=== PATIENT | male | born 1955 | race Caucasian/White ===

== ENCOUNTER 2018-11-07 21:10 | Inpatient (IN) | payer MEDICARE, SELFPAY ==
[2018-11-07 21:11] VITALS: BP 203/106; PULSE 77; RESP 18; TEMP 36.8; O2SAT 94; BMI 38.4
--- NOTE | 2018-11-07 21:30 | RAD_ITS ---
STUDY: X-RAY - RIGHT WRIST REASON FOR EXAM: Male, 63 years old. Status post fall. Right wrist pain. TECHNIQUE: 3 view(s) of the wrist were obtained. COMPARISON: None. FINDINGS: Normal visualized distal radius and ulna. Normal radiocarpal articulation. Normal distal radioulnar articulation. Normal carpal bones. Normal carpal articulations. There is a small tiny ill-defined calcification of the posterior aspect of the wrist of undetermined significance. Normal carpometacarpal articulation of the thumb. Normal second through fifth carpometacarpal articulations. Normal visualized metacarpal bones. The soft tissue structures are unremarkable. RAD/Wrist min 3 Views IMPRESSION: No demonstrated acute osseous injury. Electronically Signed: Bijan Urbina MD at 22:28 EST Tel , Service support ,
[2018-11-07 22:33] VITALS: BP 124/71; PULSE 74; RESP 16; O2SAT 97
--- NOTE | 2018-11-07 23:35 | RAD_ITS ---
HISTORY: MULTIPLE WOUNDS ON LEFT FOOT, LARGE WOUND AT LATERAL ASPECT OF 5TH MTP JOINTBEST IMAGES POSSIBLE, PATIENT UNABLE TO TOLERATE POSITIONS COMPARISON: None FINDINGS: XR left foot 3 views Left foot equinovarus deformity. Apparent surgical amputation of the fifth toe and majority of the fifth metatarsal. Residual bone fragment of the proximal and mid fifth metatarsal and this fragment shows irregularity and areas of lucency, possible osteomyelitis. Overlying large gas-filled soft tissue ulcer at the lateral midfoot. Apparent bone destruction with osteomyelitis at the base of the fourth metatarsal and possibly base of the third metatarsal. Underlying osteoarthritis of the tarsometatarsal joints. No acute fracture seen. No radiopaque foreign body. RAD/Foot min 3 Views IMPRESSION: 1. Large soft tissue ulcer and considerable left foot deformity, details above. Probable osteomyelitis. 2. If not already performed, further correlation with 3 phase bone scan could be obtained. at 0102 Reported and signed by: Ted iGl MD Electronically Signed: Ted Gil, at 1:01 EST Tel , Service support ,
[2018-11-07 23:46] LABS: Anion Gap 6 (5-15); BUN 19 mg/dL (7-18); BUN/Creat Ratio 21.4 RATIO (10-20); Calcium,Total 8.6 mg/dL (8.5-10.1); Chloride 103 mmol/L (98-107); Creatinine, Serum 0.89 mg/dL (0.70-1.30); EST Glomerular Filtration Rate 93 mL/min (>60); Est Glom Filt Rate - Afr Amer 112 mL/min (>60); Estimated Creatinine Clearance 87.16 ml/min; Glucose 123 mg/dL (74-106); Potassium 4.1 mmol/L (3.5-5.1); Sodium Level 134 mmol/L (136-145)
[2018-11-07 23:50] LABS: Absolute Lymphocyte Count 2.81 X10^3/ul (0.83-4.51); Absolute Neutrophil Count 5.3 X10^3/uL (2.0-7.7); Basophil# 0.06 X10^3/uL; Basophil% 0.6 % (0-1); Eosinophil# 0.73 X10^3/uL; Eosinophils% 7.6 % (0-5); Hematocrit 43.3 % (40-54); Hemoglobin 13.3 g/dl (13.0-16.5); Lymphocyte # 2.81 X10^3/ul (4.0); Lymphocyte % 29.3 % (19-41); Mean Corp Hgb Conc 30.7 g/gl (32-36); Mean Corpuscular Hgb 24.1 pg (27.0-32.0); Mean Corpuscular Volume 78.3 fL (80-94); Mean Platelet Vol. 9.1 fl (6.2-12.0); Monocyte# 0.67 X10^3/uL; Neutrophil # 5.31 X10^3/uL (2.7-7.7); Neutrophil % 55.3 % (47-70); Platelet Count 282 K/mm3 (150-450); RBC Distribution Width SD 42.8 fl (35.1-43.9); Red Blood Count 5.53 M/mm3 (4.6-6.2); White Blood Count 9.6 K/mm3 (4.4-11.0)
[2018-11-07 23:59] LABS: Erythrocyte Sedimentation Rate 59 mm/hr (0-20); POSITIVE COUNT NO; POSITIVE DIFFERENTIAL NO; POSITIVE MORPHOLOGY NO
[2018-11-08 00:33] VITALS: BP 142/98; PULSE 72; RESP 16; TEMP 36.1; O2SAT 93
--- NOTE | 2018-11-08 00:39 | ED.DCSUM_ITS ---
- ER Visit Summary Date of Service: 11/08/18 Chief Complaint: Left foot wound and wrist pain. History of Present Illness: The patient is a 63 M with multiple medical issues including diabetes and a chronic left foot wound. He has been unable to go to wound care or see any physicians for this and has essentially been homeless. He is out of all of his medication. His left foot wound is getting worse and he has been unable to bear any weight. He was using a wheelchair but now his daughter is no longer willing to help him and he states that she kicked him out of her house tonight he has no vertigo and no way to ambulate. He also fell and injured his right wrist a few days ago so cannot even use a wheelchair or a walker because of right wrist pain. Denies any other injuries associated with his fall. Physical Examination: He is hypertensive but other vitals are within normal limits. He appears somewhat disheveled. Heart tones are regular and without murmur. Lungs are clear bilaterally. Abdomen is soft and nontender. He has no focal or lateralizing neuro findings. Mental status is normal. He has tenderness on the distal radius of the right wrist but skin is intact and he has a normal distal neurovascular examination. No back tenderness. He has extensive stasis dermatitis changes and edema of both lower extremities. Skin is dry and cracked in both feet. Several superficial wounds noted and on his left foot but there is a sizable wound, several centimeters deep on his left mid foot laterally with 5-6 cm of surrounding erythema and foul-smelling purulent drainage. Test Results: Sedimentation rate mildly elevated but not that significant when adjusted for age. Other labs fairly unremarkable. Left foot x-ray reveals osteomyelitis. Right wrist x-ray negative Emergency Department Course and Treatment: He has a significant left foot wound with surrounding cellulitis and possible osteomyelitis on x-ray. He is unable to bear weight and he is homeless. I feel he meets criteria for admission for podiatry consultation, possible ID consultation, and probable usp placement after procedure. He had no rapid progression of the cellulitis here to suggest necrotizing fasciitis. The case was discussed with the hospitalist and he was treated with Zosyn and vancomycin Treatment Plan: Admit medically Disposition: Full admission Impression: Initial encounter left foot osteomyelitis with cellulitis, medication noncompliance This note was generated with [employer] software. It may contain incorrect words, spelling, and punctuation that were not noted in review of the chart prior to signing ED Disposition - Plan for ED Patient:
--- NOTE | 2018-11-08 01:23 | PCM.HP.STD ---
Problem List (1) Osteomyelitis Status: Acute History of Present Illness Date of Admission: 11/08/18 Chief Complaint: leg wound The patient is a 63 year old M with a significant history of type 2 diabetes; asthma; hypertension; CAD s/p CABG; hyperlipidemia; Pacemaker with defibrillator who presented to the emergency department because of inability to bear weight on his legs secondary to wound on his left leg. Patient reports that he used to use a walker to move around but two days ago, he had pain in his right wrist making it more difficult for him to use the walker to bear weight on his feet. He reported that the wound on his left leg has been going on for about 2 years. He reports no pain in the wound of his left leg because of neuropathy. However he reports neuropathic pain which he described as electric sensation in bilateral feet. He reported he is not being seen by a PCP because he violated his gabapentin contracts and because he could not get any more gabapentin he decided to throw away all his medicines and not follow-up medically. Emergency department doctor reported that patient used to live with her daughter but patient has been thrown out of his daughter's house. However upon my interaction with patient he reported that he still lives with his daughter and he has not been thrown out. X-ray of his left foot at emergency department showed probable osteomyelitis. He reported that his right wrist snapped and ever since he has had pain in his right wrist. X-ray of his right wrist at emergency department was unremarkable. Past Medical History Medical History: Medical History (Last Reviewed 11/08/18 @ 07:43 by Holden Massey MD) Diabetes E11.9 HTN (hypertension) I10 Allergies Sulfa (Sulfonamide Antibiotics) Allergy (Verified 07/18/16 16:31) Other Home Medications: Ambulatory Orders Medication Instructions Recorded Aspirin E.C. [Ecotrin] 650 mg PO BID 07/18/16 Acetaminophen [Tylenol] 650 mg PO BID 11/07/18 DiphenhydrAMINE [Benadryl] 50 mg PO BID 11/07/18 Surgical History: coronary bypass surgery, - - permanent pacemaker with defibrillator ; amputation of last toe of left foot; right wrist surgery; mastoidectomy. Lives: With Family Smoking Status: Former smoker Alcohol: None Drugs: Marijuana - *Family History Maternal History Items: Dementia, Heart Disease, Hypertension Paternal History Items: Heart Disease Review of Systems Constitutional: Denies: Chills, Fever, Weight Change HEENT: Denies: Head Aches, Sinus Congestion, Sinus Drainage Cardiovascular: Denies: Chest Pain, Palpitations Respiratory: Denies: Cough, Shortness of breath at rest, Sputum production Gastrointestinal: Denies: Abdominal Pain, Nausea, Vomiting Genitourinary: Denies: Dysuria Musculoskeletal: Reports: Joint Pain - right wrist, Leg Pain - bilateral leg pain Skin: Reports: Wounds - left foot. Denies: Rash Neurological: Reports: - - shooting and electric sensation of bilateral legs.. Denies: Focal weakness Psychiatric: Denies: Anxiety, Depression, Homicidal Ideations, Suicidal Ideations Hematologic/ Lymphatic: Denies: Easy Bruising, Easy Bleeding VTE Information - Inpt Only VTE Present on Admission: No VTE Mechan Device Prophylaxis: None VTE Pharm Prophylaxis ordered?: Yes Patient Problems: Active and Suspected Problems (Last Updated 11/08/18 @ 07:27 by Holden Massey MD) Osteomyelitis (Acute) - Physical Exam General: Alert, Oriented x3, Cooperative, - - In bed shaking bilateral legs secondary to neuropathic pain HEENT: Atraumatic, Normocephalic Neck: Supple, Trachea Midline Lungs: Wheezes Cardiovascular: Regular rate, No murmurs Abdomen: Bowel Sounds Present, Soft, Non Tender Extremities: No edema, Diminished Peripheral Pulses Skin: - - No last toe of left leg. Deep wound at lateral side of left leg with black eschar and surrounding eryhthema. Dryness and scales of bilateral legs. Musculoskeletal: Tenderness - R wrist Neurological: Neuro grossly intact Psych/Mental Status: Normal Affect, Appropriate Vital Signs Temp Pulse Resp BP Pulse Ox 97.0 F L 72 16 142/98 H 93 11/08/18 00:33 11/08/18 00:33 11/08/18 00:33 11/08/18 00:33 11/08/18 00:33 Oxygen Delivery Method Room Air Weight: 117.934 kg Body Mass Index (BMI) 38.4 Laboratory Tests Past 24 Hrs 11/07/18 11/07/18 23:05 23:05 WBC 9.6 RBC 5.53 Hgb 13.3 Hct 43.3 MCV 78.3 L MCH 24.1 L MCHC 30.7 L RDW 15.0 H RDW Differential 42.8 Plt Count 282 MPV 9.1 Immature Gran % (Auto) 0.200 Neut % (Auto) 55.3 Lymph % (Auto) 29.3 [place] % (Auto) 7.0 Eos % (Auto) 7.6 H Baso % (Auto) 0.6 Absolute Neuts (auto) 5.3 Absolute Lymphs (auto) 2.81 Total Counted Not Reportable ESR 59 H Sodium 134 L Potassium 4.1 Chloride 103 Carbon Dioxide 25.0 Anion Gap 6 BUN 19 H Creatinine 0.89 Estim Creat Clear Calc 87.16 Est GFR (MDRD) Af Amer 112 Est GFR (MDRD) Non-Af 93 BUN/Creatinine Ratio 21.4 H Glucose 123 H Calcium 8.6 Assessment/Plan All Active Problems (Last Updated 11/08/18 @ 07:27 by Holden Massey MD) Osteomyelitis (Acute) The patient is a 63 year old M with a significant history of CAD S/P CABG; type 2 diabetes; asthma; hypertension; hyperlipidemia; with Pacemaker and defibrillator; and with probable osteomyelitis of his left foot. Probable osteomyelitis of the left foot Likely chronic X-ray finding of probable osteomyelitis. Patient reported that he has a defibrillator and pacemaker. The last time that he had MRI, the pacemaker company had to adjust his pacemaker before he could have the MRI. Radiologist recommended a triple bone scan. Will not do further imaging at this time. Will consult orthopedic surgery and infectious disease to optimize management. Assistant Speech Language Pathologist was suggested but patient declined a travel cota evaluation saying that he wants his leg amputated and podiatry can only amputate his foot; and further he was not happy with a previous podiatry interaction. We will get bilateral arterial Doppler ESR on admission was elevated at 59 We will check CRP Discussed with emergency department doctor who started patient on vancomycin and Zosyn. We will continue vancomycin and Zosyn. Wound culture was taken while at ED. Patient may need bone biopsy. HTN His blood pressure on admission was 203/106 but it trended down. Likely spurious or because of pain. In any case his blood pressure remained outside goal. As needed labetalol ordered. Consider starting patient on scheduled blood pressure meds. Trend blood pressures. Neuropathic pain Will re-start patient on gabapentin Left wrist pain. No radiographic evidence of fracture Likely muscle sprain/strain PRN oxycodone and tylenol ordered Chronic sinusitis Patient report chronic sinusitis as a child following some procedure (?). Requested benadryl that he reports he uses at home. Will order Claritin at this time. Diabetes Mellitus Blood glucose on BMP at time of admission was within goal Accucheck QACHS ordered. consider discontinuing accuchecks if blood glucose remains within goal . Asthma Noted mild wheezes prn albuterol ordered. History of CABG Consider aspirin after probable surgery of leg. DVT Prophylaxis Heparin subcutaneous Code Visit Inpatient E&M: 32406 Init Hosp L3
[2018-11-08 02:06] VITALS: BMI 40.9
[2018-11-08 02:09] VITALS: BP 140/99; PULSE 75; RESP 18; TEMP 36.6; O2SAT 97
[2018-11-08 02:17] VITALS: BMI 41.0
[2018-11-08] MEDS: oxyCODONE 5 MG Tablet PO ×2 (03:09→10:18)
[2018-11-08] MEDS: Gabapentin 100 MG Capsule 200 MG PO ×2 (03:09→08:26)
--- NOTE | 2018-11-08 04:09 | PCM.RX.CS ---
Consult Pharmacy has been consulted to manage selected antiobiotic: Vancomycin Type of Consult: New start Suspected Infection: Other Prior Doses of Antibiotics Received/Current Regimen: Medications Discontinued Medications Vancomycin HCl 1,500 mg/ (Sodium Chloride) 530 mls @ 250 mls/hr IV X1 ONE Stop: 11/08/18 03:29 Last Admin: 11/08/18 02:29 Dose: 250 mls/hr Labs: Sodium 134 mmol/L (136-145) L 11/07/18 23:05 Potassium 4.1 mmol/L (3.5-5.1) 11/07/18 23:05 Chloride 103 mmol/L (98-107) 11/07/18 23:05 Carbon Dioxide 25.0 mmol/L (21.0-32.0) 11/07/18 23:05 Anion Gap 6 (5-15) 11/07/18 23:05 BUN 19 mg/dL (7-18) H 11/07/18 23:05 Creatinine 0.89 mg/dL (0.70-1.30) 11/07/18 23:05 Est GFR (MDRD) Af Amer 112 mL/min (>60) 11/07/18 23:05 Est GFR (MDRD) Non-Af 93 mL/min (>60) 11/07/18 23:05 BUN/Creatinine Ratio 21.4 RATIO (10-20) H 11/07/18 23:05 Glucose 123 mg/dL (74-106) H 11/07/18 23:05 Weight used for dosin kg Estimated Creatinine Clearance: 87 mL/min Goal Trough: 15-20 mcg/mL Pharmacy Plan for Drug Dosing: Initial dose 1500mg IV x1, 2000mg IV q12h per policy with trough prior to 4th dose. Pharmacy Service will continue to monitor and adjust dosing as required. Follow-Up Labs: Trough Vancomycin - 11/09 @ 0930
[2018-11-08] MEDS: Heparin Injection (Vial) 5,000 UNIT/ML VIAL 5000 UNIT SC (05:41)
[2018-11-08] MEDS: 0.9% NaCl Peripheral Flush Adult/Peds IV (05:41)
[2018-11-08 06:56] LABS: Bedside Glucose 141 mg/dL (70-110)
[2018-11-08 08:25] VITALS: BP 167/93; PULSE 91; RESP 18; TEMP 36.4; O2SAT 96
[2018-11-08] MEDS: Acetaminophen 325 MG Tablet 650 MG PO (08:26)
[2018-11-08] MEDS: Glucerna Shake 120 ML LIQUID PO (08:31)
--- NOTE | 2018-11-08 09:43 | NURSING ---
wound photo: left lateral foot
--- NOTE | 2018-11-08 09:59 | CASEMGMT ---
THOMAS CM Note: Insurance search for [facility] facilities as transfer is being recommended by physician. Per [facility] site, [facility] facilities include: [facility], [facility], [facility], [facility]. THOMAS REYES BSN ACM
[2018-11-08] MEDS: DiphenhydrAMINE 25 MG Capsule 50 MG PO (10:18)
[2018-11-08] MEDS: Lisinopril 20 MG Tablet PO (10:19)
[2018-11-08 10:44] LABS: M R Staph aureus DNA By PCR Negative (Negative); Probe Check PASS; Specimen Processing Control PASS; Staph aureus DNA By PCR POSITIVE (Negative)
--- NOTE | 2018-11-08 11:02 | NURSING ---
face sheet faxed to [facility] for transfer. sent to [phone] per instructions.
[2018-11-08] MEDS: Insulin Lispro 100 UNIT/ML INSULN.PEN SC (11:17)
[2018-11-08 11:20] VITALS: BP 149/75; PULSE 79; RESP 18; TEMP 37.1; O2SAT 97
[2018-11-08 11:26] LABS: Bedside Glucose 194 mg/dL (70-110)
--- NOTE | 2018-11-08 12:18 | NURSING ---
report called to THOMAS Montero at [facility] for patient transfer.
--- NOTE | 2018-11-10 20:44 | PCM.DC.SUM ---
Discharge Date and Diagnosis Date of Admission: 11/08/18 Date of Discharge: 11/08/18 - Primary Discharge Diagnosis #1 osteomyelitis of the left foot with deep wound infection secondary to diabetic neuropathy-multiple gram negative organisms and gram-positive organisms cultured #2 renal vascular disease of the lower extremity secondary to type 2 diabetes #3 hypertension #4 type 2 diabetes #5 noncompliance with medical regimen #6 coronary artery disease #7 chronic low back pain Hospital Course and Treatment Consultations 11/08/18 02:51 Consult: Onc/Wound/health careers instructor Routine Comment: ulcer on left foot Operations: None Procedures: None Summary of Care Provided: The patient is a 63 year old M was seen in the emergency room at [facility] with a chief complaint of a nonhealing wound to his left lateral foot, patient had undergone partial left foot amputation approximately a year ago at [facility]. Patient has type 2 diabetes but is noncompliant with treatment and is currently not taking any medications at the time he was seen in the emergency room. Valuation in the emergency room revealed the patient to have a large wound on his left lateral foot, left foot x-ray was obtained which revealed osteomyelitis, sedimentation rate was mildly elevated. Patient was given IV Zosyn and vancomycin, he was admitted to [place] [id number], [facility] infectious diseases and podiatry was written to see the patient as well as wound care nurse. Wound care nurse saw the patient and his wound was cleaned and new dressing was applied. In talking with the patient, he initially wanted a below the knee amputation on the left leg but then stated that he would consider any surgery to save the function of the foot. Podiatry examined the x-rays and felt that the patient was better served to undergo a below the knee amputation and so I decided to have the patient transferred to [facility] where he had undergone surgery a year before and he had seen a vascular surgeon. Patient was in agreement with this. The ID and podiatry consultations were canceled. On 11/08/18, patient was seen and examined: On examination he appeared in good health and spirits. Vital signs as documented. Skin warm and dry and without overt rashes. Neck without JVD. Lungs clear. Heart exam notable for regular rhythm, normal sounds and absence of murmurs, rubs or gallops. Abdomen unremarkable and without evidence of organomegaly, masses, or abdominal aortic enlargement. Extremities-there is a Charcot joint on the left ankle noted, left foot is wrapped with surgical dressing. Neuro: Cranial nerves II through XII are grossly intact, no focal motor deficits were noted. Psych: Patient is alert and oriented x3, he does not appear anxious or depressed On 11/08/18, patient was transferred to [facility] for further care. Final note: Patient's wound cultures grew out multiple organisms including gram-negative rods and gram-positive cocci. - Physical Exam Vital Signs Temp Pulse Resp BP Pulse Ox 98.7 F 79 18 149/75 H 97 11/08/18 11:20 11/08/18 11:20 11/08/18 11:20 11/08/18 11:20 11/08/18 11:20 Oxygen Delivery Method Room Air Weight: 125.9 kg Body Mass Index (BMI) 40.9 Intake and Output for Last 24 Hours 11/08/18 11/09/18 11/10/18 23:59 23:59 23:59 Intake Total 1627 / 1627 Output Total 1500 / 1500 Balance 127 / 127 Microbiology Past 72 Hours 11/08/18 01:20 Gram Stain - Final Wound - Left Foot Wound Culture - Preliminary Alcaligenes faecalis ssp faeca Gram negative russell#2 Staphylococcus aureus Gram negative russell GNR lactose inventory specialist manager Gram positive organism 11/08/18 03:20 Blood Culture - Preliminary Blood Culture (Wb) - Right Hand No growth in 48 hours. 11/08/18 03:17 Blood Culture - Preliminary Blood Culture (Wb) - Anticubital Right No growth in 48 hours. Home Medications: Medications to take at Discharge Aspirin E.C. [Ecotrin] 650 mg PO BID 07/18/16 Acetaminophen [Tylenol] 650 mg PO BID 11/07/18 DiphenhydrAMINE [Benadryl] 50 mg PO BID 11/07/18 Primary Care Physician: Care Physician,No Primary [Primary Care Provider] - Disposition: Acute care Hospital Minutes spent on discharge:: 32 Patient Condition:: Stable Medical Necessity - Tobacco Use Smoking Status: Former smoker Meaningful Use Info Meaningful Use Diagnoses (Choose all that apply): None applicable Code Visit OBSV E&M: 55892 Observ/hosp same date L3
--- NOTE | 2018-11-10 20:52 | DS.PCM_ITS ---
Discharge Date and Diagnosis Date of Admission: 11/08/18 Date of Discharge: 11/08/18 - Primary Discharge Diagnosis #1 osteomyelitis of the left foot with deep wound infection secondary to diabetic neuropathy-multiple gram negative organisms and gram-positive organisms cultured #2 renal vascular disease of the lower extremity secondary to type 2 diabetes #3 hypertension #4 type 2 diabetes #5 noncompliance with medical regimen #6 coronary artery disease #7 chronic low back pain Hospital Course and Treatment Consultations 11/08/18 02:51 Consult: Onc/Wound/glass loading equipment tender Routine Comment: ulcer on left foot Operations: None Procedures: None Summary of Care Provided: The patient is a 63 year old M was seen in the emergency room at [facility] with a chief complaint of a nonhealing wound to his left lateral foot, patient had undergone partial left foot amputation approximately a year ago at [facility]. Patient has type 2 diabetes but is noncompliant with treatment and is currently not taking any medications at the time he was seen in the emergency room. Valuation in the emergency room revealed the patient to have a large wound on his left lateral foot, left foot x-ray was obtained which revealed osteomyelitis, sedimentation rate was mildly elevated. Patient was given IV Zosyn and vancomycin, he was admitted to [place] [address], [facility] infectious diseases and podiatry was written to see the patient as well as wound care nurse. Wound care nurse saw the patient and his wound was cleaned and new dressing was applied. In talking with the patient, he initially wanted a below the knee amputation on the left leg but then stated that he would consider any surgery to save the function of the foot. Podiatry examined the x-rays and felt that the patient was better served to undergo a below the knee amputation and so I decided to have the patient transferred to [facility] where he had undergone surgery a year before and he had seen a vascular surgeon. Patient was in agreement with this. The ID and podiatry consultations were canceled. On 11/08/18, patient was seen and examined: On examination he appeared in good health and spirits. Vital signs as documented. Skin warm and dry and without overt rashes. Neck without JVD. Lungs clear. Heart exam notable for regular rhythm, normal sounds and absence of murmurs, rubs or gallops. Abdomen unremarkable and without evidence of organomegaly, masses, or abdominal aortic enlargement. Extremities-there is a Charcot joint on the left ankle noted, left foot is wrapped with surgical dressing. Neuro: Cranial nerves II through XII are grossly intact, no focal motor deficits were noted. Psych: Patient is alert and oriented x3, he does not appear anxious or depressed On 11/08/18, patient was transferred to [facility] for further care. Final note: Patient's wound cultures grew out multiple organisms including gram- negative rods and gram-positive cocci. - Physical Exam Vital Signs Temp Pulse Resp BP Pulse Ox 98.7 F 79 18 149/75 H 97 11/08/18 11:20 11/08/18 11:20 11/08/18 11:20 11/08/18 11:20 11/08/18 11:20 Oxygen Delivery Method Room Air Weight: 125.9 kg Body Mass Index (BMI) 40.9 Intake and Output for Last 24 Hours 11/08/18 11/09/18 11/10/18 23:59 23:59 23:59 Intake Total 1627 / 1627 Output Total 1500 / 1500 Balance 127 / 127 Microbiology Past 72 Hours 11/08/18 01:20 Gram Stain - Final Wound - Left Foot Wound Culture - Preliminary Alcaligenes faecalis ssp faeca Gram negative russell#2 Staphylococcus aureus Gram negative russell GNR lactose face hardener Gram positive organism 11/08/18 03:20 Blood Culture - Preliminary Blood Culture (Wb) - Right Hand No growth in 48 hours. 11/08/18 03:17 Blood Culture - Preliminary Blood Culture (Wb) - Anticubital Right No growth in 48 hours. Home Medications: Medications to take at Discharge Aspirin E.C. [Ecotrin] 650 mg PO BID 07/18/16 Acetaminophen [Tylenol] 650 mg PO BID 11/07/18 DiphenhydrAMINE [Benadryl] 50 mg PO BID 11/07/18 Primary Care Physician: Care Physician,No Primary [Primary Care Provider] - Disposition: Acute care Hospital Minutes spent on discharge:: 32 Patient Condition:: Stable Medical Necessity - Tobacco Use Smoking Status: Former smoker Meaningful Use Info Meaningful Use Diagnoses (Choose all that apply): None applicable Code Visit OBSV E&M: 48840 Observ/hosp same date L3
== END 2018-11-08 12:30 | disposition short-term general hospital (02) | DRG 638 ==
LOC: ED 11-08 00:36 → MS2 11-08 01:40
PROVIDERS: Admitting Provider Hospitalist; Emergency Provider Emergency Medicine; Visit Provider Internal Medicine
DX: E11.69 Type 2 diabetes mellitus with other specified complication (principal); M86.672 Other chronic osteomyelitis, left ankle and foot; L03.116 Cellulitis of left lower limb; I25.10 Atherosclerotic heart disease of native coronary artery without angina pectoris; E11.40 Type 2 diabetes mellitus with diabetic neuropathy, unspecified; E11.51 Type 2 diabetes mellitus with diabetic peripheral angiopathy without gangrene; M25.532 Pain in left wrist; Z91.19 Patient's noncompliance with other medical treatment and regimen; J45.909 Unspecified asthma, uncomplicated; E78.5 Hyperlipidemia, unspecified; G89.29 Other chronic pain; M54.5 Low back pain; M14.672 Charcot's joint, left ankle and foot; Z89.422 Acquired absence of other left toe(s); Z95.810 Presence of automatic (implantable) cardiac defibrillator; Z95.1 Presence of aortocoronary bypass graft; Z87.891 Personal history of nicotine dependence; Z23 Encounter for immunization
CPT/HCPCS: 36415; 73110; 73630; 80048; 82962; 85025; 85652; 86140; 87040; 87070; 87075; 87077; 87186; 87205; 87640; 97802; 99284; J7040; J7050; 90686; A4216

== ENCOUNTER 2019-01-03 07:04 | Inpatient (IN) | payer MEDICARE, SELFPAY ==
[2019-01-03] VITALS (34 sets, daily range): BP systolic 94–172; BP diastolic 41–109; PULSE 71–137; RESP 13–31; TEMP 32.2–37.7; O2SAT 92–100; BMI 39.4; BMI 39.9
--- NOTE | 2019-01-03 07:14 | EKG12_ITS ---
Test Reason : CP Blood Pressure : / mmHG Vent. Rate : 116 BPM Atrial Rate : 113 BPM P-R Int : 000 ms QRS Dur : 136 ms QT Int : 370 ms P-R-T Axes : 052 182 047 degrees QTc Int : 514 ms Somatic/Motion Artifact Electronic Ventricular Pacemaker Confirmed by REINALDO ARMANDO, SHARON ([id number]), dictionary editor JACKELYN GANN ([id number]) on 01/06/2019 10:49:59 AM Referred By: BRETT Confirmed By:SHARON NAJERA MD
[2019-01-03] MEDS: Succinylcholine Chloride 200 MG/10 ML Vial 120 MG IV (07:18)
[2019-01-03] MEDS: Propofol 10MG/Ml 1,000 MG/100 ML Bottle 7.476 MG CONT INF ×4 (07:23→22:13)
[2019-01-03 07:34] LABS: International Normalized Ratio 1.1; Prothrombin Time (Protime)PT. 13.7 SECONDS (11.7-14.9)
[2019-01-03] MEDS: fentaNYL 100 MCG/2 ML Ampul IV (07:36)
[2019-01-03] MEDS: fentaNYL drip 100 ML 2.5 MCG CONT INF ×2 (07:41→23:20)
--- NOTE | 2019-01-03 07:45 | RAD_ITS ---
STUDY: X-RAY CHEST REASON FOR EXAM: Male, 63 years old. Shortness of breath/dyspnea. TECHNIQUE: Single AP portable view of the chest. COMPARISON: Comparison is made with prior study dated July 18, 2016. FINDINGS: An endotracheal tube is in situ. The tip is at 2.6 cm proximal to the shabbir. There is evidence of vascular congestion and CHF worse at the right lung base. Blunting of the costophrenic angles. Sternal cerclage wires and vascular clips are present from a prior sternotomy and coronary artery bypass graft procedure (CABG). Cardiomegaly. A left-sided dual-chamber pacemaker is seen. Normal mediastinum and maxwell. Normal visualized pulmonary arteries. There is atherosclerotic calcification of the aortic arch with tortuosity. Normal visualized thoracic spine. Normal visualized ribs, clavicles, and shoulders. There is no demonstrated abnormality of the visualized soft tissue structures of the upper abdomen. RAD/Chest 1 View (Portable) IMPRESSION: An endotracheal tube is in situ and the tip is at 2.6 sinus proximal to the shabbir. CHF. Electronically Signed: José Miguel Chao, at 8:53 EDT , Service support ,
[2019-01-03 07:47] LABS: ALB/GLOB Ratio 0.9 RATIO (0.9-2.4); AST(SGOT) 33 U/L (15-37); Alanine Aminotransfer ALT/SGPT 31 U/L (16-61); Albumin, Serum 3.8 g/dL (3.2-5.0); Alkaline Phosphatase 81 U/L (45-117); Anion Gap 19 (5-15); BUN 21 mg/dL (7-18); BUN/Creat Ratio 14.5 RATIO (10-20); Calcium,Total 8.7 mg/dL (8.5-10.1); Chloride 101 mmol/L (98-107); Creatinine, Serum 1.45 mg/dL (0.70-1.30); EST Glomerular Filtration Rate 53 mL/min (>60); Est Glom Filt Rate - Afr Amer 64 mL/min (>60); Estimated Creatinine Clearance 55.24 ml/min; Globulin 4.4 g/dL (2.2-4.2); Glucose 325 mg/dL (74-106); Potassium 4.3 mmol/L (3.5-5.1); Protein, Total 8.2 g/dL (6.4-8.2); Sodium Level 135 mmol/L (136-145)
[2019-01-03] MEDS: MethylPREDNISolone 125 MG/2 ML Vial IV (07:49)
[2019-01-03 07:50] LABS: Mucous, Urine 0 SEEN /hpf (<or=2+)
[2019-01-03] MEDS: Albuterol 2.5 MG/3 ML VIAL.NEB. INHALATION ×2 (07:50→08:12)
[2019-01-03 07:51] LABS: Hematocrit 50.6 % (40-54); Hemoglobin 16.3 g/dl (13.0-16.5); Mean Corp Hgb Conc 32.2 g/gl (32-36); Mean Corpuscular Hgb 27.3 pg (27.0-32.0); Mean Corpuscular Volume 84.8 fL (80-94); Mean Platelet Vol. 9.5 fl (6.2-12.0); Platelet Count 301 K/mm3 (150-450); RBC Distribution Width CV 18.8 % (11.6-14.6); RBC Distribution Width SD 58.6 fl (35.1-43.9); Red Blood Count 5.97 M/mm3 (4.6-6.2); White Blood Count 20.4 K/mm3 (4.4-11.0)
[2019-01-03 07:52] LABS: POSITIVE COUNT NO; POSITIVE DIFFERENTIAL YES; POSITIVE MORPHOLOGY NO
[2019-01-03 07:52] LABS: Color, Urine Yellow (Yellow); Glucose, Dipstick 50 mg/dl (Normal); Ketone-Dipstick Negative (Negative); Leukocyte Esterase-Dipstick 25 /ul (Negative); Nitrite-Dipstick Negative (Negative); Occult Blood-Urine 25 /ul (Negative); Protein-Dipstick 500 mg/dl (Negative); Specific Gravity, Urine 1.015 (1.002-1.030); Urine Bilirubin Dipstick Negative (Negative); Urine Clarity Clear (Clear); Urine Urobilinogen Normal (Normal); Urine pH 6.5 (5.0 - 8.0)
[2019-01-03 07:53] LABS: Lactic Acid 10.2 mmol/L (0.4-2.0)
--- NOTE | 2019-01-03 07:53 | ED.RN ---
PT ARRIVED TO ED VIA [facility]. PT WAS PALE DIAPHORETIC AND EXTREMELY LABORED BREATHING WITH NRB IN PLACE. PT VERBAL RESPONSES WERE ONE WORD AND DIFFICULT TO UNDERSTAND. PT WAS IN TRIPOD POSITION. UNABLE TO GET A BP UPON ARRIVAL. EMS STATES PT DENIES ANY PAIN BUT WOKE UP SOB. STATED THAT FAMILY CLAIMED HE HAS HAD A COUGH AT NIGHT THE LAST COUPLE NIGHTS. DR PHAN WAS AT THE BEDSIDE UPON ARRIVAL. PT WAS VISIBLY GETTING TIRED FROM AMOUNT OF EFFORT NEEDED TO BREATH SO THE DECISION TO INTUBATE WAS MADE AND PT WAS AGREEABLE. PT WAS THEN MEDICATED WITH ETOMIDATE AND SUCC AND THEN INTUBATED FROM A SITTING POSITION. 7.5 ET TUBE PLACED 23 AT LIP. GOOD COLOR CHANGE AND EQUAL BREATH SOUNDS. OG PLACED AND TEMP ACOSTA PLACED WELL. PT HAS A 20 IV IN LEFT AND RIGHT HANDS. PROPOFOL IS INFUSING INTO THE LEFT HAND AND HAS BEEN TITRATED TO 30 MCG/KG/HR AND FENTANYL IS INFUSING IN THE RIGHT HAND AT 50MCG/HR. PT IS CURRENTLY RESTING COMFORTABLY. PT HAD A LEFT ABOVE THE KNEE AMPUTATION ROUGHLY 2 MONTHS AGO. INCISION SITE IS HEALING NICELY. NO SIGNS OF REDNESS OR SWELLING. PTS URINE IS CLEAR AND YELLOW.
[2019-01-03 07:57] LABS: Bacteria RARE /hpf (None Seen); Red Blood Cells-Urine 0-5 SEEN /hpf (0-5); Squamous Epithelial Cells - UA 0-5 SEEN /hpf (0-5); White Blood Cells 0-5 SEEN /hpf (0-5)
[2019-01-03] MEDS: Ipratropium/Albuterol Sulfate 3 ML AMPUL.NEB INHALATION ×4 (08:12→18:34)
[2019-01-03] MEDS: 0.9% Normal Saline 1,000 ML 999 ML IV ×2 (08:12→09:31)
--- NOTE | 2019-01-03 08:12 | ED.RN ---
PT WAS ATTEMPTING TO REACH UP AND GRAB TUBE. SEDATION WAS INCREASED AND SOFT RESTRAINTS WERE PLACED.
[2019-01-03 08:20] LABS: BNP,B-Type NATRIURETIC PEPTIDE 139.4 pg/mL (0-100)
[2019-01-03 08:32] LABS: Basophil 1 % (0-1); Eosinophil 4 % (0-5); Lymphocyte 49 % (19-41); Metamyelocyte 2 % (0-1); Monocyte 5 % (0-10); Neutrophil-Band 2 % (0-5); Neutrophil-Segmented 37 % (47-70); Total Cells Counted 100 (MANUAL DIFF)
[2019-01-03 08:35] LABS: Anisocytosis 1+; Differential Indicated MANUAL DIFF; Platelet Estimate ADEQUATE (ADEQ); Polychromasia 1+
[2019-01-03 08:37] LABS: Neutrophil # 7.96 X10^3/uL (2.7-7.7)
[2019-01-03 08:38] LABS: Absolute Lymphocyte Count 9.99 X10^3/ul (0.83-4.51); Lymphocyte # 9.99 X10^3/ul (4.0)
[2019-01-03 08:41] LABS: Base Excess -10 mmol/L (-2 to +2); Bicarbonate 18.8 mmol/L (22-26); Blood Gas Specimen Type ART; FI02 100; Mode A-C; O2 Delivery Device Vent; PEEP 5; PO2 289 mmHG (75-100); RR 16; SITE R Radial; SO2 100 % (95-99); Time Given 840; Total Carbon Dioxide 20 mmol/L; Vt 500; pCO2 51.1 mmHg (35-45); pH 7.17 (7.35-7.45)
--- NOTE | 2019-01-03 08:47 | CPS ---
0840...ABG critical value PH. Result given to ER physician Stefano.
--- NOTE | 2019-01-03 09:07 | ED.VISSUMM ---
- ER Visit Summary Date of Service: 01/03/19 Chief Complaint: Shortness of breath History of Present Illness: The patient is a 63 M who presents with shortness of breath. According to EMS he woke up very short of breath this morning. The history from him is limited because of his extreme shortness of breath and difficulty speaking. He states that he had a cough for a month. No fevers or chest pain. He does have a history of COPD. No documented history of CHF. According to EMS he was 60% on room air. They applied a nonrebreather mask. He does smoke marijuana every day. Physical Examination: Vital signs reviewed. Patient tachypneic, tachycardic. Temperature normal. He is extremely diaphoretic. HEENT exam unremarkable. Heart is tachycardic and regular with no murmurs. Lungs have diminished sounds and wheezing bilaterally. He is tachypneic. Abdomen soft and nondistended. Extremities reveal no edema. He does have a left above-knee amputation. His neurologic exam reveals he is alert and oriented and can answer questions but he is extremely short of breath while doing so. Test Results: EKG was paced rhythm with artifact. White blood cell count 20.4, creatinine 1.45, troponin 0 0.032, lactate 10.2. ABG is 7.17/51/289/18.8 on the ventilator. Chest x-ray read by radiologist reveals CHF. Emergency Department Course and Treatment: The patient was starting to get tired upon his arrival. I electively intubated him using etomidate and succinylcholine. He was intubated sitting up using the glide scope. An endotracheal tube was placed without difficulty. He was given Solu-Medrol and aerosol treatments. I empirically given vancomycin and Zosyn. His chest x-ray is reading CHF but he does have signs of an infectious etiology. At this point the patient will be admitted to the ICU. I spoke with the hospitalist and the race relations adviser. Treatment Plan: [] Disposition: Admit to ICU Impression: Acute respiratory failure Undifferentiated shock Lactic acidosis This note was generated with Br[employer]ation software. It may contain incorrect words, spelling, and punctuation that were not noted in review of the chart prior to signing ED Disposition - Plan for ED Patient: Referrals: Care Physician,No Primary [Primary Care Provider] -
--- NOTE | 2019-01-03 09:10 | ED.DCSUM_ITS ---
- ER Visit Summary Date of Service: 01/03/19 Chief Complaint: Shortness of breath History of Present Illness: The patient is a 63 M who presents with shortness of breath. According to EMS he woke up very short of breath this morning. The history from him is limited because of his extreme shortness of breath and difficulty speaking. He states that he had a cough for a month. No fevers or chest pain. He does have a history of COPD. No documented history of CHF. According to EMS he was 60% on room air. They applied a nonrebreather mask. He does smoke marijuana every day. Physical Examination: Vital signs reviewed. Patient tachypneic, tachycardic. Temperature normal. He is extremely diaphoretic. HEENT exam unremarkable. Heart is tachycardic and regular with no murmurs. Lungs have diminished sounds and wheezing bilaterally. He is tachypneic. Abdomen soft and nondistended. Extremities reveal no edema. He does have a left above-knee amputation. His neurologic exam reveals he is alert and oriented and can answer questions but he is extremely short of breath while doing so. Test Results: EKG was paced rhythm with artifact. White blood cell count 20.4, creatinine 1.45, troponin 0 0.032, lactate 10.2. ABG is 7.17/51/289/18.8 on the ventilator. Chest x-ray read by radiologist reveals CHF. Emergency Department Course and Treatment: The patient was starting to get tired upon his arrival. I electively intubated him using etomidate and succinylcholine. He was intubated sitting up using the glide scope. An endotracheal tube was placed without difficulty. He was given Solu-Medrol and a erosol treatments. I empirically given vancomycin and Zosyn. His chest x-ray is reading CHF but he does have signs of an infectious etiology. At this point the patient will be admitted to the ICU. I spoke with the hospitalist and the equipment processer storage. Treatment Plan: [] Disposition: Admit to ICU Impression: Acute respiratory failure Undifferentiated shock Lactic acidosis This note was generated with [employer] software. It may contain incorrect words, spelling, and punctuation that were not noted in review of the chart p rior to signing ED Disposition - Plan for ED Patient: Referrals: Care Physician,No Primary [Primary Care Provider] -
--- NOTE | 2019-01-03 09:19 | ED.RN ---
UPON ASSESSMENT PT PULSE OX WAS 91-92 WITH A GOOD WAVE FORM AND RR WAS IN THE LOW 20'S. [facility] WAS CALLED TO COME SUCTION THE PT AND PULSE OX IMPROVED TO 96. PT TOLERATED WELL AND APPEARS TO BE RESTING COMFORTABLY. COOL WASH CLOTH WAS USED TO WIPE OF HIS FACE AND FOREHEAD SINCE THE PT IS NO LONGER DIAPHORETIC.
--- NOTE | 2019-01-03 10:39 | PCM.HP.STD ---
Problem List (1) Acute respiratory failure with hypoxia and hypercapnia Status: Acute (2) Gram-negative pneumonia Status: Acute (3) Severe sepsis Status: Acute (4) Respiratory acidosis Status: Acute (5) ARIANNE (acute kidney injury) Status: Acute History of Present Illness Date of Admission: 01/03/19 Chief Complaint: shortness of breath. The patient is a 63 year old M who is currently intubated and sedated so unable provide any history. History obtained through the emergency room physician and documentation. Patient presented with shortness of breath. Apparently, patient woke up with shortness of breath previously had had a cough for about a month. Patient was noted to be 6% on room air with EMS. Patient was placed on a nonrebreather. Given that it appears that the patient was tiring out decision was made in the emergency room to intubate the patient. Patient had a chest x-ray that was concerning for heart failure but clinically patient was not in appearance of heart failure and I was concerned more for pneumonia as patient was just hospitalized here 2 months ago the patient received on vancomycin and Zosyn. [] Past Medical History Medical History: Medical History (Last Updated 01/03/19 @ 10:44 by Bhanu Olmedo DO) CAD (coronary artery disease) I25.10 PAD (peripheral artery disease) I73.9 COPD (chronic obstructive pulmonary disease) J44.9 Diabetes E11.9 HTN (hypertension) I10 Allergies Sulfa (Sulfonamide Antibiotics) Allergy (Verified 07/18/16 16:31) Other Home Medications: Ambulatory Orders Medication Instructions Recorded Aspirin E.C. [Ecotrin] 650 mg PO BID 07/18/16 Acetaminophen [Tylenol] 650 mg PO BID 11/07/18 DiphenhydrAMINE [Benadryl] 50 mg PO BID 11/07/18 Carvedilol 6.25 mg PO BID 01/03/19 Escitalopram Oxalate [Lexapro] 10 mg PO DAILY 01/03/19 Ferrous Sulfate 325 mg PO DAILY 01/03/19 Lisinopril 5 mg PO DAILY 01/03/19 Metformin HCl [Glucophage] 850 mg PO BIDCM 01/03/19 Surgical History: coronary bypass surgery, - - permanent pacemaker with defibrillator ; amputation of last toe of left foot; right wrist surgery; mastoidectomy. left AKA Smoking Status: Never smoker Drugs: Marijuana - *Family History Maternal History Items: Dementia, Heart Disease, Hypertension Paternal History Items: Heart Disease Review of Systems Comment: Unable to obtain as patient is intubated and sedated. VTE Information - Inpt Only VTE Present on Admission: No VTE Mechan Device Prophylaxis: None VTE Pharm Prophylaxis ordered?: Yes Patient Problems: Active and Suspected Problems (Last Reviewed 11/08/18 @ 07:43 by Holden Massey MD) Acute respiratory failure with hypoxia and hypercapnia (Acute) Gram-negative pneumonia (Acute) Severe sepsis (Acute) Respiratory acidosis (Acute) ARIANNE (acute kidney injury) (Acute) - Physical Exam General: - - Intubated and sedated. Afebrile. On a ventilator. HEENT: Atraumatic, Normocephalic Oral: - - ET tube in place. Neck: No Nodes, Thyroid Normal Size and Texture Lungs: Normal air movement, - - Coarse breath sounds bilaterally Cardiovascular: Regular rate, Regular Rhythm, Normal S1, Normal S2, No murmurs Abdomen: Bowel Sounds Present, Soft, Non Tender, Non-Distended, No Hepato-splenomegaly Extremities: No edema, No Calf Tenderness Skin: - - Superficial ulcerations on his toes as well as his legs on the right lower extremity. The stump of the left sbepi-pju-[id number] amputation is clean and intact. Musculoskeletal: No Tenderness to Palpation of Joints or Extremities, Muscle Wasting Psych/Mental Status: - - Intubated and sedated Vital Signs Temp Pulse Resp BP Pulse Ox 36.6 C 85 20 H 124/80 H 98 01/03/19 10:01 01/03/19 10:01 01/03/19 10:01 01/03/19 10:01 01/03/19 10:01 Oxygen Flow Rate (L/min) 15 Oxygen Delivery Method Mechanical Ventilator Weight: 124.6 kg Body Mass Index (BMI) 39.4 Laboratory Tests Past 24 Hrs 01/03/19 01/03/19 01/03/19 07:09 07:09 07:09 WBC 20.4 H RBC 5.97 Hgb 16.3 Hct 50.6 MCV 84.8 MCH 27.3 MCHC 32.2 RDW 18.8 H RDW Differential 58.6 H Plt Count 301 MPV 9.5 Immature Gran % (Auto) PRODUCTION LINE WORKER Neut % (Auto) PRODUCTION LINE WORKER Lymph % (Auto) PRODUCTION LINE WORKER Marion % (Auto) PRODUCTION LINE WORKER Eos % (Auto) PRODUCTION LINE WORKER Baso % (Auto) PRODUCTION LINE WORKER Absolute Neuts (auto) 8.0 H Absolute Lymphs (auto) 9.99 H Total Counted 100 Neutrophils % (Manual) 37 L Band Neutrophils % 2 Lymphocytes % (Manual) 49 H Monocytes % (Manual) 5 Eosinophils % (Manual) 4 Basophils % (Manual) 1 Metamyelocytes % 2 H Diff Path Review May foll Platelet Estimate ADEQUATE Polychromasia 1+ Anisocytosis 1+ PT 13.7 INR 1.1 Specimen Type Sample Site pH Bicarbonate Actual POC Total CO2 Base Excess O2 Saturation O2 % ABG pCO2 ABG pO2 Respiration Rate O2 Delivery Device Vent Mode Tidal Volume POC PEEP Blood Gas Notified Whom Blood Gas Notified Time Sodium 135 L Potassium 4.3 Chloride 101 Carbon Dioxide 15.0 L Anion Gap 19 H BUN 21 H Creatinine 1.45 H Estim Creat Clear Calc 55.24 Est GFR (MDRD) Af Amer 64 Est GFR (MDRD) Non-Af 53 L BUN/Creatinine Ratio 14.5 Glucose 325 H Lactic Acid Calcium 8.7 Total Bilirubin 0.30 AST 33 ALT 31 Alkaline Phosphatase 81 Troponin I 0.032 B-Natriuretic Peptide Total Protein 8.2 Albumin 3.8 Globulin 4.4 H Albumin/Globulin Ratio 0.9 Urine Color Urine Clarity Urine pH Ur Specific [place] Urine Protein Urine Glucose (UA) Urine Ketones Urine Occult Blood Urine Nitrite Urine Bilirubin Urine Urobilinogen Ur Leukocyte Esterase Urine RBC Urine WBC Ur Squamous Epith Cells Urine Bacteria Urine Mucus 01/03/19 01/03/19 01/03/19 07:09 07:14 07:30 WBC RBC Hgb Hct MCV MCH MCHC RDW RDW Differential Plt Count MPV Immature Gran % (Auto) Neut % (Auto) Lymph % (Auto) Marion % (Auto) Eos % (Auto) Baso % (Auto) Absolute Neuts (auto) Absolute Lymphs (auto) Total Counted Neutrophils % (Manual) Band Neutrophils % Lymphocytes % (Manual) Monocytes % (Manual) Eosinophils % (Manual) Basophils % (Manual) Metamyelocytes % Diff Path Review Platelet Estimate Polychromasia Anisocytosis PT INR Specimen Type Sample Site pH Bicarbonate Actual POC Total CO2 Base Excess O2 Saturation O2 % ABG pCO2 ABG pO2 Respiration Rate O2 Delivery Device Vent Mode Tidal Volume POC PEEP Blood Gas Notified Whom Blood Gas Notified Time Sodium Potassium Chloride Carbon Dioxide Anion Gap BUN Creatinine Estim Creat Clear Calc Est GFR (MDRD) Af Amer Est GFR (MDRD) Non-Af BUN/Creatinine Ratio Glucose Lactic Acid 10.2 H* Calcium Total Bilirubin AST ALT Alkaline Phosphatase Troponin I B-Natriuretic Peptide 139.4 H Total Protein Albumin Globulin Albumin/Globulin Ratio Urine Color Yellow Urine Clarity Clear Urine pH 6.5 Ur Specific [place] 1.015 Urine Protein 500 H Urine Glucose (UA) 50 H Urine Ketones Negative Urine Occult Blood 25 H Urine Nitrite Negative Urine Bilirubin Negative Urine Urobilinogen Normal Ur Leukocyte Esterase 25 H Urine RBC 0-5 SEEN Urine WBC 0-5 SEEN Ur Squamous Epith Cells 0-5 SEEN Urine Bacteria RARE Urine Mucus 0 SEEN 01/03/19 08:33 WBC RBC Hgb Hct MCV MCH MCHC RDW RDW Differential Plt Count MPV Immature Gran % (Auto) Neut % (Auto) Lymph % (Auto) Marion % (Auto) Eos % (Auto) Baso % (Auto) Absolute Neuts (auto) Absolute Lymphs (auto) Total Counted Neutrophils % (Manual) Band Neutrophils % Lymphocytes % (Manual) Monocytes % (Manual) Eosinophils % (Manual) Basophils % (Manual) Metamyelocytes % Diff Path Review Platelet Estimate Polychromasia Anisocytosis PT INR Specimen Type ART Sample Site R Radial pH 7.17 L* Bicarbonate Actual 18.8 L POC Total CO2 20 Base Excess -10 L O2 Saturation 100 H O2 % 100 ABG pCO2 51.1 H ABG pO2 289 H Respiration Rate 16 O2 Delivery Device Vent Vent Mode A-C Tidal Volume 500 POC PEEP 5 Blood Gas Notified Whom ED Blood Gas Notified Time 840 Sodium Potassium Chloride Carbon Dioxide Anion Gap BUN Creatinine Estim Creat Clear Calc Est GFR (MDRD) Af Amer Est GFR (MDRD) Non-Af BUN/Creatinine Ratio Glucose Lactic Acid Calcium Total Bilirubin AST ALT Alkaline Phosphatase Troponin I B-Natriuretic Peptide Total Protein Albumin Globulin Albumin/Globulin Ratio Urine Color Urine Clarity Urine pH Ur Specific [place] Urine Protein Urine Glucose (UA) Urine Ketones Urine Occult Blood Urine Nitrite Urine Bilirubin Urine Urobilinogen Ur Leukocyte Esterase Urine RBC Urine WBC Ur Squamous Epith Cells Urine Bacteria Urine Mucus Chest x-ray personally reviewed and shows increased patchy infiltrates throughout the lung siddiqi. Assessment/Plan All Active Problems (Last Reviewed 11/08/18 @ 07:43 by Holden Massey MD) Osteomyelitis (Acute) Acute respiratory failure with hypoxia and hypercapnia (Acute) Gram-negative pneumonia (Acute) Severe sepsis (Acute) Respiratory acidosis (Acute) ARIANNE (acute kidney injury) (Acute) 1. Acute hypoxic and hypercapnic respiratory failure Suspect due to suspected gram-negative pneumonia plus his underlying COPD Continue with ventilator with critical care management to assist care Treat the underlying processes 2.Severe sepsis Present on admission 2/2 pneumonia IVF recheck lactate at least part of lactate elevation can be attributed to respiratory failure 3. Suspected gram negative pneumonia Vanc and Zosyn pulm toilet check urinary antigens for strep and legionella check sputum culture 4. Possible AECOPD steroids and BDs 5. ARIANNE suspect prerenal IVF reevaluate 6. CAD/PAD/DM2: complicates care 7. VTE prophylaxis: LMWH Code Visit Inpatient E&M: [id number] Init Hosp L3
--- NOTE | 2019-01-03 10:43 | HP.PCM_ITS ---
Problem List (1) Acute respiratory failure with hypoxia and hypercapnia Status: Acute (2) Gram-negative pneumonia Status: Acute (3) Severe sepsis Status: Acute (4) Respiratory acidosis Status: Acute (5) ARIANNE (acute kidney injury) Status: Acute History of Present Illness Date of Admission: 01/03/19 Chief Complaint: shortness of breath. The patient is a 63 year old M who is currently intubated and sedated so unable provide any history. History obtained through the emergency room physician and documentation. Patient presented with shortness of breath. Apparently, patient woke up with shortness of breath previously had had a cough for about a month. Patient was noted to be 6% on room air with EMS. Patient was placed on a nonrebreather. Given that it appears that the patient was tiring out decision was made in the emergency room to intubate the patient. Patient had a chest x- ray that was concerning for heart failure but clinically patient was not in appearance of heart failure and I was concerned more for pneumonia as patient was just hospitalized here 2 months ago the patient received on vancomycin and Zosyn. [] Past Medical History Medical History: Medical History (Last Updated 01/03/19 @ 10:44 by Bhanu Olmedo DO) CAD (coronary artery disease) I25.10 PAD (peripheral artery disease) I73.9 COPD (chronic obstructive pulmonary disease) J44.9 Diabetes E11.9 HTN (hypertension) I10 Allergies Sulfa (Sulfonamide Antibiotics) Allergy (Verified 07/18/16 16:31) Other Home Medications: Ambulatory Orders Medication Instructions Recorded Aspirin E.C. [Ecotrin] 650 mg PO BID 07/18/16 Acetaminophen [Tylenol] 650 mg PO BID 11/07/18 DiphenhydrAMINE [Benadryl] 50 mg PO BID 11/07/18 Carvedilol 6.25 mg PO BID 01/03/19 Escitalopram Oxalate [Lexapro] 10 mg PO DAILY 01/03/19 Ferrous Sulfate 325 mg PO DAILY 01/03/19 Lisinopril 5 mg PO DAILY 01/03/19 Metformin HCl [Glucophage] 850 mg PO BIDCM 01/03/19 Surgical History: coronary bypass surgery, - - permanent pacemaker with defibrillator ; amputation of last toe of left foot; right wrist surgery; mastoidectomy. left AKA Smoking Status: Never smoker Drugs: Marijuana - *Family History Maternal History Items: Dementia, Heart Disease, Hypertension Paternal History Items: Heart Disease Review of Systems Comment: Unable to obtain as patient is intubated and sedated. VTE Information - Inpt Only VTE Present on Admission: No VTE Mechan Device Prophylaxis: None VTE Pharm Prophylaxis ordered?: Yes Patient Problems: Active and Suspected Problems (Last Reviewed 11/08/18 @ 07:43 by Holden Massey MD) Acute respiratory failure with hypoxia and hypercapnia (Acute) Gram-negative pneumonia (Acute) Severe sepsis (Acute) Respiratory acidosis (Acute) ARIANNE (acute kidney injury) (Acute) - Physical Exam General: - - Intubated and sedated. Afebrile. On a ventilator. HEENT: Atraumatic, Normocephalic Oral: - - ET tube in place. Neck: No Nodes, Thyroid Normal Size and Texture Lungs: Normal air movement, - - Coarse breath sounds bilaterally Cardiovascular: Regular rate, Regular Rhythm, Normal S1, Normal S2, No murmurs Abdomen: Bowel Sounds Present, Soft, Non Tender, Non-Distended, No Hepato- splenomegaly Extremities: No edema, No Calf Tenderness Skin: - - Superficial ulcerations on his toes as well as his legs on the right lower extremity. The stump of the left [id number] amputation is clean and intact. Musculoskeletal: No Tenderness to Palpation of Joints or Extremities, Muscle Wasting Psych/Mental Status: - - Intubated and sedated Vital Signs Temp Pulse Resp BP Pulse Ox 36.6 C 85 20 H 124/80 H 98 01/03/19 10:01 01/03/19 10:01 01/03/19 10:01 01/03/19 10:01 01/03/19 10:01 Oxygen Flow Rate (L/min) 15 Oxygen Delivery Method Mechanical Ventilator Weight: 124.6 kg Body Mass Index (BMI) 39.4 Laboratory Tests Past 24 Hrs 01/03/19 01/03/19 01/03/19 07:09 07:09 07:09 WBC 20.4 H RBC 5.97 Hgb 16.3 Hct 50.6 MCV 84.8 MCH 27.3 MCHC 32.2 RDW 18.8 H RDW Differential 58.6 H Plt Count 301 MPV 9.5 Immature Gran % (Auto) PURSE FRAMER Neut % (Auto) PURSE FRAMER Lymph % (Auto) PURSE FRAMER Ceiba % (Auto) PURSE FRAMER Eos % (Auto) PURSE FRAMER Baso % (Auto) PURSE FRAMER Absolute Neuts (auto) 8.0 H Absolute Lymphs (auto) 9.99 H Total Counted 100 Neutrophils % (Manual) 37 L Band Neutrophils % 2 Lymphocytes % (Manual) 49 H Monocytes % (Manual) 5 Eosinophils % (Manual) 4 Basophils % (Manual) 1 Metamyelocytes % 2 H Diff Path Review May foll Platelet Estimate ADEQUATE Polychromasia 1+ Anisocytosis 1+ PT 13.7 INR 1.1 Specimen Type Sample Site pH Bicarbonate Actual POC Total CO2 Base Excess O2 Saturation O2 % ABG pCO2 ABG pO2 Respiration Rate O2 Delivery Device Vent Mode Tidal Volume POC PEEP Blood Gas Notified Whom Blood Gas Notified Time Sodium 135 L Potassium 4.3 Chloride 101 Carbon Dioxide 15.0 L Anion Gap 19 H BUN 21 H Creatinine 1.45 H Estim Creat Clear Calc 55.24 Est GFR (MDRD) Af Amer 64 Est GFR (MDRD) Non-Af 53 L BUN/Creatinine Ratio 14.5 Glucose 325 H Lactic Acid Calcium 8.7 Total Bilirubin 0.30 AST 33 ALT 31 Alkaline Phosphatase 81 Troponin I 0.032 B-Natriuretic Peptide Total Protein 8.2 Albumin 3.8 Globulin 4.4 H Albumin/Globulin Ratio 0.9 Urine Color Urine Clarity Urine pH Ur Specific Molino Urine Protein Urine Glucose (UA) Urine Ketones Urine Occult Blood Urine Nitrite Urine Bilirubin Urine Urobilinogen Ur Leukocyte Esterase Urine RBC Urine WBC Ur Squamous Epith Cells Urine Bacteria Urine Mucus 01/03/19 01/03/19 01/03/19 07:09 07:14 07:30 WBC RBC Hgb Hct MCV MCH MCHC RDW RDW Differential Plt Count MPV Immature Gran % (Auto) Neut % (Auto) Lymph % (Auto) Ceiba % (Auto) Eos % (Auto) Baso % (Auto) Absolute Neuts (auto) Absolute Lymphs (auto) Total Counted Neutrophils % (Manual) Band Neutrophils % Lymphocytes % (Manual) Monocytes % (Manual) Eosinophils % (Manual) Basophils % (Manual) Metamyelocytes % Diff Path Review Platelet Estimate Polychromasia Anisocytosis PT INR Specimen Type Sample Site pH Bicarbonate Actual POC Total CO2 Base Excess O2 Saturation O2 % ABG pCO2 ABG pO2 Respiration Rate O2 Delivery Device Vent Mode Tidal Volume POC PEEP Blood Gas Notified Whom Blood Gas Notified Time Sodium Potassium Chloride Carbon Dioxide Anion Gap BUN Creatinine Estim Creat Clear Calc Est GFR (MDRD) Af Amer Est GFR (MDRD) Non-Af BUN/Creatinine Ratio Glucose Lactic Acid 10.2 H* Calcium Total Bilirubin AST ALT Alkaline Phosphatase Troponin I B-Natriuretic Peptide 139.4 H Total Protein Albumin Globulin Albumin/Globulin Ratio Urine Color Yellow Urine Clarity Clear Urine pH 6.5 Ur Specific Molino 1.015 Urine Protein 500 H Urine Glucose (UA) 50 H Urine Ketones Negative Urine Occult Blood 25 H Urine Nitrite Negative Urine Bilirubin Negative Urine Urobilinogen Normal Ur Leukocyte Esterase 25 H Urine RBC 0-5 SEEN Urine WBC 0-5 SEEN Ur Squamous Epith Cells 0-5 SEEN Urine Bacteria RARE Urine Mucus 0 SEEN 01/03/19 08:33 WBC RBC Hgb Hct MCV MCH MCHC RDW RDW Differential Plt Count MPV Immature Gran % (Auto) Neut % (Auto) Lymph % (Auto) [place] % (Auto) Eos % (Auto) Baso % (Auto) Absolute Neuts (auto) Absolute Lymphs (auto) Total Counted Neutrophils % (Manual) Band Neutrophils % Lymphocytes % (Manual) Monocytes % (Manual) Eosinophils % (Manual) Basophils % (Manual) Metamyelocytes % Diff Path Review Platelet Estimate Polychromasia Anisocytosis PT INR Specimen Type ART Sample Site R Radial pH 7.17 L* Bicarbonate Actual 18.8 L POC Total CO2 20 Base Excess -10 L O2 Saturation 100 H O2 % 100 ABG pCO2 51.1 H ABG pO2 289 H Respiration Rate 16 O2 Delivery Device Vent Vent Mode A-C Tidal Volume 500 POC PEEP 5 Blood Gas Notified Whom ED Blood Gas Notified Time 840 Sodium Potassium Chloride Carbon Dioxide Anion Gap BUN Creatinine Estim Creat Clear Calc Est GFR (MDRD) Af Amer Est GFR (MDRD) Non-Af BUN/Creatinine Ratio Glucose Lactic Acid Calcium Total Bilirubin AST ALT Alkaline Phosphatase Troponin I B-Natriuretic Peptide Total Protein Albumin Globulin Albumin/Globulin Ratio Urine Color Urine Clarity Urine pH Ur Specific Molino Urine Protein Urine Glucose (UA) Urine Ketones Urine Occult Blood Urine Nitrite Urine Bilirubin Urine Urobilinogen Ur Leukocyte Esterase Urine RBC Urine WBC Ur Squamous Epith Cells Urine Bacteria Urine Mucus Chest x-ray personally reviewed and shows increased patchy infiltrates throughout the lung siddiqi. Assessment/Plan All Active Problems (Last Reviewed 11/08/18 @ 07:43 by Holden Massey MD) Osteomyelitis (Acute) Acute respiratory failure with hypoxia and hypercapnia (Acute) Gram-negative pneumonia (Acute) Severe sepsis (Acute) Respiratory acidosis (Acute) ARIANNE (acute kidney injury) (Acute) 1. Acute hypoxic and hypercapnic respiratory failure * Suspect due to suspected gram-negative pneumonia plus his underlying COPD * Continue with ventilator with critical care management to assist care * Treat the underlying processes 2.Severe sepsis * Present on admission * 2/2 pneumonia * IVF * recheck lactate * at least part of lactate elevation can be attributed to respiratory failure 3. Suspected gram negative pneumonia * Vanc and Zosyn * pulm toilet * check urinary antigens for strep and legionella * check sputum culture 4. Possible AECOPD * steroids and BDs 5. RAIANNE * suspect prerenal * IVF * reevaluate 6. CAD/PAD/DM2: complicates care 7. VTE prophylaxis: LMWH Code Visit Inpatient E&M: 12897 Init Hosp L3
[2019-01-03] MEDS: CHLORHEXIDINE GLUC 2% CLOTH 1 EACH TOWELETTE TOPICAL (11:30)
[2019-01-03 11:31] LABS: Reflex Lactate? Y
[2019-01-03 11:56] LABS: Allen Test POS; Base Excess -6 mmol/L (-2 to +2); Blood Gas Specimen Type ART; FI02 50; Mode A-C; O2 Delivery Device Vent; PEEP 5; PO2 158 mmHG (75-100); RR 16; SITE R Radial; SO2 99 % (95-99); Time Given 1146; Total Carbon Dioxide 22 mmol/L; Vt 450; pCO2 44.1 mmHg (35-45); pH 7.29 (7.35-7.45)
[2019-01-03] MEDS: 0.9% Normal Saline 1,000 ML 100 ML IV (12:00)
--- NOTE | 2019-01-03 12:25 | ECHOCS_ITS ---
Reason For Study: DYSPNEA/SOB Procedure This was a 2D Doppler, Color Flow transthoracic echocardiogram. Patient intubated and laying flat on back. The study was technically difficult. Contrast injection was performed. Exam performed portable in ICU/CCU. Left Ventricle Moderately dilated left ventricle. Severe segmental systolic dysfunction (see wall motion). The estimated ejection fraction is 20 %. Transmitral doppler flow suggestive of impaired relaxation of left ventricle. Anterio-Basal: Hypokinetic. Lateral-Basal: Hypokinetic. Posterior-Basal: Hypokinetic. Infero-Basal: Hypokinetic. Basal inferoseptal: Hypokinetic. Basal anteroseptal: Hypokinetic. Mid-Anterior : Hypokinetic. Mid-Lateral : Hypokinetic. Mid-Posterior: Akinetic. Mid- Inferior: Akinetic. Mid-inferoseptal : Akinetic. Mid-anteroseptal : Akinetic. Anterior Lincoln : Hypokinetic. Inferior Lincoln : Akinetic. Lateral [place] : Hypokinetic. Septal Lincoln : Akinetic. Right Ventricle Normal RV size. Normal systolic function. Atria The left atrium is mildly enlarged. The right atrium is not well visualized. No doppler evidence for ASD. Mitral Valve There is no mitral annular calcification. Normal mitral valve. Trivial mitral valve insufficiency. Tricuspid Valve The tricuspid valve is not well visualized. Aortic Valve Trisinus/trileaflet aortic valve. Mild focal aortic valve thickening. Pulmonic Valve The pulmonic valve is not well visualized. Great Vessels Normal sized aortic root. Pericardium/Pleural No pericardial effusion. Medication Diluted definity 5ml given slow IV push to enhance endocardial definition. MMode/2D Measurements & Calculations LVIDd: 6.5 cm IVSd: 1.2 cm Ao root diam: 3.2 cm LVIDs: 5.4 cm LVPWd: 1.2 cm LA dimension: 3.7 cm FS: 17.0 % LAV(MOD-bp): 41.4 ml LVAd ap4: 39.5 cm2 SV(MOD-sp4): 65.7 ml LAV(MOD-bp) Indexed: 17.3 ml/m2 EDV(MOD-sp4): 162.8 ml LAV(MOD-sp2): 43.9 ml EDV(sp4-el): 171.3 ml LAV(MOD-sp4): 38.2 ml LVAs ap4: 28.5 cm2 ESV(MOD-sp4): 97.1 ml ESV(sp4-el): 100.5 ml EF(MOD-sp4): 40.4 % EF(sp4-el): 41.3 % SV(sp4-el): 70.7 ml LA A4 area: 15.3 cm2 Time Measurements MV dec time: 0.19 sec Doppler Measurements & Calculations MV E max regulo: 54.0 cm/sec Lat Peak E' Regulo: 4.9 cm/sec Med Peak E' Regulo: 3.9 cm/sec MV A max regulo: 79.7 cm/sec E/E' lat: 11.0 E/E' med: 13.7 MV E/A: 0.68 Ao V2 max: 95.3 cm/sec LV V1 max: 76.0 cm/sec PA V2 max: 113.0 cm/sec Ao max P.6 mmHg LV V1 max P.3 mmHg Interpretation Summary The study was technically difficult. Contrast injection was performed. Moderately dilated left ventricle. Severe segmental systolic dysfunction (see wall motion). The estimated ejection fraction is 20 %. Trivial mitral valve insufficiency. Mild focal aortic valve thickening. Transmitral doppler flow suggestive of impaired relaxation of left ventricle Ordering Physician: Bhanu Olmedo Performed By: Bernice Kingsley RDCS
--- NOTE | 2019-01-03 12:25 | RAD_ITS ---
STUDY: X-RAY - ABDOMEN/PELVIS REASON FOR EXAM: Male, 63 years old. Oral gastric tube placement. TECHNIQUE: Single AP view of the abdomen / pelvis. COMPARISON: None. FINDINGS: The orogastric tube is not seen on this examination. Gaseous distention of the stomach. The visualized liver, spleen and kidneys are grossly normal in size and morphology. Normal soft tissue structures. There are diffuse degenerative changes of the visualized lumbar spine. Dextroscoliosis. RAD/Abdomen Single View (Portable) IMPRESSION: Gaseous distention of the stomach. The tip of the orogastric tube is not seen on this examination. Electronically Signed: José Miguel Chao, at 13:02 EDT , Service support ,
[2019-01-03 12:32] LABS: Lactic Acid 3.2 mmol/L (0.4-2.0)
--- NOTE | 2019-01-03 12:42 | RAD_ITS ---
STUDY: X-RAY - ABDOMEN/PELVIS REASON FOR EXAM: Male, 63 years old. Orogastric tube placement. TECHNIQUE: Single AP view of the abdomen / pelvis. COMPARISON: Comparison is made with prior study on the earlier today. FINDINGS: The tip of the orogastric tube is within the body of the stomach. Gaseous distention of the stomach. RAD/Abdomen Single View (Portable) IMPRESSION: The tip of the orogastric tube is within the body of the stomach. Electronically Signed: José Miguel Chao, at 13:10 EDT , Service support ,
--- NOTE | 2019-01-03 13:19 | CON.PCM_ITS ---
Problem List (1) Hx of AKA (above knee amputation) Status: Chronic Qualifiers: Laterality: left Qualified Code(s): Z89.612 - Acquired absence of left leg above knee (2) Osteomyelitis Status: Suspected (3) Acute respiratory failure with hypoxia and hypercapnia Status: Acute (4) Gram-negative pneumonia Status: Acute (5) Severe sepsis Status: Acute (6) Respiratory acidosis Status: Acute (7) ARIANNE (acute kidney injury) Status: Acute Reason for Consult Date of Consultation: 01/03/19 Reason for Consultation: Respiratory failure History of Present Illness: The patient is a 63 year old M, with past medical history listed below, who presented with [facility] - [place], [place] on 01/03/2019 secondary to progressive shortness of breath. Patient reportedly had been having nocturnal cough for over a month after coming home from a longterm. Over the last 2-3 days, patient has had progressive shortness of breath and this morning woke up with extreme shortness of breath. Patient did not report any concomitant fever or chest pain, but does reportedly have a history of COPD. Since family states that the cough was described as loose, but was not making much production. Patient was placed on a nonrebreather and transported to the ER for further evaluation. On arrival to the emergency room, patient was reportedly having respiratory muscle fatigue and decreased mental status. An EKG showed a paced rhythm and patient was noted to have wheezing bilaterally. Patient was intubated using rapid sequence intubation. No complications were reported. Patient was placed on empiric antibiotics, Solu-Medrol, aerosols and transferred to the intensive care unit. Patient reportedly has recently had an amputation of his left leg secondary to osteomyelitis. Patient was in the longterm until approximately 1 month ago per his daughter. Patient has been living at home with his daughter over that period of time. Patient did have the cough described above. Patient carries a diagnosis of COPD, but reportedly he smokes marijuana to help deal with lower extremity pain. Patient reportedly has an extensive cardiac history, but family is unable to provide many details. Patient does have sores on his right lower extremity at various stages of healing, but the family states that this looks better. Family unable to provide additional review of systems. Past Medical History Past Medical History (Chronic Problems): Chronic Problems Hx of AKA (above knee amputation) (Chronic) Medical History: Medical History (Last Updated 01/03/19 @ 10:44 by Bhanu Olmedo DO) CAD (coronary artery disease) I25.10 PAD (peripheral artery disease) I73.9 COPD (chronic obstructive pulmonary disease) J44.9 Diabetes E11.9 HTN (hypertension) I10 Allergies Sulfa (Sulfonamide Antibiotics) Allergy (Verified 07/18/16 16:31) Other Home Medications: Ambulatory Orders Medication Instructions Recorded Aspirin E.C. [Ecotrin] 650 mg PO BID 07/18/16 Acetaminophen [Tylenol] 650 mg PO BID 11/07/18 DiphenhydrAMINE [Benadryl] 50 mg PO BID 11/07/18 Carvedilol 6.25 mg PO BID 01/03/19 Escitalopram Oxalate [Lexapro] 10 mg PO DAILY 01/03/19 Ferrous Sulfate 325 mg PO DAILY 01/03/19 Lisinopril 5 mg PO DAILY 01/03/19 Metformin HCl [Glucophage] 850 mg PO BIDCM 01/03/19 Surgical History: coronary bypass surgery, - - permanent pacemaker with defibrillator ; amputation of last toe of left foot; right wrist surgery; mastoidectomy. left AKA Smoking Status: Former smoker Drugs: Marijuana - *Family History Maternal History Items: Dementia, Heart Disease, Hypertension Paternal History Items: Heart Disease Review of Systems Comment: See HPI Patient Problems: Active and Suspected Problems (Last Updated 01/03/19 @ 10:44 by Bhanu Olmedo DO) Acute respiratory failure with hypoxia and hypercapnia (Acute) Gram-negative pneumonia (Acute) Severe sepsis (Acute) Respiratory acidosis (Acute) ARIANNE (acute kidney injury) (Acute) Objective: Chest x-ray was personally reviewed. Agree with formal interpretation. Patient has no previous PFTs or echocardiogram in the system to review. - Physical Exam General: - - Morbidly obese. Rest -1. Good vent synchrony. HEENT: Atraumatic, PERRLA, EOMI, Normocephalic, - - Large dumont noted. Oral: Moist Mucosa, No Gingival or Mucosal Lesions/ Ulcerations, - - Fair dentition. Neck: Supple, No JVD, No Nodes, Trachea Midline Lungs: No rhonchi, No rales, Diminished, Wheezes, - - Symmetric expansion. No dullness to percussion. Cardiovascular: Regular rate, Regular Rhythm, Normal S1, Normal S2, No murmurs, No rub noted, No Gallop, - - Rhythm on telemetry Abdomen: Bowel Sounds Present, Soft, Non Tender, Non-Distended, Obese Extremities: No clubbing, No cyanosis, No edema, - - Venous stasis changes to lower right extremity. Skin: Ulcer/ Wound - Multiple ulcers of the DIP joints of the lower extremity noted. Surrounded by erythema without induration Musculoskeletal: No Tenderness to Palpation of Joints or Extremities Lymphatic: No Cervical, Supraclavicular, or Inguinal Adenopathy Neurological: Cranial nerves II-XII grossly intact, Neuro grossly intact, Motor Exam 5/5 strength throughout Psych/Mental Status: Flat Affect Vital Signs Temp Pulse Resp BP Pulse Ox 36.8 C 83 16 119/74 100 01/03/19 11:00 01/03/19 11:45 01/03/19 11:45 01/03/19 11:45 01/03/19 11:45 Oxygen Flow Rate (L/min) 15 Oxygen Delivery Method Mechanical Ventilator Weight: 124.6 kg Body Mass Index (BMI) 39.4 Laboratory Tests Past 24 Hrs 01/03/19 01/03/19 01/03/19 07:09 07:09 07:09 WBC 20.4 H RBC 5.97 Hgb 16.3 Hct 50.6 MCV 84.8 MCH 27.3 MCHC 32.2 RDW 18.8 H RDW Differential 58.6 H Plt Count 301 MPV 9.5 Immature Gran % (Auto) [employer] Neut % (Auto) [employer]ANT Lymph % (Auto) [employer] CONSULTANT [place] % (Auto) [employer] CONSULTANT Eos % (Auto) [employer]ANT Baso % (Auto) [employer]ANT Absolute Neuts (auto) 8.0 H Absolute Lymphs (auto) 9.99 H Total Counted 100 Neutrophils % (Manual) 37 L Band Neutrophils % 2 Lymphocytes % (Manual) 49 H Monocytes % (Manual) 5 Eosinophils % (Manual) 4 Basophils % (Manual) 1 Metamyelocytes % 2 H Diff Path Review May foll Platelet Estimate ADEQUATE Polychromasia 1+ Anisocytosis 1+ PT 13.7 INR 1.1 Specimen Type Sample Site pH Bicarbonate Actual POC Total CO2 Base Excess O2 Saturation O2 % ABG pCO2 ABG pO2 Kobe Test Respiration Rate O2 Delivery Device Vent Mode Tidal Volume POC PEEP Blood Gas Notified Whom Blood Gas Notified Time Sodium 135 L Potassium 4.3 Chloride 101 Carbon Dioxide 15.0 L Anion Gap 19 H BUN 21 H Creatinine 1.45 H Estim Creat Clear Calc 55.24 Est GFR (MDRD) Af Amer 64 Est GFR (MDRD) Non-Af 53 L BUN/Creatinine Ratio 14.5 Glucose 325 H Lactic Acid Calcium 8.7 Total Bilirubin 0.30 AST 33 ALT 31 Alkaline Phosphatase 81 Troponin I 0.032 B-Natriuretic Peptide Total Protein 8.2 Albumin 3.8 Globulin 4.4 H Albumin/Globulin Ratio 0.9 Urine Color Urine Clarity Urine pH Ur Specific [place] Urine Protein Urine Glucose (UA) Urine Ketones Urine Occult Blood Urine Nitrite Urine Bilirubin Urine Urobilinogen Ur Leukocyte Esterase Urine RBC Urine WBC Ur Squamous Epith Cells Urine Bacteria Urine Mucus S.aureus Protein A PCR MRSA (PCR) 01/03/19 01/03/19 01/03/19 07:09 07:14 07:30 WBC RBC Hgb Hct MCV MCH MCHC RDW RDW Differential Plt Count MPV Immature Gran % (Auto) Neut % (Auto) Lymph % (Auto) [place] % (Auto) Eos % (Auto) Baso % (Auto) Absolute Neuts (auto) Absolute Lymphs (auto) Total Counted Neutrophils % (Manual) Band Neutrophils % Lymphocytes % (Manual) Monocytes % (Manual) Eosinophils % (Manual) Basophils % (Manual) Metamyelocytes % Diff Path Review Platelet Estimate Polychromasia Anisocytosis PT INR Specimen Type Sample Site pH Bicarbonate Actual POC Total CO2 Base Excess O2 Saturation O2 % ABG pCO2 ABG pO2 Kobe Test Respiration Rate O2 Delivery Device Vent Mode Tidal Volume POC PEEP Blood Gas Notified Whom Blood Gas Notified Time Sodium Potassium Chloride Carbon Dioxide Anion Gap BUN Creatinine Estim Creat Clear Calc Est GFR (MDRD) Af Amer Est GFR (MDRD) Non-Af BUN/Creatinine Ratio Glucose Lactic Acid 10.2 H* Calcium Total Bilirubin AST ALT Alkaline Phosphatase Troponin I B-Natriuretic Peptide 139.4 H Total Protein Albumin Globulin Albumin/Globulin Ratio Urine Color Yellow Urine Clarity Clear Urine pH 6.5 Ur Specific [place] 1.015 Urine Protein 500 H Urine Glucose (UA) 50 H Urine Ketones Negative Urine Occult Blood 25 H Urine Nitrite Negative Urine Bilirubin Negative Urine Urobilinogen Normal Ur Leukocyte Esterase 25 H Urine RBC 0-5 SEEN Urine WBC 0-5 SEEN Ur Squamous Epith Cells 0-5 SEEN Urine Bacteria RARE Urine Mucus 0 SEEN S.aureus Protein A PCR MRSA (PCR) 04/19/19 04/19/19 04/19/19 08:33 10:16 11:47 WBC RBC Hgb Hct MCV MCH MCHC RDW RDW Differential Plt Count MPV Immature Gran % (Auto) Neut % (Auto) Lymph % (Auto) [place] % (Auto) Eos % (Auto) Baso % (Auto) Absolute Neuts (auto) Absolute Lymphs (auto) Total Counted Neutrophils % (Manual) Band Neutrophils % Lymphocytes % (Manual) Monocytes % (Manual) Eosinophils % (Manual) Basophils % (Manual) Metamyelocytes % Diff Path Review Platelet Estimate Polychromasia Anisocytosis PT INR Specimen Type ART ART Sample Site R Radial R Radial pH 7.17 L* 7.29 L Bicarbonate Actual 18.8 L 21.0 L POC Total CO2 20 22 Base Excess -10 L -6 L O2 Saturation 100 H 99 O2 % 100 50 ABG pCO2 51.1 H 44.1 ABG pO2 289 H 158 H Kobe Test POS Respiration Rate 16 16 O2 Delivery Device Vent Vent Vent Mode A-C A-C Tidal Volume 500 450 POC PEEP 5 5 Blood Gas Notified Whom ED MD ICU MD Blood Gas Notified Time 840 1146 Sodium Potassium Chloride Carbon Dioxide Anion Gap BUN Creatinine Estim Creat Clear Calc Est GFR (MDRD) Af Amer Est GFR (MDRD) Non-Af BUN/Creatinine Ratio Glucose Lactic Acid 3.2 H Calcium Total Bilirubin AST ALT Alkaline Phosphatase Troponin I B-Natriuretic Peptide Total Protein Albumin Globulin Albumin/Globulin Ratio Urine Color Urine Clarity Urine pH Ur Specific [place] Urine Protein Urine Glucose (UA) Urine Ketones Urine Occult Blood Urine Nitrite Urine Bilirubin Urine Urobilinogen Ur Leukocyte Esterase Urine RBC Urine WBC Ur Squamous Epith Cells Urine Bacteria Urine Mucus S.aureus Protein A PCR MRSA (PCR) 01/03/19 12:25 WBC RBC Hgb Hct MCV MCH MCHC RDW RDW Differential Plt Count MPV Immature Gran % (Auto) Neut % (Auto) Lymph % (Auto) [place] % (Auto) Eos % (Auto) Baso % (Auto) Absolute Neuts (auto) Absolute Lymphs (auto) Total Counted Neutrophils % (Manual) Band Neutrophils % Lymphocytes % (Manual) Monocytes % (Manual) Eosinophils % (Manual) Basophils % (Manual) Metamyelocytes % Diff Path Review Platelet Estimate Polychromasia Anisocytosis PT INR Specimen Type Sample Site pH Bicarbonate Actual POC Total CO2 Base Excess O2 Saturation O2 % ABG pCO2 ABG pO2 Kobe Test Respiration Rate O2 Delivery Device Vent Mode Tidal Volume POC PEEP Blood Gas Notified Whom Blood Gas Notified Time Sodium Potassium Chloride Carbon Dioxide Anion Gap BUN Creatinine Estim Creat Clear Calc Est GFR (MDRD) Af Amer Est GFR (MDRD) Non-Af BUN/Creatinine Ratio Glucose Lactic Acid Calcium Total Bilirubin AST ALT Alkaline Phosphatase Troponin I B-Natriuretic Peptide Total Protein Albumin Globulin Albumin/Globulin Ratio Urine Color Urine Clarity Urine pH Ur Specific [place] Urine Protein Urine Glucose (UA) Urine Ketones Urine Occult Blood Urine Nitrite Urine Bilirubin Urine Urobilinogen Ur Leukocyte Esterase Urine RBC Urine WBC Ur Squamous Epith Cells Urine Bacteria Urine Mucus S.aureus Protein A PCR Pending MRSA (PCR) Pending Clinical Impression(s) from Imaging Studies Chest X-Ray 01/03/19 07:45 IMPRESSION: An endotracheal tube is in situ and the tip is at 2.6 sinus proximal to the shabbir. CHF. Electronically Signed: José Miguel Jeremie, at 8:53 EDT , Service support , Assessment/Plan Active and Suspected Problems (Last Updated 01/03/19 @ 10:44 by Bhanu Olmedo DO) Acute respiratory failure with hypoxia and hypercapnia (Acute) Gram-negative pneumonia (Acute) Severe sepsis (Acute) Respiratory acidosis (Acute) ARIANNE (acute kidney injury) (Acute) RECOMMENDATIONS: 1. Await echocardiogram 2. Agree with empiric antibiotics, steroids and bronchodilators 3. Continue on current vent settings with permissive hypercapnia 4. Spontaneous breathing and awakening trials per protocol IMPRESSIONS: 1. Acute combined respiratory failure Unclear etiology at this time. Patient does have an infiltrate on chest x-ray and leukocytosis, so pneumonia would be suspected. Patient does have some lower extremity superficial wounds. Patient had an elevated lactate on presentation, but part of this may be secondary to hypoxemia. Unclear if patient truly has a history of COPD as no PFTs are available for review. Empiric antibiotics, bronchodilators and steroids would be appropriate. Cultures are currently pending. Other possible etiology would be congestive heart failure. Patient does have a heart history as demonstrated by his pacemaker, but echocardiogram has been ordered. 2. Severe sepsis Possible pneumonia as a source. Patient does have a leukocytosis and tachypnea on presentation. This may also be secondary to stress response from chronic hypoxia as patient was found saturating 60% by EMS. Patient has received his fluid boluses. We will continue to monitor closely for blood pressure issues. Patient may require pressor agents. Cultures are currently pending. Urinary antigen studies are pending. 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 Zosyn should be sufficient if MRSA swab is negative. 3. Acute kidney injury Anticipate prerenal etiology. Patient has received fluids. We will continue to monitor. No indication for renal replacement therapy at this time. 4. Morbid obesity/coronary artery disease/peripheral artery disease/diabetes mellitus Complicates care, management, recovery and prognosis. We will need to watch blood sugars closely given steroid therapy. Likely initiate tube feeds tomorrow if unable to extubate. TIME: 45 minutes critical care time spent addressing patient's acute combined respiratory failure, possible sepsis, acute kidney injury, review of all data and collaboration with care team (11:45 AM to 1:15 PM) Code Visit 9xxxx: [id number] Critical care first hour
[2019-01-03 13:44] LABS: M R Staph aureus DNA By PCR Negative (Negative); Probe Check PASS; Specimen Processing Control PASS; Staph aureus DNA By PCR NEGATIVE (Negative)
--- NOTE | 2019-01-03 14:17 | CHAPLAIN ---
Type of Pastoral Visit _x__ Initial Visit ___ Follow-up Visit ___ On-call Visit ___ General Patient Visit ___ Spiritual Assessment ___ Family Conference ___ Bereavement ___ Rapid Response ___ Code Blue ___ Other (describe below) Pastoral Care Referral From ___ Patient ___ Family ___ Nurse ___ Physician ___ Enamel Sprayer ___ Band Instrument Maker _x__ Other (describe below) Sacrament/Intervention ___ Active listening ___ Anointing ___ Mandaen ___ Bereavement ___ Communion ___ Carly exploration ___ ___ Life review _x__ Prayer ___ Reconciliation ___ Sacrament of Sick _x__ Supportive presence ___ Wedding ___ Other (describe below) Pastoral Comments RN states that a visit and prayer would be fine but that pt is no alert at this time; found pt is this state and offered prayer and wrote a card of support
[2019-01-03] MEDS: Chlorhexidine 15 ML PO ×2 (14:30→22:13)
[2019-01-03] MEDS: Insulin Lispro 100 UNIT/ML INSULN.PEN SQ ×3 (15:14→22:12)
[2019-01-03 15:16] LABS: Bedside Glucose 226 mg/dL (70-110)
[2019-01-03 17:46] LABS: Bedside Glucose 221 mg/dL (70-110)
[2019-01-03] MEDS: Carvedilol 6.25 MG Tablet GT (22:13)
[2019-01-03] MEDS: Famotidine 20 MG Tablet PO (22:15)
[2019-01-03 22:35] LABS: Bedside Glucose 218 mg/dL (70-110)
[2019-01-04] VITALS (40 sets, daily range): BP systolic 102–201; BP diastolic 57–90; PULSE 60–114; RESP 14–25; TEMP 37–37.8; O2SAT 30–100
[2019-01-04] MEDS: Propofol 10MG/Ml 1,000 MG/100 ML Bottle 7.476 MG CONT INF ×2 (01:56→05:49)
[2019-01-04 05:21] LABS: Absolute Lymphocyte Count 0.76 X10^3/ul (0.83-4.51); Absolute Neutrophil Count 12.5 X10^3/uL (2.0-7.7); Basophil# 0.01 X10^3/uL; Basophil% 0.1 % (0-1); Hematocrit 45.7 % (40-54); Lymphocyte # 0.76 X10^3/ul (4.0); Lymphocyte % 5.5 % (19-41); Mean Corp Hgb Conc 32.8 g/gl (32-36); Mean Corpuscular Hgb 26.3 pg (27.0-32.0); Mean Platelet Vol. 9.4 fl (6.2-12.0); Monocyte# 0.47 X10^3/uL; Monocyte% 3.4 % (0-10); Neutrophil % 90.7 % (47-70); Platelet Count 230 K/mm3 (150-450); RBC Distribution Width CV 19.6 % (11.6-14.6); RBC Distribution Width SD 56.2 fl (35.1-43.9); Red Blood Count 5.71 M/mm3 (4.6-6.2); White Blood Count 13.8 K/mm3 (4.4-11.0)
[2019-01-04 05:22] LABS: POSITIVE COUNT NO; POSITIVE DIFFERENTIAL NO; POSITIVE MORPHOLOGY NO
[2019-01-04 05:35] LABS: Anion Gap 9 (5-15); BUN 19 mg/dL (7-18); BUN/Creat Ratio 17.6 RATIO (10-20); Calcium,Total 8.1 mg/dL (8.5-10.1); Chloride 105 mmol/L (98-107); Creatinine, Serum 1.08 mg/dL (0.70-1.30); EST Glomerular Filtration Rate 74 mL/min (>60); Est Glom Filt Rate - Afr Amer 89 mL/min (>60); Estimated Creatinine Clearance 74.16 ml/min; Glucose 232 mg/dL (74-106); Potassium 4.2 mmol/L (3.5-5.1); Sodium Level 138 mmol/L (136-145)
[2019-01-04] MEDS: 0.9% Normal Saline 1,000 ML 100 ML IV (05:48)
[2019-01-04] MEDS: Insulin Lispro 100 UNIT/ML INSULN.PEN SQ ×4 (05:50→23:23)
[2019-01-04 06:01] LABS: Bedside Glucose 229 mg/dL (70-110)
[2019-01-04] MEDS: Ipratropium/Albuterol Sulfate 3 ML AMPUL.NEB INHALATION ×4 (06:46→19:10)
--- NOTE | 2019-01-04 07:20 | PCM.PN.INT ---
Subjective: Patient did okay overnight. Blood pressure is improved compared to previous. Patient noted to become significantly tachycardic and hypoxic during spontaneous awakening trial. Patient has not been able to tolerate spontaneous breathing trials. Patient was attempted a second time, but same response. No bleeding had been noted overnight. Patient did have an elevation in temperature. Urine output has remained stable. Objective: Echocardiogram shows an EF of 20% with moderately dilated LV and focal wall motion abnormalities. Diastolic dysfunction is appreciated. Unable to quantify pulmonary artery pressures. General: Alert, Cooperative, No apparent distress, - - RASS 0. Good vent synchrony while on sedation. HEENT: Atraumatic, PERRLA, EOMI, Normocephalic, - - No scleral icterus or injection noted. Oral: Moist Mucosa, No Gingival or Mucosal Lesions/ Ulcerations Neck: Supple, No Nodes, Trachea Midline, - - JVD difficult to assess secondary to body habitus Lungs: No rhonchi, No rales, Diminished, Wheezes, - - Symmetric expansion. No dullness to percussion. Cardiovascular: Regular rate, Regular Rhythm, Normal S1, Normal S2, No murmurs, No rub noted, No Gallop, - - Paced rhythm on telemetry Abdomen: Bowel Sounds Present, Soft, Non Tender, Non-Distended, Obese Extremities: No clubbing, No cyanosis, Edema - Trace right lower extremity Skin: - - No significant change compared to previous Musculoskeletal: No Tenderness to Palpation of Joints or Extremities Lymphatic: No Cervical, Supraclavicular, or Inguinal Adenopathy Neurological: Cranial nerves II-XII grossly intact, Neuro grossly intact, Motor Exam 5/5 strength throughout Psych/Mental Status: Normal Affect, Appropriate Vital Signs Temp Pulse Resp BP Pulse Ox 37.0 C 92 21 H 147/88 H 30 01/04/19 04:00 01/04/19 06:46 01/04/19 06:46 01/04/19 06:00 01/04/19 06:00 Oxygen Flow Rate (L/min) 15 Oxygen Delivery Method Mechanical Ventilator Weight: 121.8 kg Body Mass Index (BMI) 39.9 Intake and Output for Last 24 Hours 01/02/19 01/03/19 01/04/19 23:59 23:59 23:59 Intake Total 1330.1 / 1330.1 601 / 601 Output Total 1225 / 1225 300 / 300 Balance 105.1 / 105.1 301 / 301 Labs (Last 48 Hours) 01/03/19 01/03/19 01/03/19 07:09 07:09 07:09 WBC 20.4 H RBC 5.97 Hgb 16.3 Hct 50.6 MCV 84.8 MCH 27.3 MCHC 32.2 RDW 18.8 H RDW Differential 58.6 H Plt Count 301 MPV 9.5 Immature Gran % (Auto) [employer] Neut % (Auto) [employer] Lymph % (Auto) [employer] [place] % (Auto) [employer] Eos % (Auto) [employer] Baso % (Auto) [employer] Absolute Neuts (auto) 8.0 H Absolute Lymphs (auto) 9.99 H Total Counted 100 Neutrophils % (Manual) 37 L Band Neutrophils % 2 Lymphocytes % (Manual) 49 H Monocytes % (Manual) 5 Eosinophils % (Manual) 4 Basophils % (Manual) 1 Metamyelocytes % 2 H Diff Path Review May foll Platelet Estimate ADEQUATE Polychromasia 1+ Anisocytosis 1+ PT 13.7 INR 1.1 Specimen Type Sample Site pH Bicarbonate Actual POC Total CO2 Base Excess O2 Saturation O2 % ABG pCO2 ABG pO2 Kobe Test Respiration Rate O2 Delivery Device Vent Mode Tidal Volume POC PEEP Blood Gas Notified Whom Blood Gas Notified Time Sodium 135 L Potassium 4.3 Chloride 101 Carbon Dioxide 15.0 L Anion Gap 19 H BUN 21 H Creatinine 1.45 H Estim Creat Clear Calc 55.24 Est GFR (MDRD) Af Amer 64 Est GFR (MDRD) Non-Af 53 L BUN/Creatinine Ratio 14.5 Glucose 325 H Lactic Acid Calcium 8.7 Total Bilirubin 0.30 AST 33 ALT 31 Alkaline Phosphatase 81 Troponin I 0.032 B-Natriuretic Peptide Total Protein 8.2 Albumin 3.8 Globulin 4.4 H Albumin/Globulin Ratio 0.9 Urine Color Urine Clarity Urine pH Ur Specific Friend Urine Protein Urine Glucose (UA) Urine Ketones Urine Occult Blood Urine Nitrite Urine Bilirubin Urine Urobilinogen Ur Leukocyte Esterase Urine RBC Urine WBC Ur Squamous Epith Cells Urine Bacteria Urine Mucus S.aureus Protein A PCR MRSA (PCR) POC Glucose 01/03/19 01/03/19 01/03/19 07:09 07:14 07:30 WBC RBC Hgb Hct MCV MCH MCHC RDW RDW Differential Plt Count MPV Immature Gran % (Auto) Neut % (Auto) Lymph % (Auto) [place] % (Auto) Eos % (Auto) Baso % (Auto) Absolute Neuts (auto) Absolute Lymphs (auto) Total Counted Neutrophils % (Manual) Band Neutrophils % Lymphocytes % (Manual) Monocytes % (Manual) Eosinophils % (Manual) Basophils % (Manual) Metamyelocytes % Diff Path Review Platelet Estimate Polychromasia Anisocytosis PT INR Specimen Type Sample Site pH Bicarbonate Actual POC Total CO2 Base Excess O2 Saturation O2 % ABG pCO2 ABG pO2 Kobe Test Respiration Rate O2 Delivery Device Vent Mode Tidal Volume POC PEEP Blood Gas Notified Whom Blood Gas Notified Time Sodium Potassium Chloride Carbon Dioxide Anion Gap BUN Creatinine Estim Creat Clear Calc Est GFR (MDRD) Af Amer Est GFR (MDRD) Non-Af BUN/Creatinine Ratio Glucose Lactic Acid 10.2 H* Calcium Total Bilirubin AST ALT Alkaline Phosphatase Troponin I B-Natriuretic Peptide 139.4 H Total Protein Albumin Globulin Albumin/Globulin Ratio Urine Color Yellow Urine Clarity Clear Urine pH 6.5 Ur Specific Friend 1.015 Urine Protein 500 H Urine Glucose (UA) 50 H Urine Ketones Negative Urine Occult Blood 25 H Urine Nitrite Negative Urine Bilirubin Negative Urine Urobilinogen Normal Ur Leukocyte Esterase 25 H Urine RBC 0-5 SEEN Urine WBC 0-5 SEEN Ur Squamous Epith Cells 0-5 SEEN Urine Bacteria RARE Urine Mucus 0 SEEN S.aureus Protein A PCR MRSA (PCR) POC Glucose 01/03/19 01/03/19 01/03/19 08:33 10:16 11:47 WBC RBC Hgb Hct MCV MCH MCHC RDW RDW Differential Plt Count MPV Immature Gran % (Auto) Neut % (Auto) Lymph % (Auto) [place] % (Auto) Eos % (Auto) Baso % (Auto) Absolute Neuts (auto) Absolute Lymphs (auto) Total Counted Neutrophils % (Manual) Band Neutrophils % Lymphocytes % (Manual) Monocytes % (Manual) Eosinophils % (Manual) Basophils % (Manual) Metamyelocytes % Diff Path Review Platelet Estimate Polychromasia Anisocytosis PT INR Specimen Type ART ART Sample Site R Radial R Radial pH 7.17 L* 7.29 L Bicarbonate Actual 18.8 L 21.0 L POC Total CO2 20 22 Base Excess -10 L -6 L O2 Saturation 100 H 99 O2 % 100 50 ABG pCO2 51.1 H 44.1 ABG pO2 289 H 158 H Kobe Test POS Respiration Rate 16 16 O2 Delivery Device Vent Vent Vent Mode A-C A-C Tidal Volume 500 450 POC PEEP 5 5 Blood Gas Notified Whom ED ICU Blood Gas Notified Time 840 1146 Sodium Potassium Chloride Carbon Dioxide Anion Gap BUN Creatinine Estim Creat Clear Calc Est GFR (MDRD) Af Amer Est GFR (MDRD) Non-Af BUN/Creatinine Ratio Glucose Lactic Acid 3.2 H Calcium Total Bilirubin AST ALT Alkaline Phosphatase Troponin I B-Natriuretic Peptide Total Protein Albumin Globulin Albumin/Globulin Ratio Urine Color Urine Clarity Urine pH Ur Specific Friend Urine Protein Urine Glucose (UA) Urine Ketones Urine Occult Blood Urine Nitrite Urine Bilirubin Urine Urobilinogen Ur Leukocyte Esterase Urine RBC Urine WBC Ur Squamous Epith Cells Urine Bacteria Urine Mucus S.aureus Protein A PCR MRSA (PCR) POC Glucose 01/03/19 01/03/19 01/03/19 12:25 15:05 17:40 WBC RBC Hgb Hct MCV MCH MCHC RDW RDW Differential Plt Count MPV Immature Gran % (Auto) Neut % (Auto) Lymph % (Auto) [place] % (Auto) Eos % (Auto) Baso % (Auto) Absolute Neuts (auto) Absolute Lymphs (auto) Total Counted Neutrophils % (Manual) Band Neutrophils % Lymphocytes % (Manual) Monocytes % (Manual) Eosinophils % (Manual) Basophils % (Manual) Metamyelocytes % Diff Path Review Platelet Estimate Polychromasia Anisocytosis PT INR Specimen Type Sample Site pH Bicarbonate Actual POC Total CO2 Base Excess O2 Saturation O2 % ABG pCO2 ABG pO2 Kobe Test Respiration Rate O2 Delivery Device Vent Mode Tidal Volume POC PEEP Blood Gas Notified Whom Blood Gas Notified Time Sodium Potassium Chloride Carbon Dioxide Anion Gap BUN Creatinine Estim Creat Clear Calc Est GFR (MDRD) Af Amer Est GFR (MDRD) Non-Af BUN/Creatinine Ratio Glucose Lactic Acid Calcium Total Bilirubin AST ALT Alkaline Phosphatase Troponin I B-Natriuretic Peptide Total Protein Albumin Globulin Albumin/Globulin Ratio Urine Color Urine Clarity Urine pH Ur Specific Friend Urine Protein Urine Glucose (UA) Urine Ketones Urine Occult Blood Urine Nitrite Urine Bilirubin Urine Urobilinogen Ur Leukocyte Esterase Urine RBC Urine WBC Ur Squamous Epith Cells Urine Bacteria Urine Mucus S.aureus Protein A PCR NEGATIVE MRSA (PCR) Negative POC Glucose 226 H 221 H 01/03/19 01/04/19 01/04/19 22:11 05:10 05:10 WBC 13.8 H RBC 5.71 Hgb 15.0 Hct 45.7 MCV 80.0 MCH 26.3 L MCHC 32.8 RDW 19.6 H RDW Differential 56.2 H Plt Count 230 MPV 9.4 Immature Gran % (Auto) 0.300 Neut % (Auto) 90.7 H Lymph % (Auto) 5.5 L [place] % (Auto) 3.4 Eos % (Auto) 0.0 Baso % (Auto) 0.1 Absolute Neuts (auto) 12.5 H Absolute Lymphs (auto) 0.76 L Total Counted Not Reportable Neutrophils % (Manual) Band Neutrophils % Lymphocytes % (Manual) Monocytes % (Manual) Eosinophils % (Manual) Basophils % (Manual) Metamyelocytes % Diff Path Review Platelet Estimate Polychromasia Anisocytosis PT INR Specimen Type Sample Site pH Bicarbonate Actual POC Total CO2 Base Excess O2 Saturation O2 % ABG pCO2 ABG pO2 Kobe Test Respiration Rate O2 Delivery Device Vent Mode Tidal Volume POC PEEP Blood Gas Notified Whom Blood Gas Notified Time Sodium 138 Potassium 4.2 Chloride 105 Carbon Dioxide 24.0 Anion Gap 9 BUN 19 H Creatinine 1.08 Estim Creat Clear Calc 74.16 Est GFR (MDRD) Af Amer 89 Est GFR (MDRD) Non-Af 74 BUN/Creatinine Ratio 17.6 Glucose 232 H Lactic Acid Calcium 8.1 L Total Bilirubin AST ALT Alkaline Phosphatase Troponin I B-Natriuretic Peptide Total Protein Albumin Globulin Albumin/Globulin Ratio Urine Color Urine Clarity Urine pH Ur Specific Friend Urine Protein Urine Glucose (UA) Urine Ketones Urine Occult Blood Urine Nitrite Urine Bilirubin Urine Urobilinogen Ur Leukocyte Esterase Urine RBC Urine WBC Ur Squamous Epith Cells Urine Bacteria Urine Mucus S.aureus Protein A PCR MRSA (PCR) POC Glucose 218 H 01/04/19 05:42 WBC RBC Hgb Hct MCV MCH MCHC RDW RDW Differential Plt Count MPV Immature Gran % (Auto) Neut % (Auto) Lymph % (Auto) [place] % (Auto) Eos % (Auto) Baso % (Auto) Absolute Neuts (auto) Absolute Lymphs (auto) Total Counted Neutrophils % (Manual) Band Neutrophils % Lymphocytes % (Manual) Monocytes % (Manual) Eosinophils % (Manual) Basophils % (Manual) Metamyelocytes % Diff Path Review Platelet Estimate Polychromasia Anisocytosis PT INR Specimen Type Sample Site pH Bicarbonate Actual POC Total CO2 Base Excess O2 Saturation O2 % ABG pCO2 ABG pO2 Kobe Test Respiration Rate O2 Delivery Device Vent Mode Tidal Volume POC PEEP Blood Gas Notified Whom Blood Gas Notified Time Sodium Potassium Chloride Carbon Dioxide Anion Gap BUN Creatinine Estim Creat Clear Calc Est GFR (MDRD) Af Amer Est GFR (MDRD) Non-Af BUN/Creatinine Ratio Glucose Lactic Acid Calcium Total Bilirubin AST ALT Alkaline Phosphatase Troponin I B-Natriuretic Peptide Total Protein Albumin Globulin Albumin/Globulin Ratio Urine Color Urine Clarity Urine pH Ur Specific Friend Urine Protein Urine Glucose (UA) Urine Ketones Urine Occult Blood Urine Nitrite Urine Bilirubin Urine Urobilinogen Ur Leukocyte Esterase Urine RBC Urine WBC Ur Squamous Epith Cells Urine Bacteria Urine Mucus S.aureus Protein A PCR MRSA (PCR) POC Glucose 229 H Microbiology 01/03/19 12:55 Urine Catheter - Perez Streptococcus pneumoniae Antigen (M - Final 01/03/19 12:55 Urine Catheter - Perez Legionella Antigen - Final Clinical Impression(s) from Imaging Studies Chest X-Ray 01/03/19 07:45 IMPRESSION: An endotracheal tube is in situ and the tip is at 2.6 sinus proximal to the shabbir. CHF. Electronically Signed: José Miguel Chao, at 8:53 EDT , Service support , KUB X-Ray 01/03/19 12:25 IMPRESSION: Gaseous distention of the stomach. The tip of the orogastric tube is not seen on this examination. Electronically Signed: José Miguel Chao, at 13:02 EDT , Service support , KUB X-Ray 01/03/19 12:42 IMPRESSION: The tip of the orogastric tube is within the body of the stomach. Electronically Signed: José Miguel Chao, at 13:10 EDT , Service support , Medical Necessity - Tobacco Use Smoking Status: Former smoker Assessment/Plan All Active Problems (Last Updated 01/03/19 @ 10:44 by Bhanu Olmedo DO) Acute respiratory failure with hypoxia and hypercapnia (Acute) Gram-negative pneumonia (Acute) Severe sepsis (Acute) Respiratory acidosis (Acute) ARIANNE (acute kidney injury) (Acute) RECOMMENDATIONS: 1. Transition to Precedex sedation 2. Agree with empiric antibiotics, steroids and bronchodilators 3. Continue on current vent settings with permissive hypercapnia 4. Spontaneous breathing and awakening trials per protocol 5. Okay to initiate tube feeds IMPRESSIONS: 1. Acute combined respiratory failure Unclear etiology at this time. Patient does have an infiltrate on chest x-ray and leukocytosis, so pneumonia would be suspected. Patient does have some lower extremity superficial wounds. Patient had an elevated lactate on presentation, but part of this may be secondary to hypoxemia. Unclear if patient truly has a history of COPD as no PFTs are available for review. Empiric antibiotics, bronchodilators and steroids would be appropriate. Cultures are currently pending. Other possible etiology would be congestive heart failure and echocardiogram shows an EF of 20%. Blood pressure has remained stable. Possibly add diuretic therapy tomorrow if unable to pass spontaneous breathing trial. 2. Severe sepsis Possible pneumonia as a source. Patient does have a leukocytosis and tachypnea on presentation. This may also be secondary to stress response from chronic hypoxia as patient was found saturating 60% by EMS. Patient has received his fluid boluses. We will continue to monitor closely for blood pressure issues. Cultures are currently pending. Urinary antigen studies are pending. 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 Zosyn should be sufficient since MRSA swab is negative. 3. Acute kidney injury Resolved. Anticipate prerenal etiology. Patient has received fluids. We will continue to monitor. No indication for renal replacement therapy at this time. 4. Morbid obesity/coronary artery disease/peripheral artery disease/diabetes mellitus Complicates care, management, recovery and prognosis. We will need to watch blood sugars closely given steroid therapy. Likely initiate tube feeds tomorrow if unable to extubate. TIME: 33 minutes critical care time spent addressing patient's acute combined respiratory failure, possible sepsis, acute kidney injury, review of all data and collaboration with care team (6:30 AM to 7:30 AM) Code Visit [id number]: [id number] Critical care first hour
--- NOTE | 2019-01-04 07:25 | PN_ITS ---
Subjective: Patient did okay overnight. Blood pressure is improved compared to previous. Patient noted to become significantly tachycardic and hypoxic during spontaneous awakening trial. Patient has not been able to tolerate spontaneous breathing trials. Patient was attempted a second time, but same response. No bleeding had been noted overnight. Patient did have an elevation in temperature. Urine output has remained stable. Objective: Echocardiogram shows an EF of 20% with moderately dilated LV and focal wall motion abnormalities. Diastolic dysfunction is appreciated. Unable to quantify pulmonary artery pressures. General: Alert, Cooperative, No apparent distress, - - RASS 0. Good vent synchrony while on sedation. HEENT: Atraumatic, PERRLA, EOMI, Normocephalic, - - No scleral icterus or injection noted. Oral: Moist Mucosa, No Gingival or Mucosal Lesions/ Ulcerations Neck: Supple, No Nodes, Trachea Midline, - - JVD difficult to assess secondary to body habitus Lungs: No rhonchi, No rales, Diminished, Wheezes, - - Symmetric expansion. No dullness to percussion. Cardiovascular: Regular rate, Regular Rhythm, Normal S1, Normal S2, No murmurs, No rub noted, No Gallop, - - Paced rhythm on telemetry Abdomen: Bowel Sounds Present, Soft, Non Tender, Non-Distended, Obese Extremities: No clubbing, No cyanosis, Edema - Trace right lower extremity Skin: - - No significant change compared to previous Musculoskeletal: No Tenderness to Palpation of Joints or Extremities Lymphatic: No Cervical, Supraclavicular, or Inguinal Adenopathy Neurological: Cranial nerves II-XII grossly intact, Neuro grossly intact, Motor Exam 5/5 strength throughout Psych/Mental Status: Normal Affect, Appropriate Vital Signs Temp Pulse Resp BP Pulse Ox 37.0 C 92 21 H 147/88 H 30 01/04/19 04:00 01/04/19 06:46 01/04/19 06:46 01/04/19 06:00 01/04/19 06:00 Oxygen Flow Rate (L/min) 15 Oxygen Delivery Method Mechanical Ventilator Weight: 121.8 kg Body Mass Index (BMI) 39.9 Intake and Output for Last 24 Hours 01/02/19 01/03/19 01/04/19 23:59 23:59 23:59 Intake Total 1330.1 / 1330.1 601 / 601 Output Total 1225 / 1225 300 / 300 Balance 105.1 / 105.1 301 / 301 Labs (Last 48 Hours) 01/03/19 01/03/19 01/03/19 07:09 07:09 07:09 WBC 20.4 H RBC 5.97 Hgb 16.3 Hct 50.6 MCV 84.8 MCH 27.3 MCHC 32.2 RDW 18.8 H RDW Differential 58.6 H Plt Count 301 MPV 9.5 Immature Gran % (Auto) JOB COACH Neut % (Auto) JOB COACH Lymph % (Auto) JOB COACH Kimball % (Auto) JOB COACH Eos % (Auto) JOB COACH Baso % (Auto) JOB COACH Absolute Neuts (auto) 8.0 H Absolute Lymphs (auto) 9.99 H Total Counted 100 Neutrophils % (Manual) 37 L Band Neutrophils % 2 Lymphocytes % (Manual) 49 H Monocytes % (Manual) 5 Eosinophils % (Manual) 4 Basophils % (Manual) 1 Metamyelocytes % 2 H Diff Path Review May foll Platelet Estimate ADEQUATE Polychromasia 1+ Anisocytosis 1+ PT 13.7 INR 1.1 Specimen Type Sample Site pH Bicarbonate Actual POC Total CO2 Base Excess O2 Saturation O2 % ABG pCO2 ABG pO2 Kobe Test Respiration Rate O2 Delivery Device Vent Mode Tidal Volume POC PEEP Blood Gas Notified Whom Blood Gas Notified Time Sodium 135 L Potassium 4.3 Chloride 101 Carbon Dioxide 15.0 L Anion Gap 19 H BUN 21 H Creatinine 1.45 H Estim Creat Clear Calc 55.24 Est GFR (MDRD) Af Amer 64 Est GFR (MDRD) Non-Af 53 L BUN/Creatinine Ratio 14.5 Glucose 325 H Lactic Acid Calcium 8.7 Total Bilirubin 0.30 AST 33 ALT 31 Alkaline Phosphatase 81 Troponin I 0.032 B-Natriuretic Peptide Total Protein 8.2 Albumin 3.8 Globulin 4.4 H Albumin/Globulin Ratio 0.9 Urine Color Urine Clarity Urine pH Ur Specific [place] Urine Protein Urine Glucose (UA) Urine Ketones Urine Occult Blood Urine Nitrite Urine Bilirubin Urine Urobilinogen Ur Leukocyte Esterase Urine RBC Urine WBC Ur Squamous Epith Cells Urine Bacteria Urine Mucus S.aureus Protein A PCR MRSA (PCR) POC Glucose 01/03/19 01/03/19 01/03/19 07:09 07:14 07:30 WBC RBC Hgb Hct MCV MCH MCHC RDW RDW Differential Plt Count MPV Immature Gran % (Auto) Neut % (Auto) Lymph % (Auto) Kimball % (Auto) Eos % (Auto) Baso % (Auto) Absolute Neuts (auto) Absolute Lymphs (auto) Total Counted Neutrophils % (Manual) Band Neutrophils % Lymphocytes % (Manual) Monocytes % (Manual) Eosinophils % (Manual) Basophils % (Manual) Metamyelocytes % Diff Path Review Platelet Estimate Polychromasia Anisocytosis PT INR Specimen Type Sample Site pH Bicarbonate Actual POC Total CO2 Base Excess O2 Saturation O2 % ABG pCO2 ABG pO2 Kobe Test Respiration Rate O2 Delivery Device Vent Mode Tidal Volume POC PEEP Blood Gas Notified Whom Blood Gas Notified Time Sodium Potassium Chloride Carbon Dioxide Anion Gap BUN Creatinine Estim Creat Clear Calc Est GFR (MDRD) Af Amer Est GFR (MDRD) Non-Af BUN/Creatinine Ratio Glucose Lactic Acid 10.2 H* Calcium Total Bilirubin AST ALT Alkaline Phosphatase Troponin I B-Natriuretic Peptide 139.4 H Total Protein Albumin Globulin Albumin/Globulin Ratio Urine Color Yellow Urine Clarity Clear Urine pH 6.5 Ur Specific [place] 1.015 Urine Protein 500 H Urine Glucose (UA) 50 H Urine Ketones Negative Urine Occult Blood 25 H Urine Nitrite Negative Urine Bilirubin Negative Urine Urobilinogen Normal Ur Leukocyte Esterase 25 H Urine RBC 0-5 SEEN Urine WBC 0-5 SEEN Ur Squamous Epith Cells 0-5 SEEN Urine Bacteria RARE Urine Mucus 0 SEEN S.aureus Protein A PCR MRSA (PCR) POC Glucose 01/03/19 01/03/19 01/03/19 08:33 10:16 11:47 WBC RBC Hgb Hct MCV MCH MCHC RDW RDW Differential Plt Count MPV Immature Gran % (Auto) Neut % (Auto) Lymph % (Auto) Kimball % (Auto) Eos % (Auto) Baso % (Auto) Absolute Neuts (auto) Absolute Lymphs (auto) Total Counted Neutrophils % (Manual) Band Neutrophils % Lymphocytes % (Manual) Monocytes % (Manual) Eosinophils % (Manual) Basophils % (Manual) Metamyelocytes % Diff Path Review Platelet Estimate Polychromasia Anisocytosis PT INR Specimen Type ART ART Sample Site R Radial R Radial pH 7.17 L* 7.29 L Bicarbonate Actual 18.8 L 21.0 L POC Total CO2 20 22 Base Excess -10 L -6 L O2 Saturation 100 H 99 O2 % 100 50 ABG pCO2 51.1 H 44.1 ABG pO2 289 H 158 H Kobe Test POS Respiration Rate 16 16 O2 Delivery Device Vent Vent Vent Mode A-C A-C Tidal Volume 500 450 POC PEEP 5 5 Blood Gas Notified Whom ED ICU Blood Gas Notified Time 840 1146 Sodium Potassium Chloride Carbon Dioxide Anion Gap BUN Creatinine Estim Creat Clear Calc Est GFR (MDRD) Af Amer Est GFR (MDRD) Non-Af BUN/Creatinine Ratio Glucose Lactic Acid 3.2 H Calcium Total Bilirubin AST ALT Alkaline Phosphatase Troponin I B-Natriuretic Peptide Total Protein Albumin Globulin Albumin/Globulin Ratio Urine Color Urine Clarity Urine pH Ur Specific [place] Urine Protein Urine Glucose (UA) Urine Ketones Urine Occult Blood Urine Nitrite Urine Bilirubin Urine Urobilinogen Ur Leukocyte Esterase Urine RBC Urine WBC Ur Squamous Epith Cells Urine Bacteria Urine Mucus S.aureus Protein A PCR MRSA (PCR) POC Glucose 01/03/19 01/03/19 01/03/19 12:25 15:05 17:40 WBC RBC Hgb Hct MCV MCH MCHC RDW RDW Differential Plt Count MPV Immature Gran % (Auto) Neut % (Auto) Lymph % (Auto) Kimball % (Auto) Eos % (Auto) Baso % (Auto) Absolute Neuts (auto) Absolute Lymphs (auto) Total Counted Neutrophils % (Manual) Band Neutrophils % Lymphocytes % (Manual) Monocytes % (Manual) Eosinophils % (Manual) Basophils % (Manual) Metamyelocytes % Diff Path Review Platelet Estimate Polychromasia Anisocytosis PT INR Specimen Type Sample Site pH Bicarbonate Actual POC Total CO2 Base Excess O2 Saturation O2 % ABG pCO2 ABG pO2 Kobe Test Respiration Rate O2 Delivery Device Vent Mode Tidal Volume POC PEEP Blood Gas Notified Whom Blood Gas Notified Time Sodium Potassium Chloride Carbon Dioxide Anion Gap BUN Creatinine Estim Creat Clear Calc Est GFR (MDRD) Af Amer Est GFR (MDRD) Non-Af BUN/Creatinine Ratio Glucose Lactic Acid Calcium Total Bilirubin AST ALT Alkaline Phosphatase Troponin I B-Natriuretic Peptide Total Protein Albumin Globulin Albumin/Globulin Ratio Urine Color Urine Clarity Urine pH Ur Specific [place] Urine Protein Urine Glucose (UA) Urine Ketones Urine Occult Blood Urine Nitrite Urine Bilirubin Urine Urobilinogen Ur Leukocyte Esterase Urine RBC Urine WBC Ur Squamous Epith Cells Urine Bacteria Urine Mucus S.aureus Protein A PCR NEGATIVE MRSA (PCR) Negative POC Glucose 226 H 221 H 01/03/19 01/04/19 01/04/19 22:11 05:10 05:10 WBC 13.8 H RBC 5.71 Hgb 15.0 Hct 45.7 MCV 80.0 MCH 26.3 L MCHC 32.8 RDW 19.6 H RDW Differential 56.2 H Plt Count 230 MPV 9.4 Immature Gran % (Auto) 0.300 Neut % (Auto) 90.7 H Lymph % (Auto) 5.5 L Kimball % (Auto) 3.4 Eos % (Auto) 0.0 Baso % (Auto) 0.1 Absolute Neuts (auto) 12.5 H Absolute Lymphs (auto) 0.76 L Total Counted Not Reportable Neutrophils % (Manual) Band Neutrophils % Lymphocytes % (Manual) Monocytes % (Manual) Eosinophils % (Manual) Basophils % (Manual) Metamyelocytes % Diff Path Review Platelet Estimate Polychromasia Anisocytosis PT INR Specimen Type Sample Site pH Bicarbonate Actual POC Total CO2 Base Excess O2 Saturation O2 % ABG pCO2 ABG pO2 Kobe Test Respiration Rate O2 Delivery Device Vent Mode Tidal Volume POC PEEP Blood Gas Notified Whom Blood Gas Notified Time Sodium 138 Potassium 4.2 Chloride 105 Carbon Dioxide 24.0 Anion Gap 9 BUN 19 H Creatinine 1.08 Estim Creat Clear Calc 74.16 Est GFR (MDRD) Af Amer 89 Est GFR (MDRD) Non-Af 74 BUN/Creatinine Ratio 17.6 Glucose 232 H Lactic Acid Calcium 8.1 L Total Bilirubin AST ALT Alkaline Phosphatase Troponin I B-Natriuretic Peptide Total Protein Albumin Globulin Albumin/Globulin Ratio Urine Color Urine Clarity Urine pH Ur Specific [place] Urine Protein Urine Glucose (UA) Urine Ketones Urine Occult Blood Urine Nitrite Urine Bilirubin Urine Urobilinogen Ur Leukocyte Esterase Urine RBC Urine WBC Ur Squamous Epith Cells Urine Bacteria Urine Mucus S.aureus Protein A PCR MRSA (PCR) POC Glucose 218 H 01/04/19 05:42 WBC RBC Hgb Hct MCV MCH MCHC RDW RDW Differential Plt Count MPV Immature Gran % (Auto) Neut % (Auto) Lymph % (Auto) Kimball % (Auto) Eos % (Auto) Baso % (Auto) Absolute Neuts (auto) Absolute Lymphs (auto) Total Counted Neutrophils % (Manual) Band Neutrophils % Lymphocytes % (Manual) Monocytes % (Manual) Eosinophils % (Manual) Basophils % (Manual) Metamyelocytes % Diff Path Review Platelet Estimate Polychromasia Anisocytosis PT INR Specimen Type Sample Site pH Bicarbonate Actual POC Total CO2 Base Excess O2 Saturation O2 % ABG pCO2 ABG pO2 Kobe Test Respiration Rate O2 Delivery Device Vent Mode Tidal Volume POC PEEP Blood Gas Notified Whom Blood Gas Notified Time Sodium Potassium Chloride Carbon Dioxide Anion Gap BUN Creatinine Estim Creat Clear Calc Est GFR (MDRD) Af Amer Est GFR (MDRD) Non-Af BUN/Creatinine Ratio Glucose Lactic Acid Calcium Total Bilirubin AST ALT Alkaline Phosphatase Troponin I B-Natriuretic Peptide Total Protein Albumin Globulin Albumin/Globulin Ratio Urine Color Urine Clarity Urine pH Ur Specific [place] Urine Protein Urine Glucose (UA) Urine Ketones Urine Occult Blood Urine Nitrite Urine Bilirubin Urine Urobilinogen Ur Leukocyte Esterase Urine RBC Urine WBC Ur Squamous Epith Cells Urine Bacteria Urine Mucus S.aureus Protein A PCR MRSA (PCR) POC Glucose 229 H Microbiology 01/03/19 12:55 Urine Catheter - Perez Streptococcus pneumoniae Antigen (M - Final 01/03/19 12:55 Urine Catheter - Perez Legionella Antigen - Final Clinical Impression(s) from Imaging Studies Chest X-Ray 01/03/19 07:45 IMPRESSION: An endotracheal tube is in situ and the tip is at 2.6 sinus proximal to the shabbir. CHF. Electronically Signed: Jos éMiguel Chao, at 8:53 EDT , Service support , KUB X-Ray 01/03/19 12:25 IMPRESSION: Gaseous distention of the stomach. The tip of the orogastric tube is not seen on this examination. Electronically Signed: José Miguel Chao, at 13:02 EDT , Service support , KUB X-Ray 01/03/19 12:42 IMPRESSION: The tip of the orogastric tube is within the body of the stomach. Electronically Signed: José Miguel Chao, at 13:10 EDT , Service support , Medical Necessity - Tobacco Use Smoking Status: Former smoker Assessment/Plan All Active Problems (Last Updated 01/03/19 @ 10:44 by Bhanu Olmedo DO) Acute respiratory failure with hypoxia and hypercapnia (Acute) Gram-negative pneumonia (Acute) Severe sepsis (Acute) Respiratory acidosis (Acute) ARIANNE (acute kidney injury) (Acute) RECOMMENDATIONS: 1. Transition to Precedex sedation 2. Agree with empiric antibiotics, steroids and bronchodilators 3. Continue on current vent settings with permissive hypercapnia 4. Spontaneous breathing and awakening trials per protocol 5. Okay to initiate tube feeds IMPRESSIONS: 1. Acute combined respiratory failure Unclear etiology at this time. Patient does have an infiltrate on chest x-ray and leukocytosis, so pneumonia would be suspected. Patient does have some lower extremity superficial wounds. Patient had an elevated lactate on pres entation, but part of this may be secondary to hypoxemia. Unclear if patient truly has a history of COPD as no PFTs are available for review. Empiric antibiotics, bronchodilators and steroids would be appropriate. Cultures are currently pending. Other possible etiology would be congestive heart failure and echocardiogram shows an EF of 20%. Blood pressure has remained stable. Possibly add diuretic therapy tomorrow if unable to pass spontaneous breathing trial. 2. Severe sepsis Possible pneumonia as a source. Patient does have a leukocytosis and tachypnea on presentation. This may also be secondary to stress response from chronic hypoxia as patient was found saturating 60% by EMS. Patient has received his fluid boluses. We will continue to monitor closely for blood pressure issues. Cultures are currently pending. Urinary antigen studies are pending. 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 Zosyn should be sufficient since MRSA swab is negative. 3. Acute kidney injury Resolved. Anticipate prerenal etiology. Patient has received fluids. We will continue to monitor. No indication for renal replacement therapy at this time. 4. Morbid obesity/coronary artery disease/peripheral artery disease/diabetes mellitus Complicates care, management, recovery and prognosis. We will need to watch blood sugars closely given steroid therapy. Likely initiate tube feeds tomorrow if unable to extubate. TIME: 33 minutes critical care time spent addressing patient's acute combined respiratory failure, possible sepsis, acute kidney injury, review of all data and collaboration with care team (6:30 AM to 7:30 AM) Code Visit 9xxxx: [id number] Critical care first hour
--- NOTE | 2019-01-04 09:42 | CM.UR ---
Addendum entered by Madai Lion 01/04/19 10:03: Went back to room at this time to do RN CM assessment however family not currently present in room. Sandro Lion RN, CCM. Original Note: Participated in interdisciplinary rounds this am. Son-in-law and grandson present for rounds. He remains intubated at this time. Family was updated on condition and expectations. Dr. Alvarado explained what had happened this am when they decreased sedation to see if he was ready to come off vent. Son-in-law had multiple questions about diet, which edward Bryan answered to his satisfaction at this time. Case management will continue to follow for discharge planning. Sandro Lion RN, CCM.
[2019-01-04] MEDS: Enoxaparin 40 MG/0.4 ML Syringe SC (11:23)
[2019-01-04] MEDS: Carvedilol 6.25 MG Tablet GT ×2 (11:23→21:36)
[2019-01-04] MEDS: CHLORHEXIDINE GLUC 2% CLOTH 1 EACH TOWELETTE TOPICAL (11:23)
[2019-01-04] MEDS: Famotidine 20 MG Tablet PO (11:23)
[2019-01-04] MEDS: Chlorhexidine 15 ML PO ×2 (11:24→21:41)
[2019-01-04 11:35] LABS: Bedside Glucose 220 mg/dL (70-110)
[2019-01-04] MEDS: Vital AF 1.2 Cal Liquid 1,000 ML 20 ML GT (11:48)
[2019-01-04] MEDS: Aspirin 81 MG TAB.CHEW GT (11:49)
--- NOTE | 2019-01-04 14:05 | PCM.PN.HOSP ---
Patient Problems: Active and Suspected Problems (Last Updated 01/03/19 @ 10:44 by Bhanu Olmedo DO) Acute respiratory failure with hypoxia and hypercapnia (Acute) Gram-negative pneumonia (Acute) Severe sepsis (Acute) Respiratory acidosis (Acute) ARIANNE (acute kidney injury) (Acute) Subjective: Still on vent. Sedated. Vitals/I&O's: Vital Signs Temp Pulse Resp BP Pulse Ox 37.2 C 64 18 124/70 H 97 01/04/19 12:00 01/04/19 12:00 01/04/19 12:00 01/04/19 12:00 01/04/19 12:00 Oxygen Flow Rate (L/min) 15 Oxygen Delivery Method Mechanical Ventilator Weight: 121.8 kg Body Mass Index (BMI) 39.9 Intake and Output for Last 24 Hours 01/02/19 01/03/19 01/04/19 23:59 23:59 23:59 Intake Total 1330.1 / 1330.1 1458 / 1458 Output Total 1225 / 1225 725 / 725 Balance 105.1 / 105.1 733 / 733 General: Alert, No apparent distress HEENT: Atraumatic, Normocephalic Oral: Moist Mucosa, No Gingival or Mucosal Lesions/ Ulcerations Neck: No Nodes, Thyroid Normal Size and Texture Lungs: Diminished, - - coarse breath sounds bilaterally. Cardiovascular: Regular rate, Regular Rhythm, Normal S1, Normal S2, No murmurs Abdomen: Bowel Sounds Present, Soft, Non Tender, Non-Distended, No Hepato-splenomegaly Extremities: No Calf Tenderness, Cool, Diminished Peripheral Pulses - RLE superficial ulcerations on toes and curtis, - - Left AKA Skin: - Microbiology Past 72 Hours 01/03/19 13:55 Sputum, Induced/Lukens Gram Stain - Final 01/03/19 13:55 Sputum, Induced/Lukens Respiratory Culture - Preliminary Appears to be normal respiratory glenis. Further studies to follow. 01/03/19 12:55 Urine Catheter - Perez Streptococcus pneumoniae Antigen (M - Final 01/03/19 12:55 Urine Catheter - Perez Legionella Antigen - Final Laboratory Results 01/03/19 15:05: POC Glucose 226 H 01/03/19 17:40: POC Glucose 221 H 01/03/19 22:11: POC Glucose 218 H 01/04/19 05:10: WBC 13.8 H, RBC 5.71, Hgb 15.0, Hct 45.7, MCV 80.0, MCH 26.3 L, MCHC 32.8, RDW 19.6 H, RDW Differential 56.2 H, Plt Count 230, MPV 9.4, Immature Gran % (Auto) 0.300, Neut % (Auto) 90.7 H, Lymph % (Auto) 5.5 L, [place] % (Auto) 3.4, Eos % (Auto) 0.0, Baso % (Auto) 0.1, Absolute Neuts (auto) 12.5 H, Absolute Lymphs (auto) 0.76 L, Total Counted Not Reportable 01/04/19 05:10: Sodium 138, Potassium 4.2, Chloride 105, Carbon Dioxide 24.0, Anion Gap 9, BUN 19 H, Creatinine 1.08, Estim Creat Clear Calc 74.16, Est GFR (MDRD) Af Amer 89, Est GFR (MDRD) Non-Af 74, BUN/Creatinine Ratio 17.6, Glucose 232 H, Calcium 8.1 L 01/04/19 05:42: POC Glucose 229 H 01/04/19 11:29: POC Glucose 220 H Current Medications Albuterol Sulfate (Ventolin Aerosols) 2.5 mg INHALATION Q2H PRN PRN PRN Reason: SHORTNESS OF BREATH Albuterol/Ipratropium (Duoneb) 3 ml INHALATION Q4HWA.RT [facility] Last Admin: 01/04/19 10:36 Dose: 3 ml Aspirin (Aspirin, Baby) 81 mg GT DAILY@0800 [facility] Last Admin: 01/04/19 11:49 Dose: 81 mg Carvedilol (Coreg) 6.25 mg GT BID [facility] Last Admin: 01/04/19 11:23 Dose: 6.25 mg Chlorhexidine Gluconate () 1 each TOPICAL DAILY [facility] Last Admin: 01/04/19 11:23 Dose: 1 each Chlorhexidine Gluconate () 15 ml PO BID [facility] Last Admin: 01/04/19 11:24 Dose: 15 ml Enoxaparin Sodium (Lovenox) 40 mg SC DAILY@1000 [facility] Last Admin: 01/04/19 11:23 Dose: 40 mg Famotidine (Pepcid) 20 mg PO BID [facility] Last Admin: 01/04/19 11:23 Dose: 20 mg Glucagon () 1 mg IM .X1 PRN PRN Reason: Hypoglycemia Propofol (Diprivan) 1,000 mg in 100 mls @ 7.476 mls/hr CONT INF .Q12H [facility] Last Admin: 01/04/19 05:49 Dose: 7.476 mls/hr Fentanyl () 100 mls @ 2.5 mls/hr CONT INF .Q40H [facility] Last Admin: 01/03/19 23:20 Dose: 2.5 mls/hr Sodium Chloride () 250 mls @ 15 mls/hr IV .[id number] PRN PRN Reason: SALINE FLUSH Sodium Chloride () 500 mls @ 15 mls/hr IV .[id number] PRN PRN Reason: SALINE FLUSH Sodium Chloride () 1,000 mls @ 100 mls/hr IV .Q10H [facility] Last Admin: 01/04/19 05:48 Dose: 100 mls/hr Piperacillin Sod/Tazobactam (Sod 3.375 gm/ Sodium Chloride) 50 mls @ 12.5 mls/hr IV Q8 [facility] Last Admin: 01/04/19 05:49 Dose: 12.5 mls/hr Dexmedetomidine HCl 400 mcg/ (Sodium Chloride) 100 mls @ 15.23 mls/hr CONT INF .Q6H34M [facility] Last Admin: 01/04/19 09:00 Dose: 15.23 mls/hr Enteral Nutritional Formula (Vital Af 1.2 Jovany Liquid) 1,000 mls @ 20 mls/hr GT .Q48H [facility] Last Admin: 01/04/19 11:48 Dose: 20 mls/hr Insulin Human Lispro (Humalog Kwikpen (Bkc)) 0 unit SQ Q6 [facility]; Protocol Last Admin: 01/04/19 11:48 Dose: 2 u Magnesium Hydroxide (Milk Of Magnesia) 30 ml PO DAILY PRN PRN PRN Reason: Constipation Methylprednisolone (Solu-Medrol) 40 mg IV Q8 [facility] Last Admin: 01/04/19 05:50 Dose: 40 mg Sodium Chloride () 5 - 15 ml IV UD PRN PRN Reason: SALINE FLUSH Medical Necessity - Tobacco Use Smoking Status: Former smoker Assessment/Plan All Active Problems (Last Updated 01/03/19 @ 10:44 by Bhanu Olmedo DO) Acute respiratory failure with hypoxia and hypercapnia (Acute) Gram-negative pneumonia (Acute) Severe sepsis (Acute) Respiratory acidosis (Acute) ARIANNE (acute kidney injury) (Acute) 1. Acute hypoxic and hypercapnic respiratory failure Suspect due to suspected gram-negative pneumonia plus his underlying COPD Continue with ventilator with critical care management to assist care Treat the underlying processes 2.Severe sepsis Present on admission 2/2 pneumonia IVF recheck lactate at least part of lactate elevation can be attributed to respiratory failure 3. Suspected gram negative pneumonia Vanc and Zosyn pulm toilet check urinary antigens for strep and legionella check sputum culture, thus far growing out normal respiratory glenis. 4. Possible AECOPD steroids and BDs 5. ARIANNE resolved suspect prerenal IVF 6. CAD/PAD/DM2: complicates care 7. VTE prophylaxis: LMWH Code Visit Inpatient E&M: 93871 Subs Hosp L2
--- NOTE | 2019-01-04 14:10 | PN_ITS ---
Patient Problems: Active and Suspected Problems (Last Updated 01/03/19 @ 10:44 by Bhanu Olmedo DO) Acute respiratory failure with hypoxia and hypercapnia (Acute) Gram-negative pneumonia (Acute) Severe sepsis (Acute) Respiratory acidosis (Acute) ARIANNE (acute kidney injury) (Acute) Subjective: Still on vent. Sedated. Vitals/I&O's: Vital Signs Temp Pulse Resp BP Pulse Ox 37.2 C 64 18 124/70 H 97 01/04/19 12:00 01/04/19 12:00 01/04/19 12:00 01/04/19 12:00 01/04/19 12:00 Oxygen Flow Rate (L/min) 15 Oxygen Delivery Method Mechanical Ventilator Weight: 121.8 kg Body Mass Index (BMI) 39.9 Intake and Output for Last 24 Hours 01/02/19 01/03/19 01/04/19 23:59 23:59 23:59 Intake Total 1330.1 / 1330.1 1458 / 1458 Output Total 1225 / 1225 725 / 725 Balance 105.1 / 105.1 733 / 733 General: Alert, No apparent distress HEENT: Atraumatic, Normocephalic Oral: Moist Mucosa, No Gingival or Mucosal Lesions/ Ulcerations Neck: No Nodes, Thyroid Normal Size and Texture Lungs: Diminished, - - coarse breath sounds bilaterally. Cardiovascular: Regular rate, Regular Rhythm, Normal S1, Normal S2, No murmurs Abdomen: Bowel Sounds Present, Soft, Non Tender, Non-Distended, No Hepato- splenomegaly Extremities: No Calf Tenderness, Cool, Diminished Peripheral Pulses - RLE superficial ulcerations on toes and curtis, - - Left AKA Skin: - Microbiology Past 72 Hours 01/03/19 13:55 Sputum, Induced/Lukens Gram Stain - Final 01/03/19 13:55 Sputum, Induced/Lukens Respiratory Culture - Preliminary Appears to be normal respiratory glenis. Further studies to follow. 01/03/19 12:55 Urine Catheter - Perez Streptococcus pneumoniae Antigen (M - Final 01/03/19 12:55 Urine Catheter - Perez Legionella Antigen - Final Laboratory Results 01/03/19 15:05: POC Glucose 226 H 01/03/19 17:40: POC Glucose 221 H 01/03/19 22:11: POC Glucose 218 H 01/04/19 05:10: WBC 13.8 H, RBC 5.71, Hgb 15.0, Hct 45.7, MCV 80.0, MCH 26.3 L, MCHC 32.8, RDW 19.6 H, RDW Differential 56.2 H, Plt Count 230, MPV 9.4, Immature Gran % (Auto) 0.300, Neut % (Auto) 90.7 H, Lymph % (Auto) 5.5 L, Ada % (Auto) 3.4, Eos % (Auto) 0.0, Baso % (Auto) 0.1, Absolute Neuts (auto) 12.5 H, Absolute Lymphs (auto) 0.76 L, Total Counted Not Reportable 01/04/19 05:10: Sodium 138, Potassium 4.2, Chloride 105, Carbon Dioxide 24.0, Anion Gap 9, BUN 19 H, Creatinine 1.08, Estim Creat Clear Calc 74.16, Est GFR (MDRD) Af Amer 89, Est GFR (MDRD) Non-Af 74, BUN/Creatinine Ratio 17.6, Glucose 232 H, Calcium 8.1 L 01/04/19 05:42: POC Glucose 229 H 01/04/19 11:29: POC Glucose 220 H Current Medications Albuterol Sulfate (Ventolin Aerosols) 2.5 mg INHALATION Q2H PRN PRN PRN Reason: SHORTNESS OF BREATH Albuterol/Ipratropium (Duoneb) 3 ml INHALATION Q4HWA.RT [facility] Last Admin: 01/04/19 10:36 Dose: 3 ml Aspirin (Aspirin, Baby) 81 mg GT DAILY@0800 [facility] Last Admin: 01/04/19 11:49 Dose: 81 mg Carvedilol (Coreg) 6.25 mg GT BID [facility] Last Admin: 01/04/19 11:23 Dose: 6.25 mg Chlorhexidine Gluconate () 1 each TOPICAL DAILY [facility] Last Admin: 01/04/19 11:23 Dose: 1 each Chlorhexidine Gluconate () 15 ml PO BID [facility] Last Admin: 01/04/19 11:24 Dose: 15 ml Enoxaparin Sodium (Lovenox) 40 mg SC DAILY@1000 [facility] Last Admin: 01/04/19 11:23 Dose: 40 mg Famotidine (Pepcid) 20 mg PO BID [facility] Last Admin: 01/04/19 11:23 Dose: 20 mg Glucagon () 1 mg IM .X1 PRN PRN Reason: Hypoglycemia Propofol (Diprivan) 1,000 mg in 100 mls @ 7.476 mls/hr CONT INF .Q12H [facility] Last Admin: 01/04/19 05:49 Dose: 7.476 mls/hr Fentanyl () 100 mls @ 2.5 mls/hr CONT INF .Q40H [facility] Last Admin: 01/03/19 23:20 Dose: 2.5 mls/hr Sodium Chloride () 250 mls @ 15 mls/hr IV .[id number] PRN PRN Reason: SALINE FLUSH Sodium Chloride () 500 mls @ 15 mls/hr IV .[id number] PRN PRN Reason: SALINE FLUSH Sodium Chloride () 1,000 mls @ 100 mls/hr IV .Q10H [facility] Last Admin: 01/04/19 05:48 Dose: 100 mls/hr Piperacillin Sod/Tazobactam (Sod 3.375 gm/ Sodium Chloride) 50 mls @ 12.5 mls/hr IV Q8 [facility] Last Admin: 01/04/19 05:49 Dose: 12.5 mls/hr Dexmedetomidine HCl 400 mcg/ (Sodium Chloride) 100 mls @ 15.23 mls/hr CONT INF .Q6H34M [facility] Last Admin: 01/04/19 09:00 Dose: 15.23 mls/hr Enteral Nutritional Formula (Vital Af 1.2 Jovany Liquid) 1,000 mls @ 20 mls/hr GT .Q48H [facility] Last Admin: 01/04/19 11:48 Dose: 20 mls/hr Insulin Human Lispro (Humalog Kwikpen (Bkc)) 0 unit SQ Q6 [facility]; Protocol Last Admin: 01/04/19 11:48 Dose: 2 u Magnesium Hydroxide (Milk Of Magnesia) 30 ml PO DAILY PRN PRN PRN Reason: Constipation Methylprednisolone (Solu-Medrol) 40 mg IV Q8 [facility] Last Admin: 01/04/19 05:50 Dose: 40 mg Sodium Chloride () 5 - 15 ml IV UD PRN PRN Reason: SALINE FLUSH Medical Necessity - Tobacco Use Smoking Status: Former smoker Assessment/Plan All Active Problems (Last Updated 01/03/19 @ 10:44 by Bhanu Olmedo DO) Acute respiratory failure with hypoxia and hypercapnia (Acute) Gram-negative pneumonia (Acute) Severe sepsis (Acute) Respiratory acidosis (Acute) ARIANNE (acute kidney injury) (Acute) 1. Acute hypoxic and hypercapnic respiratory failure * Suspect due to suspected gram-negative pneumonia plus his underlying COPD * Continue with ventilator with critical care management to assist care * Treat the underlying processes 2.Severe sepsis * Present on admission * 2/2 pneumonia * IVF * recheck lactate * at least part of lactate elevation can be attributed to respiratory failure 3. Suspected gram negative pneumonia * Vanc and Zosyn * pulm toilet * check urinary antigens for strep and legionella * check sputum culture, thus far growing out normal respiratory glenis. 4. Possible AECOPD * steroids and BDs 5. ARIANNE * resolved * suspect prerenal * IVF 6. CAD/PAD/DM2: complicates care 7. VTE prophylaxis: LMWH Code Visit Inpatient E&M: [id number] Subs Hosp L2
[2019-01-04 17:31] LABS: Bedside Glucose 218 mg/dL (70-110)
--- NOTE | 2019-01-04 17:42 | RAD_ITS ---
STUDY: X-RAY - ABDOMEN/PELVIS REASON FOR EXAM: Male, 63 years old. Verify OG tube placement TECHNIQUE: Single AP view of the abdomen / pelvis. COMPARISON: Abdominal plain film yesterday FINDINGS: Lungs are mildly hypoinflated. Lungs appear clear. Cardiomegaly is noted. NG tube is noted with tip in the stomach. Decreased gaseous distention of the stomach as compared to yesterday's exam. Continued gaseous dilated loops of small bowel. No evidence of free air. RAD/Abdomen Single View (Portable) IMPRESSION: As above Electronically Signed: Jordan Sosa DO at 18:26 EDT Tel , Service support ,
[2019-01-04] MEDS: fentaNYL drip 100 ML 2.5 MCG CONT INF (19:16)
[2019-01-04] MEDS: Famotidine 20 MG Tablet GT (21:36)
[2019-01-04 23:31] LABS: Bedside Glucose 230 mg/dL (70-110)
[2019-01-05] VITALS (31 sets, daily range): BP systolic 107–176; BP diastolic 55–93; PULSE 60–78; RESP 10–100; TEMP 32.2–37.7; O2SAT 95–100
[2019-01-05] MEDS: Ipratropium/Albuterol Sulfate 3 ML AMPUL.NEB INHALATION ×5 (01:10→19:37)
[2019-01-05 05:50] LABS: Absolute Lymphocyte Count 0.83 X10^3/ul (0.83-4.51); Absolute Neutrophil Count 15.7 X10^3/uL (2.0-7.7); Hematocrit 42.3 % (40-54); Hemoglobin 14.2 g/dl (13.0-16.5); Lymphocyte # 0.83 X10^3/ul (4.0); Lymphocyte % 4.7 % (19-41); Mean Corp Hgb Conc 33.6 g/gl (32-36); Mean Corpuscular Hgb 26.7 pg (27.0-32.0); Mean Corpuscular Volume 79.5 fL (80-94); Mean Platelet Vol. 9.8 fl (6.2-12.0); Monocyte# 1.25 X10^3/uL; Neutrophil # 15.68 X10^3/uL (2.7-7.7); Platelet Count 216 K/mm3 (150-450); RBC Distribution Width CV 18.9 % (11.6-14.6); RBC Distribution Width SD 53.9 fl (35.1-43.9); Red Blood Count 5.32 M/mm3 (4.6-6.2); White Blood Count 17.8 K/mm3 (4.4-11.0)
[2019-01-05 05:56] LABS: POSITIVE COUNT NO; POSITIVE DIFFERENTIAL NO; POSITIVE MORPHOLOGY NO
[2019-01-05 06:04] LABS: BUN 22 mg/dL (7-18); Glucose 265 mg/dL (74-106)
[2019-01-05 06:05] LABS: Anion Gap 9 (5-15); Calcium,Total 8.2 mg/dL (8.5-10.1); Chloride 106 mmol/L (98-107); EST Glomerular Filtration Rate 81 mL/min (>60); Est Glom Filt Rate - Afr Amer 98 mL/min (>60); Potassium 3.7 mmol/L (3.5-5.1); Sodium Level 137 mmol/L (136-145)
[2019-01-05 06:25] LABS: Allen Test POS; Base Excess -3 mmol/L (-2 to +2); Bicarbonate 20.2 mmol/L (22-26); Blood Gas Specimen Type ART; FI02 25; Mode CPAP PS; O2 Delivery Device Vent; PEEP 5; PO2 95 mmHG (75-100); PS 5; SITE L Radial; SO2 98 % (95-99); Time Given 610; Total Carbon Dioxide 21 mmol/L; pCO2 27.8 mmHg (35-45); pH 7.47 (7.35-7.45)
[2019-01-05] MEDS: Insulin Lispro 100 UNIT/ML INSULN.PEN SQ ×4 (06:45→21:17)
--- NOTE | 2019-01-05 07:06 | PN_ITS ---
Subjective: Patient did well overnight. Patient was found with saturated pillow from blood and oozing from IV sites. Patient was also noted to have blood in his Perez bag despite reported trauma and slight bloody secretions noted from endotracheal tube. Patient was able to have a spontaneous awakening trial this morning and was able to be liberated from the ventilator under my direct supervision without complication. Patient is not reporting any pain at this time. General: Alert, Oriented x3, Cooperative, No apparent distress, - - Obese. No conversational dyspnea noted. HEENT: Atraumatic, PERRLA, EOMI, Normocephalic, - - No scleral icterus or injection noted Oral: Moist Mucosa, No Gingival or Mucosal Lesions/ Ulcerations Neck: Supple, No Nodes, Trachea Midline, - - Difficult to assess JVD secondary to body habitus Lungs: No rhonchi, No wheeze, No rales, Diminished, - - Symmetric expansion. No dullness to percussion. Cardiovascular: Regular rate, Regular Rhythm, Normal S1, Normal S2, No murmurs, No rub noted, No Gallop, - - Paced rhythm noted on telemetry Abdomen: Bowel Sounds Present, Soft, Non Tender, Non-Distended, Obese Extremities: No clubbing, No cyanosis, No edema Skin: - - Grossly unchanged compared to previous. Right foot findings are unchanged. Musculoskeletal: No Tenderness to Palpation of Joints or Extremities Lymphatic: No Cervical, Supraclavicular, or Inguinal Adenopathy Neurological: Cranial nerves II-XII grossly intact, Neuro grossly intact Psych/Mental Status: Alert and oriented to time, place, person, mood and affect Vital Signs Temp Pulse Resp BP Pulse Ox 37.4 C H 64 16 175/86 H 98 01/05/19 06:00 01/05/19 06:34 01/05/19 06:34 01/05/19 06:00 01/05/19 06:25 Oxygen Flow Rate (L/min) 3 Oxygen Delivery Method Nasal Cannula Weight: 121.6 kg Body Mass Index (BMI) 39.9 Intake and Output for Last 24 Hours 01/03/19 01/04/19 01/05/19 23:59 23:59 23:59 Intake Total 1330.1 / 1330.1 2621.1 / 2621.1 304.2 / 304.2 Output Total 1225 / 1225 1275 / 1275 450 / 450 Balance 105.1 / 105.1 1346.1 / 1346.1 -145.8 / -145.8 Labs (Last 48 Hours) 01/03/19 01/03/19 01/03/19 07:09 07:09 07:09 WBC 20.4 H RBC 5.97 Hgb 16.3 Hct 50.6 MCV 84.8 MCH 27.3 MCHC 32.2 RDW 18.8 H RDW Differential 58.6 H Plt Count 301 MPV 9.5 Immature Gran % (Auto) [employer] Neut % (Auto) [employer] Lymph % (Auto) [employer] [place] % (Auto) [employer] Eos % (Auto) [employer] Baso % (Auto) [employer] Absolute Neuts (auto) 8.0 H Absolute Lymphs (auto) 9.99 H Total Counted 100 Neutrophils % (Manual) 37 L Band Neutrophils % 2 Lymphocytes % (Manual) 49 H Monocytes % (Manual) 5 Eosinophils % (Manual) 4 Basophils % (Manual) 1 Metamyelocytes % 2 H Diff Path Review May foll Platelet Estimate ADEQUATE Polychromasia 1+ Anisocytosis 1+ PT 13.7 INR 1.1 APTT Fibrinogen Specimen Type Sample Site pH Bicarbonate Actual POC Total CO2 Base Excess O2 Saturation O2 % ABG pCO2 ABG pO2 Kobe Test Respiration Rate O2 Delivery Device Vent Mode Tidal Volume POC PEEP POC Pressure Suppt Blood Gas Notified Whom Blood Gas Notified Time Sodium 135 L Potassium 4.3 Chloride 101 Carbon Dioxide 15.0 L Anion Gap 19 H BUN 21 H Creatinine 1.45 H Estim Creat Clear Calc 55.24 Est GFR (MDRD) Af Amer 64 Est GFR (MDRD) Non-Af 53 L BUN/Creatinine Ratio 14.5 Glucose 325 H Lactic Acid Calcium 8.7 Total Bilirubin 0.30 AST 33 ALT 31 Alkaline Phosphatase 81 Troponin I 0.032 B-Natriuretic Peptide Total Protein 8.2 Albumin 3.8 Globulin 4.4 H Albumin/Globulin Ratio 0.9 Urine Color Urine Clarity Urine pH Ur Specific Burns Urine Protein Urine Glucose (UA) Urine Ketones Urine Occult Blood Urine Nitrite Urine Bilirubin Urine Urobilinogen Ur Leukocyte Esterase Urine RBC Urine WBC Ur Squamous Epith Cells Urine Bacteria Urine Mucus S.aureus Protein A PCR MRSA (PCR) POC Glucose 01/03/19 01/03/19 01/03/19 07:09 07:14 07:30 WBC RBC Hgb Hct MCV MCH MCHC RDW RDW Differential Plt Count MPV Immature Gran % (Auto) Neut % (Auto) Lymph % (Auto) [place] % (Auto) Eos % (Auto) Baso % (Auto) Absolute Neuts (auto) Absolute Lymphs (auto) Total Counted Neutrophils % (Manual) Band Neutrophils % Lymphocytes % (Manual) Monocytes % (Manual) Eosinophils % (Manual) Basophils % (Manual) Metamyelocytes % Diff Path Review Platelet Estimate Polychromasia Anisocytosis PT INR APTT Fibrinogen Specimen Type Sample Site pH Bicarbonate Actual POC Total CO2 Base Excess O2 Saturation O2 % ABG pCO2 ABG pO2 Kobe Test Respiration Rate O2 Delivery Device Vent Mode Tidal Volume POC PEEP POC Pressure Suppt Blood Gas Notified Whom Blood Gas Notified Time Sodium Potassium Chloride Carbon Dioxide Anion Gap BUN Creatinine Estim Creat Clear Calc Est GFR (MDRD) Af Amer Est GFR (MDRD) Non-Af BUN/Creatinine Ratio Glucose Lactic Acid 10.2 H* Calcium Total Bilirubin AST ALT Alkaline Phosphatase Troponin I B-Natriuretic Peptide 139.4 H Total Protein Albumin Globulin Albumin/Globulin Ratio Urine Color Yellow Urine Clarity Clear Urine pH 6.5 Ur Specific Burns 1.015 Urine Protein 500 H Urine Glucose (UA) 50 H Urine Ketones Negative Urine Occult Blood 25 H Urine Nitrite Negative Urine Bilirubin Negative Urine Urobilinogen Normal Ur Leukocyte Esterase 25 H Urine RBC 0-5 SEEN Urine WBC 0-5 SEEN Ur Squamous Epith Cells 0-5 SEEN Urine Bacteria RARE Urine Mucus 0 SEEN S.aureus Protein A PCR MRSA (PCR) POC Glucose 01/03/19 01/03/19 01/03/19 08:33 10:16 11:47 WBC RBC Hgb Hct MCV MCH MCHC RDW RDW Differential Plt Count MPV Immature Gran % (Auto) Neut % (Auto) Lymph % (Auto) [place] % (Auto) Eos % (Auto) Baso % (Auto) Absolute Neuts (auto) Absolute Lymphs (auto) Total Counted Neutrophils % (Manual) Band Neutrophils % Lymphocytes % (Manual) Monocytes % (Manual) Eosinophils % (Manual) Basophils % (Manual) Metamyelocytes % Diff Path Review Platelet Estimate Polychromasia Anisocytosis PT INR APTT Fibrinogen Specimen Type ART ART Sample Site R Radial R Radial pH 7.17 L* 7.29 L Bicarbonate Actual 18.8 L 21.0 L POC Total CO2 20 22 Base Excess -10 L -6 L O2 Saturation 100 H 99 O2 % 100 50 ABG pCO2 51.1 H 44.1 ABG pO2 289 H 158 H Kobe Test POS Respiration Rate 16 16 O2 Delivery Device Vent Vent Vent Mode A-C A-C Tidal Volume 500 450 POC PEEP 5 5 POC Pressure Suppt Blood Gas Notified Whom ED MD ICU MD Blood Gas Notified Time 840 1146 Sodium Potassium Chloride Carbon Dioxide Anion Gap BUN Creatinine Estim Creat Clear Calc Est GFR (MDRD) Af Amer Est GFR (MDRD) Non-Af BUN/Creatinine Ratio Glucose Lactic Acid 3.2 H Calcium Total Bilirubin AST ALT Alkaline Phosphatase Troponin I B-Natriuretic Peptide Total Protein Albumin Globulin Albumin/Globulin Ratio Urine Color Urine Clarity Urine pH Ur Specific Burns Urine Protein Urine Glucose (UA) Urine Ketones Urine Occult Blood Urine Nitrite Urine Bilirubin Urine Urobilinogen Ur Leukocyte Esterase Urine RBC Urine WBC Ur Squamous Epith Cells Urine Bacteria Urine Mucus S.aureus Protein A PCR MRSA (PCR) POC Glucose 01/03/19 01/03/19 01/03/19 12:25 15:05 17:40 WBC RBC Hgb Hct MCV MCH MCHC RDW RDW Differential Plt Count MPV Immature Gran % (Auto) Neut % (Auto) Lymph % (Auto) [place] % (Auto) Eos % (Auto) Baso % (Auto) Absolute Neuts (auto) Absolute Lymphs (auto) Total Counted Neutrophils % (Manual) Band Neutrophils % Lymphocytes % (Manual) Monocytes % (Manual) Eosinophils % (Manual) Basophils % (Manual) Metamyelocytes % Diff Path Review Platelet Estimate Polychromasia Anisocytosis PT INR APTT Fibrinogen Specimen Type Sample Site pH Bicarbonate Actual POC Total CO2 Base Excess O2 Saturation O2 % ABG pCO2 ABG pO2 Kobe Test Respiration Rate O2 Delivery Device Vent Mode Tidal Volume POC PEEP POC Pressure Suppt Blood Gas Notified Whom Blood Gas Notified Time Sodium Potassium Chloride Carbon Dioxide Anion Gap BUN Creatinine Estim Creat Clear Calc Est GFR (MDRD) Af Amer Est GFR (MDRD) Non-Af BUN/Creatinine Ratio Glucose Lactic Acid Calcium Total Bilirubin AST ALT Alkaline Phosphatase Troponin I B-Natriuretic Peptide Total Protein Albumin Globulin Albumin/Globulin Ratio Urine Color Urine Clarity Urine pH Ur Specific Burns Urine Protein Urine Glucose (UA) Urine Ketones Urine Occult Blood Urine Nitrite Urine Bilirubin Urine Urobilinogen Ur Leukocyte Esterase Urine RBC Urine WBC Ur Squamous Epith Cells Urine Bacteria Urine Mucus S.aureus Protein A PCR NEGATIVE MRSA (PCR) Negative POC Glucose 226 H 221 H 04/01/04/19 01/04/19 22:11 05:10 05:10 WBC 13.8 H RBC 5.71 Hgb 15.0 Hct 45.7 MCV 80.0 MCH 26.3 L MCHC 32.8 RDW 19.6 H RDW Differential 56.2 H Plt Count 230 MPV 9.4 Immature Gran % (Auto) 0.300 Neut % (Auto) 90.7 H Lymph % (Auto) 5.5 L [place] % (Auto) 3.4 Eos % (Auto) 0.0 Baso % (Auto) 0.1 Absolute Neuts (auto) 12.5 H Absolute Lymphs (auto) 0.76 L Total Counted Not Reportable Neutrophils % (Manual) Band Neutrophils % Lymphocytes % (Manual) Monocytes % (Manual) Eosinophils % (Manual) Basophils % (Manual) Metamyelocytes % Diff Path Review Platelet Estimate Polychromasia Anisocytosis PT INR APTT Fibrinogen Specimen Type Sample Site pH Bicarbonate Actual POC Total CO2 Base Excess O2 Saturation O2 % ABG pCO2 ABG pO2 Kobe Test Respiration Rate O2 Delivery Device Vent Mode Tidal Volume POC PEEP POC Pressure Suppt Blood Gas Notified Whom Blood Gas Notified Time Sodium 138 Potassium 4.2 Chloride 105 Carbon Dioxide 24.0 Anion Gap 9 BUN 19 H Creatinine 1.08 Estim Creat Clear Calc 74.16 Est GFR (MDRD) Af Amer 89 Est GFR (MDRD) Non-Af 74 BUN/Creatinine Ratio 17.6 Glucose 232 H Lactic Acid Calcium 8.1 L Total Bilirubin AST ALT Alkaline Phosphatase Troponin I B-Natriuretic Peptide Total Protein Albumin Globulin Albumin/Globulin Ratio Urine Color Urine Clarity Urine pH Ur Specific Burns Urine Protein Urine Glucose (UA) Urine Ketones Urine Occult Blood Urine Nitrite Urine Bilirubin Urine Urobilinogen Ur Leukocyte Esterase Urine RBC Urine WBC Ur Squamous Epith Cells Urine Bacteria Urine Mucus S.aureus Protein A PCR MRSA (PCR) POC Glucose 218 H 01/04/19 01/04/19 01/04/19 05:42 11:29 17:17 WBC RBC Hgb Hct MCV MCH MCHC RDW RDW Differential Plt Count MPV Immature Gran % (Auto) Neut % (Auto) Lymph % (Auto) [place] % (Auto) Eos % (Auto) Baso % (Auto) Absolute Neuts (auto) Absolute Lymphs (auto) Total Counted Neutrophils % (Manual) Band Neutrophils % Lymphocytes % (Manual) Monocytes % (Manual) Eosinophils % (Manual) Basophils % (Manual) Metamyelocytes % Diff Path Review Platelet Estimate Polychromasia Anisocytosis PT INR APTT Fibrinogen Specimen Type Sample Site pH Bicarbonate Actual POC Total CO2 Base Excess O2 Saturation O2 % ABG pCO2 ABG pO2 Kobe Test Respiration Rate O2 Delivery Device Vent Mode Tidal Volume POC PEEP POC Pressure Suppt Blood Gas Notified Whom Blood Gas Notified Time Sodium Potassium Chloride Carbon Dioxide Anion Gap BUN Creatinine Estim Creat Clear Calc Est GFR (MDRD) Af Amer Est GFR (MDRD) Non-Af BUN/Creatinine Ratio Glucose Lactic Acid Calcium Total Bilirubin AST ALT Alkaline Phosphatase Troponin I B-Natriuretic Peptide Total Protein Albumin Globulin Albumin/Globulin Ratio Urine Color Urine Clarity Urine pH Ur Specific Burns Urine Protein Urine Glucose (UA) Urine Ketones Urine Occult Blood Urine Nitrite Urine Bilirubin Urine Urobilinogen Ur Leukocyte Esterase Urine RBC Urine WBC Ur Squamous Epith Cells Urine Bacteria Urine Mucus S.aureus Protein A PCR MRSA (PCR) POC Glucose 229 H 220 H 218 H 01/04/19 01/05/19 01/05/19 23:21 05:20 05:20 WBC 17.8 H RBC 5.32 Hgb 14.2 Hct 42.3 MCV 79.5 L MCH 26.7 L MCHC 33.6 RDW 18.9 H RDW Differential 53.9 H Plt Count 216 MPV 9.8 Immature Gran % (Auto) 0.300 Neut % (Auto) 88.0 H Lymph % (Auto) 4.7 L [place] % (Auto) 7.0 Eos % (Auto) 0.0 Baso % (Auto) 0.0 Absolute Neuts (auto) 15.7 H Absolute Lymphs (auto) 0.83 Total Counted Not Reportable Neutrophils % (Manual) Band Neutrophils % Lymphocytes % (Manual) Monocytes % (Manual) Eosinophils % (Manual) Basophils % (Manual) Metamyelocytes % Diff Path Review Platelet Estimate Polychromasia Anisocytosis PT INR APTT Fibrinogen Specimen Type Sample Site pH Bicarbonate Actual POC Total CO2 Base Excess O2 Saturation O2 % ABG pCO2 ABG pO2 Kobe Test Respiration Rate O2 Delivery Device Vent Mode Tidal Volume POC PEEP POC Pressure Suppt Blood Gas Notified Whom Blood Gas Notified Time Sodium 137 Potassium 3.7 Chloride 106 Carbon Dioxide 22.0 Anion Gap 9 BUN 22 H Creatinine 1.00 Estim Creat Clear Calc 80.10 Est GFR (MDRD) Af Amer 98 Est GFR (MDRD) Non-Af 81 BUN/Creatinine Ratio 22.0 H Glucose 265 H Lactic Acid Calcium 8.2 L Total Bilirubin AST ALT Alkaline Phosphatase Troponin I B-Natriuretic Peptide Total Protein Albumin Globulin Albumin/Globulin Ratio Urine Color Urine Clarity Urine pH Ur Specific Burns Urine Protein Urine Glucose (UA) Urine Ketones Urine Occult Blood Urine Nitrite Urine Bilirubin Urine Urobilinogen Ur Leukocyte Esterase Urine RBC Urine WBC Ur Squamous Epith Cells Urine Bacteria Urine Mucus S.aureus Protein A PCR MRSA (PCR) POC Glucose 230 H 01/05/19 01/05/19 06:17 06:20 WBC RBC Hgb Hct MCV MCH MCHC RDW RDW Differential Plt Count MPV Immature Gran % (Auto) Neut % (Auto) Lymph % (Auto) [place] % (Auto) Eos % (Auto) Baso % (Auto) Absolute Neuts (auto) Absolute Lymphs (auto) Total Counted Neutrophils % (Manual) Band Neutrophils % Lymphocytes % (Manual) Monocytes % (Manual) Eosinophils % (Manual) Basophils % (Manual) Metamyelocytes % Diff Path Review Platelet Estimate Polychromasia Anisocytosis PT Pending INR Pending APTT Pending Fibrinogen Pending Specimen Type ART Sample Site L Radial pH 7.47 H Bicarbonate Actual 20.2 L POC Total CO2 21 Base Excess -3 L O2 Saturation 98 O2 % 25 ABG pCO2 27.8 L ABG pO2 95 Kobe Test POS Respiration Rate O2 Delivery Device Vent Vent Mode CPAP PS Tidal Volume POC PEEP 5 POC Pressure Suppt 5 Blood Gas Notified Whom ICU MD Blood Gas Notified Time 610 Sodium Potassium Chloride Carbon Dioxide Anion Gap BUN Creatinine Estim Creat Clear Calc Est GFR (MDRD) Af Amer Est GFR (MDRD) Non-Af BUN/Creatinine Ratio Glucose Lactic Acid Calcium Total Bilirubin AST ALT Alkaline Phosphatase Troponin I B-Natriuretic Peptide Total Protein Albumin Globulin Albumin/Globulin Ratio Urine Color Urine Clarity Urine pH Ur Specific Burns Urine Protein Urine Glucose (UA) Urine Ketones Urine Occult Blood Urine Nitrite Urine Bilirubin Urine Urobilinogen Ur Leukocyte Esterase Urine RBC Urine WBC Ur Squamous Epith Cells Urine Bacteria Urine Mucus S.aureus Protein A PCR MRSA (PCR) POC Glucose Microbiology 01/03/19 13:55 Sputum, Induced/Lukens Gram Stain - Final 01/03/19 13:55 Sputum, Induced/Lukens Respiratory Culture - Preliminary Appears to be normal respiratory glenis. Further studies to follow. 01/03/19 12:55 Urine Catheter - Perez Streptococcus pneumoniae Antigen (M - Final 01/03/19 12:55 Urine Catheter - Perez Legionella Antigen - Final Clinical Impression(s) from Imaging Studies KUB X-Ray 01/04/19 17:42 IMPRESSION: As above Electronically Signed: Jordan Sosa DO at 18:26 EDT Tel , Service support , Medical Necessity - Tobacco Use Smoking Status: Former smoker Assessment/Plan All Active Problems (Last Updated 01/03/19 @ 10:44 by Bhanu Olmedo DO) Acute respiratory failure with hypoxia and hypercapnia (Acute) Gram-negative pneumonia (Acute) Severe sepsis (Acute) Respiratory acidosis (Acute) ARIANNE (acute kidney injury) (Acute) RECOMMENDATIONS: 1. Bedside swallow evaluation. Transition to q. before meals and at bedtime blood sugars 2. Agree with empiric antibiotics and bronchodilators, wean steroids 3. Possibly add antihypertensives later today 4. Increase activity as tolerated 5. Okay to initiate tube feeds IMPRESSIONS: 1. Acute combined respiratory failure Patient appears to have recovered from acute combined respiratory failure rapidly. Patient did have a leukocytosis on presentation, but secretions have been relatively minimal. We will continue to monitor blood pressure, but patient's last known ejection fraction was 20% with diastolic dysfunction, so flash pulmonary edema may account for presentation. Patient may have an element of COPD given [id number] smoking history, but this would need to be evaluated as an outpatient. We will continue to wean oxygen as tolerated. 2. Severe sepsis Possible pneumonia as a source. Patient does have a leukocytosis and tachypnea on presentation. This may also be secondary to stress response from chronic hypoxia as patient was found saturating 60% by EMS. Patient has received his fluid boluses. We will continue to monitor closely for blood press ure issues. Cultures are currently pending. 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 Zosyn should be sufficient since MRSA swab is negative. Await negative cultures before discontinuation of antibiotics 3. Acute kidney injury Resolved. Anticipate prerenal etiology. Patient has received fluids. We will continue to monitor. No indication for renal replacement therapy at this time. 4. Morbid obesity/coronary artery disease/peripheral artery disease/diabetes mellitus Complicates care, management, recovery and prognosis. We will need to watch blood sugars closely given steroid therapy. TIME: 33 minutes critical care time spent addressing patient's acute combined respiratory failure, possible sepsis, acute kidney injury, review of all data and collaboration with care team (6:00 AM to 7:00 AM) Code Visit [id number]: [id number] Critical care first hour
[2019-01-05 08:28] LABS: Prothrombin Time (Protime)PT. 13.4 SECONDS (11.7-14.9)
[2019-01-05 08:29] LABS: Fibrinogen 370 mg/dl (203-444); Partial Thromboplast Time 22.5 Seconds (24.1-36.2)
--- NOTE | 2019-01-05 08:29 | PCM.PN.HOSP ---
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 Currently on nasal cannula. Patient denies shortness of breath but has mild cough. Before intubation, patient had about 10 days of cough and got very short of breath on the day of admission with difficulty of breathing in air but no problem and exhalation. Vitals/I&O's: Vital Signs Temp Pulse Resp BP Pulse Ox 99.5 F H 73 20 H 151/86 H 97 01/05/19 07:00 01/05/19 07:00 01/05/19 07:00 01/05/19 07:00 01/05/19 07:00 Oxygen Flow Rate (L/min) 3 Oxygen Delivery Method Nasal Cannula Weight: 268 lb 1.314 oz Body Mass Index (BMI) 39.9 Intake and Output for Last 24 Hours 01/03/19 01/04/19 01/05/19 23:59 23:59 23:59 Intake Total 1330.1 / 1330.1 2621.1 / 2621.1 304.2 / 304.2 Output Total 1225 / 1225 1275 / 1275 450 / 450 Balance 105.1 / 105.1 1346.1 / 1346.1 -145.8 / -145.8 General: Alert, Oriented x3, Cooperative HEENT: Atraumatic, PERRLA, EOMI, Normocephalic Neck: Supple, No JVD, Negative Carotid Bruits Lungs: Clear to auscultation, No rhonchi, No wheeze, No rales, Diminished Cardiovascular: Regular rate, Regular Rhythm, Normal S1, Normal S2, No murmurs Abdomen: Bowel Sounds Present, Soft, Non Tender Extremities: Capillary Refill Less than 3 Seconds, Edema, - - Left above-knee amputation Skin: Ulcer/ Wound - Small scabs with dry wound present on the toes of right foot Musculoskeletal: No Tenderness to Palpation of Joints or Extremities, Arthritic Changes Lymphatic: No Cervical, Supraclavicular, or Inguinal Adenopathy Neurological: Cranial nerves II-XII grossly intact, Deep Tendon Reflexes 2+/4 and Symmetrical, Neuro grossly intact Psych/Mental Status: Normal Affect, Appropriate Microbiology Past 72 Hours 01/03/19 07:40 Blood Culture (Wb) - Anticubital Right Blood Culture - Preliminary No growth in 48 hours. 01/03/19 07:45 Blood Culture (Wb) - Left Forearm Blood Culture - Preliminary No growth in 48 hours. 01/03/19 13:55 Sputum, Induced/Lukens Gram Stain - Final 01/03/19 13:55 Sputum, Induced/Lukens Respiratory Culture - Preliminary Appears to be normal respiratory glenis. Further studies to follow. 01/03/19 12:55 Urine Catheter - Perez Streptococcus pneumoniae Antigen (M - Final 01/03/19 12:55 Urine Catheter - Perez Legionella Antigen - Final Laboratory Results 01/04/19 11:29: POC Glucose 220 H 01/04/19 17:17: POC Glucose 218 H 01/04/19 23:21: POC Glucose 230 H 01/05/19 05:20: WBC 17.8 H, RBC 5.32, Hgb 14.2, Hct 42.3, MCV 79.5 L, MCH 26.7 L, MCHC 33.6, RDW 18.9 H, RDW Differential 53.9 H, Plt Count 216, MPV 9.8, Immature Gran % (Auto) 0.300, Neut % (Auto) 88.0 H, Lymph % (Auto) 4.7 L, Austin % (Auto) 7.0, Eos % (Auto) 0.0, Baso % (Auto) 0.0, Absolute Neuts (auto) 15.7 H, Absolute Lymphs (auto) 0.83, Total Counted Not Reportable 01/05/19 05:20: Sodium 137, Potassium 3.7, Chloride 106, Carbon Dioxide 22.0, Anion Gap 9, BUN 22 H, Creatinine 1.00, Estim Creat Clear Calc 80.10, Est GFR (MDRD) Af Amer 98, Est GFR (MDRD) Non-Af 81, BUN/Creatinine Ratio 22.0 H, Glucose 265 H, Calcium 8.2 L 01/05/19 06:17: Specimen Type ART, Sample Site L Radial, pH 7.47 H, Bicarbonate Actual 20.2 L, POC Total CO2 21, Base Excess -3 L, O2 Saturation 98, O2 % 25, ABG pCO2 27.8 L, ABG pO2 95, Kobe Test POS, O2 Delivery Device Vent, Vent Mode CPAP PS, POC PEEP 5, POC Pressure Suppt 5, Blood Gas Notified Whom ICU MD, Blood Gas Notified Time 610 01/05/19 06:20: PT Cancelled, INR Cancelled, APTT Cancelled, Fibrinogen Cancelled 01/05/19 08:15: PT Pending, INR Pending, APTT Pending, Fibrinogen Pending Current Medications Albuterol Sulfate (Ventolin Aerosols) 2.5 mg INHALATION Q2H PRN PRN PRN Reason: SHORTNESS OF BREATH Albuterol/Ipratropium (Duoneb) 3 ml INHALATION Q4HWA.RT [facility] Last Admin: 01/05/19 06:34 Dose: 3 ml Aspirin (Aspirin, Baby) 81 mg GT DAILY@0800 [facility] Last Admin: 01/04/19 11:49 Dose: 81 mg Carvedilol (Coreg) 6.25 mg GT BID [facility] Last Admin: 01/04/19 21:36 Dose: 6.25 mg Chlorhexidine Gluconate () 1 each TOPICAL DAILY [facility] Last Admin: 01/04/19 11:23 Dose: 1 each Chlorhexidine Gluconate () 15 ml PO BID [facility] Last Admin: 01/04/19 21:41 Dose: 15 ml Enoxaparin Sodium (Lovenox) 40 mg SC DAILY@1000 [facility] Last Admin: 01/04/19 11:23 Dose: 40 mg Famotidine (Pepcid) 20 mg GT BID [facility] Last Admin: 01/04/19 21:36 Dose: 20 mg Glucagon () 1 mg IM .X1 PRN PRN Reason: Hypoglycemia Sodium Chloride () 250 mls @ 15 mls/hr IV .[id number] PRN PRN Reason: SALINE FLUSH Piperacillin Sod/Tazobactam (Sod 3.375 gm/ Sodium Chloride) 50 mls @ 12.5 mls/hr IV Q8 [facility] Last Admin: 01/05/19 06:46 Dose: 12.5 mls/hr Insulin Human Lispro (Humalog Kwikpen (Bkc)) 0 unit SQ ACHS [facility]; Protocol Last Admin: 01/05/19 07:49 Dose: Not Given Magnesium Hydroxide (Milk Of Magnesia) 30 ml PO DAILY PRN PRN PRN Reason: Constipation Methylprednisolone (Solu-Medrol) 40 mg IV Q12 VY Sodium Chloride () 5 - 15 ml IV UD PRN PRN Reason: SALINE FLUSH Medical Necessity - Tobacco Use Smoking Status: Former smoker Assessment/Plan All Active Problems (Last Updated 01/03/19 @ 10:44 by Bhanu Olmedo DO) Acute respiratory failure with hypoxia and hypercapnia (Acute) Gram-negative pneumonia (Acute) Severe sepsis (Acute) Respiratory acidosis (Acute) ARIANNE (acute kidney injury) (Acute) This is a 63-year-old gentleman with history of COPD and pneumonia about 2 months ago was admitted with shortness of breath, cough and was intubated in the ER. 1. Acute hypoxic and hypercapnic respiratory failure Suspect due to suspected gram-negative pneumonia plus his underlying COPD The patient is extubated on 01/05/2019 2. Severe sepsis, present on admission secondary to possible healthcare associated pneumonia, with suspicion of gram negative pneumonia Vanc and Zosyn pulm toilet Urinary antigens are negative for Legionella and Streptococcus. Sputum culture preliminary appears to be normal respiratory glenis. 4. Possible AECOPD steroids and bronchodilators 5. ARIANNE Resolved. Creatinine on baseline 1.0. 6. CAD/PAD/DM2: Multiple comorbidities complicates the present care and expect difficult and delay recovery 7. VTE prophylaxis: On Lovenox Clinical Impression(s) from Imaging Studies Chest X-Ray 01/03/19 07:45 IMPRESSION: An endotracheal tube is in situ and the tip is at 2.6 sinus proximal to the shabbir. CHF. Microbiology Past 72 Hours 01/03/19 07:40 Blood Culture (Wb) - Anticubital Right Blood Culture - Preliminary No growth in 48 hours. 01/03/19 07:45 Blood Culture (Wb) - Left Forearm Blood Culture - Preliminary No growth in 48 hours. 01/03/19 13:55 Sputum, Induced/Lukens Gram Stain - Final 01/03/19 13:55 Sputum, Induced/Lukens Respiratory Culture - Preliminary Appears to be normal respiratory glenis. Further studies to follow. 01/03/19 12:55 Urine Catheter - Perez Streptococcus pneumoniae Antigen (M - Final 01/03/19 12:55 Urine Catheter - Perez Legionella Antigen - Final Laboratory Results 01/04/19 11:29: POC Glucose 220 H 01/04/19 17:17: POC Glucose 218 H 01/04/19 23:21: POC Glucose 230 H 01/05/19 05:20: WBC 17.8 H, RBC 5.32, Hgb 14.2, Hct 42.3, MCV 79.5 L, MCH 26.7 L, MCHC 33.6, RDW 18.9 H, RDW Differential 53.9 H, Plt Count 216, MPV 9.8, Immature Gran % (Auto) 0.300, Neut % (Auto) 88.0 H, Lymph % (Auto) 4.7 L, Austin % (Auto) 7.0, Eos % (Auto) 0.0, Baso % (Auto) 0.0, Absolute Neuts (auto) 15.7 H, Absolute Lymphs (auto) 0.83, Total Counted Not Reportable 01/05/19 05:20: Sodium 137, Potassium 3.7, Chloride 106, Carbon Dioxide 22.0, Anion Gap 9, BUN 22 H, Creatinine 1.00, Estim Creat Clear Calc 80.10, Est GFR (MDRD) Af Amer 98, Est GFR (MDRD) Non-Af 81, BUN/Creatinine Ratio 22.0 H, Glucose 265 H, Calcium 8.2 L 01/05/19 06:17: Specimen Type ART, Sample Site L Radial, pH 7.47 H, Bicarbonate Actual 20.2 L, POC Total CO2 21, Base Excess -3 L, O2 Saturation 98, O2 % 25, ABG pCO2 27.8 L, ABG pO2 95, Kobe Test POS, O2 Delivery Device Vent, Vent Mode CPAP PS, POC PEEP 5, POC Pressure Suppt 5, Blood Gas Notified Whom ICU MD, Blood Gas Notified Time 610 01/05/19 06:20: PT Cancelled, INR Cancelled, APTT Cancelled, Fibrinogen Cancelled 01/05/19 08:15: PT 13.4, INR 1.0, APTT 22.5 L, Fibrinogen 370 Active Medications Albuterol Sulfate (Ventolin Aerosols) 2.5 mg INHALATION Q2H PRN PRN PRN Reason: SHORTNESS OF BREATH Albuterol/Ipratropium (Duoneb) 3 ml INHALATION Q4HWA.RT [facility] Last Admin: 01/05/19 06:34 Dose: 3 ml Aspirin (Aspirin, Baby) 81 mg GT DAILY@0800 [facility] Last Admin: 01/04/19 11:49 Dose: 81 mg Carvedilol (Coreg) 6.25 mg GT BID [facility] Last Admin: 01/04/19 21:36 Dose: 6.25 mg Chlorhexidine Gluconate () 1 each TOPICAL DAILY [facility] Last Admin: 01/04/19 11:23 Dose: 1 each Enoxaparin Sodium (Lovenox) 40 mg SC DAILY@1000 [facility] Last Admin: 01/04/19 11:23 Dose: 40 mg Famotidine (Pepcid) 20 mg GT BID [facility] Last Admin: 01/04/19 21:36 Dose: 20 mg Glucagon () 1 mg IM .X1 PRN PRN Reason: Hypoglycemia Sodium Chloride () 250 mls @ 15 mls/hr IV .[id number] PRN PRN Reason: SALINE FLUSH Piperacillin Sod/Tazobactam (Sod 3.375 gm/ Sodium Chloride) 50 mls @ 12.5 mls/hr IV Q8 [facility] Last Admin: 01/05/19 06:46 Dose: 12.5 mls/hr Insulin Human Lispro (Humalog Kwikpen (Bkc)) 0 unit SQ ACHS [facility]; Protocol Last Admin: 01/05/19 07:49 Dose: Not Given Magnesium Hydroxide (Milk Of Magnesia) 30 ml PO DAILY PRN PRN PRN Reason: Constipation Methylprednisolone (Solu-Medrol) 40 mg IV Q12 [facility] Sodium Chloride () 5 - 15 ml IV UD PRN PRN Reason: SALINE FLUSH Code Visit Inpatient E&M: 63117 Subs Hosp L3
[2019-01-05] MEDS: Carvedilol 6.25 MG Tablet PO ×2 (10:48→21:17)
[2019-01-05] MEDS: Famotidine 20 MG Tablet PO ×2 (10:48→21:17)
[2019-01-05] MEDS: Enoxaparin 40 MG/0.4 ML Syringe SC (10:49)
[2019-01-05] MEDS: CHLORHEXIDINE GLUC 2% CLOTH 1 EACH TOWELETTE TOPICAL (10:50)
[2019-01-05 11:01] LABS: Bedside Glucose 229 mg/dL (70-110)
[2019-01-05] MEDS: 0.9% NaCl Peripheral Flush Adult/Peds IV (13:41)
[2019-01-05 16:11] LABS: Bedside Glucose 225 mg/dL (70-110)
[2019-01-05 22:15] LABS: Bedside Glucose 161 mg/dL (70-110)
[2019-01-05] MEDS: Acetaminophen 325 MG Tablet 650 MG PO (22:26)
[2019-01-05] MEDS: guaiFENesin 10 ML UDC (200MG/10ML) 20 ML PO (22:26)
[2019-01-06] VITALS (7 sets, daily range): BP systolic 138–165; BP diastolic 68–77; PULSE 65–79; RESP 16–18; TEMP 36.5–37.2; O2SAT 93–96
[2019-01-06] MEDS: Insulin Lispro 100 UNIT/ML INSULN.PEN SQ ×2 (06:31→11:21)
[2019-01-06 06:51] LABS: Bedside Glucose 219 mg/dL (70-110)
[2019-01-06] MEDS: Ipratropium/Albuterol Sulfate 3 ML AMPUL.NEB INHALATION (07:01)
[2019-01-06] MEDS: Famotidine 20 MG Tablet PO (08:44)
[2019-01-06] MEDS: Aspirin 81 MG TAB.CHEW PO (08:44)
[2019-01-06] MEDS: Enoxaparin 40 MG/0.4 ML Syringe SC (08:44)
[2019-01-06] MEDS: Carvedilol 6.25 MG Tablet PO (08:45)
[2019-01-06] MEDS: 0.9% NaCl Peripheral Flush Adult/Peds IV (08:45)
--- NOTE | 2019-01-06 10:55 | CASEMGMT ---
THOMAS OLMBARDO assessment: Face to Face with patient for initial transition planning/care coordination assessment. THOMAS LOMBARDO introduced self and role at [facility], pt voices understanding and consents to assessment at this time. Pt is sitting up in bed in no distress at this time. Pt is A/Ox4 at this time and answers all questions appropriately at this time. Care providers, pharmacy, and demographics verified at this time. PCP: Naida Jimenez Specialists: Pt states currently has no specialists. Preferred Pharmacy: [facility] mail order [facility] Living Will/HPOA: Pt states does not have LW/HPOA and declines info at this time. LNOK: Kristin Green, daughter; Bhanu Green, son in law Living Arrangements: Pt states lives with daughter and son-in-law in a mobile home with a ramp. Pt states is independent with ADL's at home but states daughter helps with cleaning/cooking. Transportation: Pt states family drives and states no transportation concerns at this time. DME/HHC: Pt states has the following DME: cane, w/c, rollater x2, and bsc/raised toilet seat. Pt states no need for any further DME at this time but states no preference for DME company, if needed. Pt states has had [facility] for therapy and was discharged from them last week. Pt states has been to [facility] in the past as well. Pt declines need for HHC or OP therapy at this time. Pt states no concerns with going home at time of discharge. Pt states is disabled. Pt states smokes marijuana daily and does not drink ETOH. Pt states no further concerns/needs at this time. CM to follow for any further discharge planning/needs. Advised pt to ask for CM if any further questions/concerns/needs arise, voices understanding. Pt Goal: [place] THOMAS LOMBARDO
--- NOTE | 2019-01-06 11:16 | PCM.DC ---
- Discharge Diagnoses Current Active Problems: Current Active and Chronic Problems Acute respiratory failure with hypoxia and hypercapnia (Acute) Gram-negative pneumonia (Acute) Severe sepsis (Acute) Respiratory acidosis (Acute) ARIANNE (acute kidney injury) (Acute) Hx of AKA (above knee amputation) (Chronic) You will use the following diet at home:: Cardiac Discharge Activity: May Not Drive - for 1-2 week until see PCP Weight Bearing Status: Weight bearing as tolerated Call your doctor if you observe: Fever of 101 or Higher, Inability to have a bowel movement, Shortness of breath, Chest pain, Increased palpitations (irregular heartbeat), Calf discomfort Allergies/Adverse Reactions: Allergies Sulfa (Sulfonamide Antibiotics) Allergy (Verified 07/18/16 16:31) Other Medications to take at Discharge Aspirin E.C. [Ecotrin] 650 mg PO BID 07/18/16 Acetaminophen [Tylenol] 650 mg PO BID 11/07/18 DiphenhydrAMINE [Benadryl] 50 mg PO BID 11/07/18 Carvedilol 6.25 mg PO BID 01/03/19 Escitalopram Oxalate [Lexapro] 10 mg PO DAILY 01/03/19 Ferrous Sulfate 325 mg PO DAILY 01/03/19 Lisinopril 5 mg PO DAILY 01/03/19 Melatonin 1 tab PO QHS 01/03/19 Metformin HCl [Glucophage] 850 mg PO BIDCM 01/03/19 Guaifenesin [Mucinex] 1,200 mg PO BID #14 tab.er.12h 01/06/19 Ipratropium/Albuterol Sulfate [Iprat-Albut 0.5-3(2.5) mg/3 ml] 3 ml IH Q6H #50 ampul.neb 01/06/19 Prednisone 10 mg PO UD #30 tablet 01/06/19 levoFLOXacin tablet [Levaquin tablet] 500 mg PO DAILY #5 tablet 01/06/19 The following prescriptions were given: levoFLOXacin tablet [Levaquin tablet] 500 mg PO DAILY #5 tablet Prednisone 10 mg PO UD #30 tablet Guaifenesin [Mucinex] 1,200 mg PO BID #14 tab.er.12h Ipratropium/Albuterol Sulfate [Iprat-Albut 0.5-3(2.5) mg/3 ml] 3 ml IH Q6H #50 ampul[facility] Primary Care Physician: Care Physician,No Primary [Primary Care Provider] - Please follow up with your Primary Care Physician in: IN 2 WEEK Test Results: Test results from this visit will be discussed in further detail at your follow-up appointment, if applicable. Please Follow Up With: Rodolfo Alvarado MD When: IN 4 WEEKS Please Follow Up With: Gwendolyn Sotelo NP-C When: IN 2 WEEK
--- NOTE | 2019-01-06 11:19 | DCINST_ITS ---
- Discharge Diagnoses Current Active Problems: Current Active and Chronic Problems Acute respiratory failure with hypoxia and hypercapnia (Acute) Gram-negative pneumonia (Acute) Severe sepsis (Acute) Respiratory acidosis (Acute) ARIANNE (acute kidney injury) (Acute) Hx of AKA (above knee amputation) (Chronic) You will use the following diet at home:: Cardiac Discharge Activity: May Not Drive - for 1-2 week until see PCP Weight Bearing Status: Weight bearing as tolerated Call your doctor if you observe: Fever of 101 or Higher, Inability to have a bowel movement, Shortness of breath, Chest pain, Increased palpitations (irregular heartbeat), Calf discomfort Allergies/Adverse Reactions: Allergies Sulfa (Sulfonamide Antibiotics) Allergy (Verified 07/18/16 16:31) Other Medications to take at Discharge Aspirin E.C. [Ecotrin] 650 mg PO BID 07/18/16 Acetaminophen [Tylenol] 650 mg PO BID 11/07/18 DiphenhydrAMINE [Benadryl] 50 mg PO BID 11/07/18 Carvedilol 6.25 mg PO BID 01/03/19 Escitalopram Oxalate [Lexapro] 10 mg PO DAILY 01/03/19 Ferrous Sulfate 325 mg PO DAILY 01/03/19 Lisinopril 5 mg PO DAILY 01/03/19 Melatonin 1 tab PO QHS 01/03/19 Metformin HCl [Glucophage] 850 mg PO BIDCM 01/03/19 Guaifenesin [Mucinex] 1,200 mg PO BID #14 tab.er.12h 01/06/19 Ipratropium/Albuterol Sulfate [Iprat-Albut 0.5-3(2.5) mg/3 ml] 3 ml IH Q6H #50 ampul.neb 01/06/19 Prednisone 10 mg PO UD #30 tablet 01/06/19 levoFLOXacin tablet [Levaquin tablet] 500 mg PO DAILY #5 tablet 01/06/19 The following prescriptions were given: levoFLOXacin tablet [Levaquin tablet] 500 mg PO DAILY #5 tablet Prednisone 10 mg PO UD #30 tablet Guaifenesin [Mucinex] 1,200 mg PO BID #14 tab.er.12h Ipratropium/Albuterol Sulfate [Iprat-Albut 0.5-3(2.5) mg/3 ml] 3 ml IH Q6H #50 ampul.[facility] Primary Care Physician: Care Physician,No Primary [Primary Care Provider] - Please follow up with your Primary Care Physician in: IN 2 WEEK Test Results: Test results from this visit will be discussed in further detail at your follow- up appointment, if applicable. Please Follow Up With: Rodolfo Alvarado MD When: IN 4 WEEKS Please Follow Up With: Gwendolyn Sotelo NP-C When: IN 2 WEEK
--- NOTE | 2019-01-06 11:19 | DS.PCM_ITS ---
Discharge Date and Diagnosis Date of Admission: 01/03/19 Date of Discharge: 01/06/19 - Primary Discharge Diagnosis Active and Suspected Problems (Last Updated 01/03/19 @ 10:44 by Bhanu Olmedo DO) Acute respiratory failure with hypoxia and hypercapnia (Acute) Gram-negative pneumonia (Acute) Severe sepsis (Acute) Respiratory acidosis (Acute) ARIANNE (acute kidney injury) (Acute) - Secondary Discharge Diagnosis Chronic Problems Hx of AKA (above knee amputation) (Chronic) Hospital Course and Treatment Consultations 01/05/19 15:03 Consult: Onc/Wound/septic tank servicer Routine Comment: Operations: None Summary of Care Provided: [] This is a 63-year-old gentleman with history of COPD and pneumonia about 2 months ago was admitted with shortness of breath, cough and was intubated in the ER. 1. Acute hypoxic and hypercapnic respiratory failure * Suspect due to suspected gram-negative pneumonia plus his underlying COPD * The patient is extubated on 01/05/2019. 2. Severe sepsis, present on admission secondary to possible healthcare associated pneumonia, with suspicion of gram negative pneumonia * Vanc and Zosyn * pulm toilet * Urinary antigens are negative for Legionella and Streptococcus. Sputum culture preliminary appears to be normal respiratory glenis. The patient is being discharged on 5 more days of Levaquin to complete a total of 8 days of antibiotics. 4. Possible AECOPD * steroids and bronchodilators. Patient is being discharged on DuoNeb nebulization every 6 hourly and Tapering dose of prednisone. Patient does not have inhaler at home and with his body habitus and size and severity of COPD, I think he needs nebulization. Follow-up in pulmonary clinic with Gwendolyn Beach NP in [address] Alvarado in 4 weeks. 5. ARIANNE * Resolved. Creatinine on baseline 1.0. 6. CAD/PAD/DM2: Multiple comorbidities complicates the present care and expect difficult and delay recovery 7. VTE prophylaxis: On Lovenox Discharge medication reconciliation done. Discharge follow-up instructions completed. Discharge process discussed with the patient and all questions were answered to patient's satisfaction. Prednisone, Mucinex, and DuoNeb nebulization. Total time spent, ex prescription given for Levaquin, act 35 minutes on discharge meds reconciliation, examination, review of imaging and blood test and discussion with the patient on follow-up instructions. Subjective: Patient is on baseline. Pulse ox 93% on room air. No tachypnea. No tachycardia. Objective: General: Alert, Oriented x3, Cooperative HEENT: Atraumatic, PERRLA, EOMI, Normocephalic Neck: Supple, No JVD, Negative Carotid Bruits Lungs: Clear to auscultation, No rhonchi, No wheeze, No rales, air entry is bilaterally diminished Cardiovascular: Regular rate, Regular Rhythm, Normal S1, Normal S2, No murmurs Abdomen: Bowel Sounds Present, Soft, Non Tender Extremities: Capillary Refill Less than 3 Seconds, Edema, Left above-knee amputation Skin: Ulcer/ Wound - Small scabs with dry wound present on the toes of right foot Musculoskeletal: No Tenderness to Palpation of Joints or Extremities, Arthritic Changes Lymphatic: No Cervical, Supraclavicular, or Inguinal Adenopathy Neurological: Cranial nerves II-XII grossly intact, Deep Tendon Reflexes 2+/4 and Symmetrical, Neuro grossly intact Psych/Mental Status: Normal Affect, Appropriate - Physical Exam Vital Signs Temp Pulse Resp BP Pulse Ox 99.0 F 75 18 165/77 H 93 01/06/19 09:00 01/06/19 11:01 01/06/19 09:00 01/06/19 09:00 01/06/19 09:00 Oxygen Flow Rate (L/min) 3 Oxygen Delivery Method Room Air Weight: 262 lb 9.129 oz Body Mass Index (BMI) 39.9 Intake and Output for Last 24 Hours 01/04/19 01/05/19 01/06/19 23:59 23:59 23:59 Intake Total 2621.1 / 2621.1 1565.2 / 1565.2 240 / 240 Output Total 1275 / 1275 1550 / 1550 650 / 650 Balance 1346.1 / 1346.1 15.2 / 15.2 -410 / -410 Microbiology Past 72 Hours 01/03/19 13:55 Gram Stain - Final Sputum, Induced/Lukens Respiratory Culture - Final 01/03/19 07:40 Blood Culture - Preliminary Blood Culture (Wb) - Anticubital Right No growth in 48 hours. 01/03/19 07:45 Blood Culture - Preliminary Blood Culture (Wb) - Left Forearm No growth in 48 hours. 01/03/19 12:55 Streptococcus pneumoniae Antigen (M - Final Urine Catheter - Perez 01/03/19 12:55 Legionella Antigen - Final Urine Catheter - Perez POC Glucose 01/06/19 01/05/19 01/05/19 06:30 21:10 16:09 POC Glucose 219 H 161 H 225 H Discharge Activity: May Not Drive - for 1-2 week until see PCP Weight Bearing Status: Weight bearing as tolerated Call your doctor if you observe: Fever of 101 or Higher, Inability to have a bowel movement, Shortness of breath, Chest pain, Increased palpitations (irregular heartbeat), Calf discomfort Home Medications: Medications to take at Discharge Aspirin E.C. [Ecotrin] 650 mg PO BID 07/18/16 Acetaminophen [Tylenol] 650 mg PO BID 11/07/18 DiphenhydrAMINE [Benadryl] 50 mg PO BID 11/07/18 Carvedilol 6.25 mg PO BID 01/03/19 Escitalopram Oxalate [Lexapro] 10 mg PO DAILY 01/03/19 Ferrous Sulfate 325 mg PO DAILY 01/03/19 Lisinopril 5 mg PO DAILY 01/03/19 Melatonin 1 tab PO QHS 01/03/19 Metformin HCl [Glucophage] 850 mg PO BIDCM 01/03/19 Guaifenesin [Mucinex] 1,200 mg PO BID #14 tab.er.12h 01/06/19 Ipratropium/Albuterol Sulfate [Iprat-Albut 0.5-3(2.5) mg/3 ml] 3 ml IH Q6H #50 ampul.neb 01/06/19 Prednisone 10 mg PO UD #30 tab 01/06/19 levoFLOXacin tablet [Levaquin tablet] 500 mg PO DAILY #5 tablet 01/06/19 Following Prescrptions Were Given to Patient: levoFLOXacin tablet [Levaquin tablet] 500 mg PO DAILY #5 tablet Prednisone 10 mg PO UD #30 tab Guaifenesin [Mucinex] 1,200 mg PO BID #14 tab.er.12h Ipratropium/Albuterol Sulfate [Iprat-Albut 0.5-3(2.5) mg/3 ml] 3 ml IH Q6H #50 ampul.neb Primary Care Physician: Care Physician,No Primary [Primary Care Provider] - Please follow up with your Primary Care Physician in: IN 2 WEEK Please Follow Up With: Rodolfo Alvarado MD When: IN 4 WEEKS Please Follow Up With: Gwendolyn Sotelo NP-C When: IN 2 WEEK Medical Necessity - Tobacco Use Smoking Status: Former smoker Meaningful Use Info Meaningful Use Diagnoses (Choose all that apply): None applicable Code Visit Inpatient E&M: 34241 Disch Hosp
[2019-01-06] MEDS: amLODIPine 10 MG Tablet PO (11:21)
--- NOTE | 2019-01-06 11:22 | CASEMGMT ---
Addendum entered by Isabel Lowe 01/06/19 11:42: Pt updated on nebulizer and voices understanding at this time. Pt voices no further questions/concerns/needs at this time. Hanna GUZMAN CM Original Note: Dr. Diallo states that he would like pt set up with nebulizer, pt states no preference for DME and [employer] is preferred provider for [employer]. Referral faxed to [facility] at this time. Hanna GUZMAN CM
[2019-01-06 11:30] LABS: Bedside Glucose 258 mg/dL (70-110)
--- NOTE | 2019-01-06 12:25 | PHA.DC.MC ---
Pharmacy Service has performed discharge medication reconciliation and counseling for this patient. The patient's discharge medication list was reviewed for discrepancies and discrepancies were resolved. The patient was counseled on the following discharge medications and changes in medications for homegoing were reviewed. 1. PREDNISONE 2. LEVAQUIN The Reason for Use, instructions for use, and potential side effects were reviewed for all new medications. The patient's questions regarding all of their medications were answered. The patient was able to verbally demonstrate an understanding of their discharge medications. Home Medications Aspirin E.C. [Ecotrin] 650 mg PO BID 07/18/16 Acetaminophen [Tylenol] 650 mg PO BID 11/07/18 DiphenhydrAMINE [Benadryl] 50 mg PO BID 11/07/18 Carvedilol 6.25 mg PO BID 01/03/19 Escitalopram Oxalate [Lexapro] 10 mg PO DAILY 01/03/19 Ferrous Sulfate 325 mg PO DAILY 01/03/19 Lisinopril 5 mg PO DAILY 01/03/19 Melatonin 1 tab PO QHS 01/03/19 Metformin HCl [Glucophage] 850 mg PO BIDCM 01/03/19 Guaifenesin [Mucinex] 1,200 mg PO BID #14 tab.er.12h 01/06/19 Ipratropium/Albuterol Sulfate [Iprat-Albut 0.5-3(2.5) mg/3 ml] 3 ml IH Q6H #50 ampul.neb 01/06/19 Prednisone 10 mg PO UD #30 tablet 01/06/19 levoFLOXacin tablet [Levaquin tablet] 500 mg PO DAILY #5 tablet 01/06/19
[2019-01-06 12:59] LABS: Pathologist Review Reviewed
--- NOTE | 2019-01-07 08:47 | CASEMGMT ---
F2F obtained and faxed to [facility] at this time. Hanna GUZMAN CM
--- NOTE | 2019-01-07 13:20 | CASEMGMT ---
THOMAS DC PHONE CALL DC DATE: 01/06/19 DC Disposition: Home LACE/STRATA: 08/20 Pt does not have home phone listed. Call to Kristin Green, pt's daughter who stated that pt does not have questions re: prescriptions, has f/u appointment at [facility]. States pt is still coughing and not feeling well, but will f/u with clinic. No other questions or concerns voiced. Christopher MACIASN RN ACM
== END 2019-01-06 13:10 | disposition home or self-care (01) | DRG 871 ==
LOC: ED 07:34 → ICU 09:40 → PCU 01-05 13:41
PROVIDERS: Internal Medicine Critical Care Medicine; Emergency Provider Emergency Medicine; Visit Provider Internal Medicine
DX: A41.50 Gram-negative sepsis, unspecified (principal); J15.6 Pneumonia due to other Gram-negative bacteria; J96.01 Acute respiratory failure with hypoxia; J96.02 Acute respiratory failure with hypercapnia; N17.9 Acute kidney failure, unspecified; E87.2 Acidosis; R65.20 Severe sepsis without septic shock; I25.10 Atherosclerotic heart disease of native coronary artery without angina pectoris; Z89.612 Acquired absence of left leg above knee; I73.9 Peripheral vascular disease, unspecified; E11.9 Type 2 diabetes mellitus without complications; E66.01 Morbid (severe) obesity due to excess calories; Z68.39 Body mass index [BMI] 39.0-39.9, adult; Z87.891 Personal history of nicotine dependence
CPT/HCPCS: 31500; 31720; 36415; 36600; 51702; 71045; 74018; 80048; 80053; 81001; 82803; 82962; 83605; 83880; 84484; 85025; 85384; 85610; 85730; 87040; 87070; 87205; 87449; 87493; 87640; 93005; 93306; 94002; 94003; 94640; 94660; 95831; 97110; 97162; 97166; 97530; 97802; 99251; 99285; J7030; J7040; Q9957; A4216; C8929; G0463

== ENCOUNTER 2019-01-20 15:33 | Emergency (ER) | payer MEDICARE, SELFPAY ==
[2019-01-03 13:00] VITALS: BMI 39.9
[2019-01-20] VITALS (8 sets, daily range): BP systolic 140–149; BP diastolic 79–90; PULSE 95–134; RESP 12–22; TEMP 36.9–37.6; O2SAT 92–95; BMI 35.6
--- NOTE | 2019-01-20 15:47 | ED.VIS.GEN ---
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 States his breathing has been good, he is been doing nebulizer treatments regularly, but states he comes to the hospital because today his cough became much worse, but not necessarily his breathing. Dates he has had a mild right earache as well. No subjective fevers or chills. He has a history of COPD and congestive heart failure, but states that his hospitalization was really more because of his pulmonary issues, he was ventilated mechanically in the ICU for short period of time and wants to make sure he gets appropriate treatment if he is getting worse so that he does not have to do that again. Recent Illness/Hospitalization: Yes - Past Medical History (1) COPD (chronic obstructive pulmonary disease) Status: Chronic (2) CHF (congestive heart failure) Status: Chronic (3) CAD (coronary artery disease), [place] coronary artery Status: Chronic (4) Hx of AKA (above knee amputation) Status: Chronic Past Medical History - Allergies and Home Meds Allergies/Adverse Reactions: Allergies Sulfa (Sulfonamide Antibiotics) Allergy (Verified 01/20/19 15:40) Other Primary Care Physician: [facility] [NON-STAFF] - Surgical History: coronary bypass surgery, - - permanent pacemaker with defibrillator ; right wrist surgery; mastoidectomy. left hip disartic. Smoking Status: Former smoker Drugs: None - Family History Maternal Family History: Reports: Dementia, Heart Disease, Hypertension Paternal Family History: Reports: Heart Disease Review of Systems General: Denies: Chills, Fever, Sweats Eyes: Denies: Visual changes - bilaterally, Diplopia ENT: Reports: Right ear pain, - - chronically deaf left ear. Denies: Rhinorrhea, Sore throat Cardiovascular: Denies: Chest pain, Palpitations Respiratory: Reports: Dyspnea - no worse now than past week, Cough, Sputum - clear this AM. Denies: Orthopnea, Paroxysmal nocturnal dyspnea Gastrointestinal: Denies: Abdominal pain, Nausea, Vomiting, Diarrhea, Melena, Hematochezia Genitourinary: Denies: Dysuria, Hematuria, Frequency Musculoskeletal: Reports: Swelling - chronic RLE, no worse lately. Denies: Back pain, Extremity Pain Skin: Denies: Rash, Wounds Neurological: Denies: Headache, Weakness, Numbness Physical Exam Vital Signs/Narrative: Vital Signs Temp Pulse Resp BP Pulse Ox 01/20/19 15:47 99.4 F H 01/20/19 15:37 98.5 F 108 H 20 H 144/88 H 93 Inital Vital Signs reviewed: Yes General: Well nourished, Well developed, Obese, No Acute Distress Head: Normocephalic, Atraumatic Eyes: Perrl, EOMI ENT: Moist mucous membranes, No rhinorrhea, TM's clear - right. left w/ chronic scarring and perforation; no discharge., - - POP clear.. Negative for: Nasal congestion, Sinus tenderness Neck: Supple, Nontender, No lymphadenopathy, No JVD Cardiovascular: Regular rate, Regular rhythm, No murmurs Respiratory: No distress - speaking in full sentences, Wheezing - diffuse, expiratory > inspiratory. Negative for: Rales, Rhonchi Abdomen: Soft, Nontender, Nondistended, Normal bowel sounds Extremities: Nontender, Edema - mild chronic distal RLE stasis dermatitis, - - s/p LLE hip disarticulation.. Negative for: Calf Tenderness Skin: Normal color, No rash, No Trauma Neurological: Alert, Oriented x3, Cranial nerves II-XII grossly intact, Normal Strength, Normal Sensation Psychological: Normal affect, Normal Mood Diagnostic/Tx/Re-eval Impressions Chest X-Ray 01/20/19 16:10 IMPRESSION: Mild cardiomegaly. Status post sternotomy. There remains slightly increased density of the right lung base, improved from the previous study however. There has been interval removal of previously noted endotracheal tube. Electronically Signed: Will Galindo MD at 16:31 EDT , Service support , 01/20/19 16:10 Chest PA and Lateral [RAD] Stat Laboratory Results 05/06/19 05/06/19 18:22 18:22 WBC 11.6 H RBC 5.77 Hgb 16.0 Hct 47.7 MCV 82.7 MCH 27.7 MCHC 33.5 RDW 17.7 H RDW Differential 53.6 H Plt Count 173 MPV 9.8 Immature Gran % (Auto) 0.100 Neut % (Auto) 81.0 H Lymph % (Auto) 9.0 L [place] % (Auto) 9.5 Eos % (Auto) 0.2 Baso % (Auto) 0.2 Absolute Neuts (auto) 9.4 H Absolute Lymphs (auto) 1.04 Total Counted Not Reportable Sodium 129 L Potassium 3.3 L Chloride 98 Carbon Dioxide 22.0 Anion Gap 9 BUN 25 H Creatinine 1.00 Estim Creat Clear Calc 80.10 Est GFR (MDRD) Af Amer 98 Est GFR (MDRD) Non-Af 81 BUN/Creatinine Ratio 25.0 H Glucose 266 H Calcium 8.2 L - Medical Decision Making Chest x-ray shows improvement compared with his last one when he was hospitalized. He felt a little better after breathing treatments, however he felt like he had a lot of congestion in his chest that he wanted to cough out but was unable and when it is to help with that. Furthermore he had a headache and wanted something for that and just was not feeling well and was concerned about going home. I discussed with Dr. Cortes, covering for Dr. Alvarado who saw the patient in the hospital and is scheduled to see him in follow-up in a week, we discussed the case. Given the available information, he advised not restarting any antibiotics, and agrees with me that the patient does not need more prednisone right now, but advises that the patient call for a follow-up appointment within the next couple days to be reevaluated sooner than previously scheduled. In addition to this, I ran some blood test, he has a very mild leukocytosis with leftward shift but he just finished prednisone and I think this is probably related. I also gave him Tylenol for his headache as well as some Robitussin-DM for his congestion. Afterwards, he states that it felt like the Robitussin really helped his chest congestion, and he feels overall much better and wants to go home. I think that is very reasonable. He will follow-up with pulmonary. Of note his sodium and potassium are both a little low, I will give him a potassium pill before he goes home. His sodium is 129, that should be reevaluated at some point but does not require admission. ED Disposition - Plan for ED Patient: Disposition: Home or Assisted Living Diagnosis: Bronchospasm, Chest congestion, Hypokalemia, COPD (chronic obstructive pulmonary disease) Instructions: ED Upper Resp Infec No Abx Tx Referrals: Rodolfo Alvarado MD [STAFF PHYSICIAN] - As soon as possible (call tomorrow AM for appt within next couple days -- office staff should have your name and know that you are calling, unless you receive a call from them)
[2019-01-20] MEDS: Albuterol 2.5 MG/3 ML VIAL.NEB. INHALATION ×3 (15:56→18:53)
--- NOTE | 2019-01-20 16:10 | RAD_ITS ---
STUDY: X-RAY CHEST REASON FOR EXAM: Male, 63 years old. Cough, shortness of breath TECHNIQUE: PA and lateral views of the chest. COMPARISON: Prior study of 01/03/2019 FINDINGS: A left-sided pacemaker is present. There remains increased pneumonic density of the right lung base, improved from the previous study. There is no demonstrated pleural abnormality. There is mild cardiac enlargement. Status post sternotomy changes are noted. Normal mediastinum and maxwell. Normal visualized pulmonary arteries. There are calcified plaques of the aortic arch. There are diffuse degenerative changes of the visualized thoracic spine. Normal visualized ribs, clavicles, and shoulders. There is no demonstrated abnormality of the visualized soft tissue structures of the upper abdomen. RAD/Chest PA and Lateral IMPRESSION: Mild cardiomegaly. Status post sternotomy. There remains slightly increased density of the right lung base, improved from the previous study however. There has been interval removal of previously noted endotracheal tube. Electronically Signed: Will Galindo MD at 16:31 EDT , Service support ,
[2019-01-20] MEDS: Acetaminophen 500 MG Tablet 1000 MG PO (18:25)
[2019-01-20] MEDS: Ketorolac 15 MG/ML Vial IV (18:26)
[2019-01-20] MEDS: guaiFENesin Dm 10 ML UDC PO (18:27)
[2019-01-20 18:47] LABS: Absolute Lymphocyte Count 1.04 X10^3/ul (0.83-4.51); Absolute Neutrophil Count 9.4 X10^3/uL (2.0-7.7); Basophil# 0.02 X10^3/uL; Basophil% 0.2 % (0-1); Eosinophil# 0.02 X10^3/uL; Eosinophils% 0.2 % (0-5); Hematocrit 47.7 % (40-54); Lymphocyte # 1.04 X10^3/ul (4.0); Mean Corp Hgb Conc 33.5 g/gl (32-36); Mean Corpuscular Hgb 27.7 pg (27.0-32.0); Mean Corpuscular Volume 82.7 fL (80-94); Mean Platelet Vol. 9.8 fl (6.2-12.0); Monocyte% 9.5 % (0-10); Neutrophil # 9.39 X10^3/uL (2.7-7.7); Platelet Count 173 K/mm3 (150-450); RBC Distribution Width CV 17.7 % (11.6-14.6); RBC Distribution Width SD 53.6 fl (35.1-43.9); Red Blood Count 5.77 M/mm3 (4.6-6.2); White Blood Count 11.6 K/mm3 (4.4-11.0)
[2019-01-20 18:49] LABS: POSITIVE COUNT NO; POSITIVE DIFFERENTIAL NO; POSITIVE MORPHOLOGY NO
[2019-01-20 18:59] LABS: Anion Gap 9 (5-15); BUN 25 mg/dL (7-18); Calcium,Total 8.2 mg/dL (8.5-10.1); Chloride 98 mmol/L (98-107); EST Glomerular Filtration Rate 81 mL/min (>60); Est Glom Filt Rate - Afr Amer 98 mL/min (>60); Glucose 266 mg/dL (74-106); Potassium 3.3 mmol/L (3.5-5.1); Sodium Level 129 mmol/L (136-145)
== END 2019-01-20 20:25 | disposition home or self-care (01) ==
PROVIDERS: Emergency Provider Emergency Medicine
DX: J98.01 Acute bronchospasm (principal); J44.9 Chronic obstructive pulmonary disease, unspecified; R09.89 Other specified symptoms and signs involving the circulatory and respiratory systems; E87.6 Hypokalemia; I50.9 Heart failure, unspecified; I25.10 Atherosclerotic heart disease of native coronary artery without angina pectoris; Z89.619 Acquired absence of unspecified leg above knee; Z95.1 Presence of aortocoronary bypass graft; Z95.0 Presence of cardiac pacemaker; Z87.01 Personal history of pneumonia (recurrent)
CPT/HCPCS: 71046; 80048; 85025; 94640; 96374; 99285; A4216

== ENCOUNTER 2019-02-17 08:00 | Emergency (ER) | payer MEDICARE, SELFPAY ==
[2019-01-20 15:37] VITALS: BMI 35.6
--- NOTE | 2019-02-17 08:11 | ED.VISSUMM ---
- ER Visit Summary Date of Service: 02/17/19 Chief Complaint: [Cardiac arrest] History of Present Illness: The patient is a 63 M [presents to the emergency department via EMS. Patient initially had a daughter call EMS for shortness of breath. History is coming from EMS as there is no family with patient. On EMS arrival the patient was dyspneic but not really answering questions for them. On way out to ambulance patient arrested. Patient apparently has a pacer defibrillator. It was noted that patient was shocked. EMS shocked patient 4 times and intubated with a supraglottic airway. Patient continued with V. fib. Patient did receive 1 epinephrine through the IO route. On arrival to ER patient had CPR in progress and was unresponsive. Patient did not have any cardiac activity or spontaneous respirations.] Physical Examination: [HEENT-pupils are fixed and dilated at 8 mm. No external evidence of trauma to the head noted. Patient had a cyanotic. Patient did have a supraglottic airway in place. Cardiac exam-no cardiac sounds auscultated. Lung exam-no spontaneous breath sounds Abdomen-protuberant. Patient morbidly obese. Extremities-patient has above-knee amputation of the left leg. Patient cyanotic.] Test Results: [None indicated] Emergency Department Course and Treatment: [CPR continued. Patient was intubated with a 7.5 ET tube easily. Patient was given amiodarone 300 mg. Patient was given epinephrine. CPR continued. Patient had multiple defibrillations for continued V. fib without a pulse. Patient downtime of about 25 minutes before arrival in the emergency department. Time of was called at 8:08.] Treatment Plan: [] Disposition: [/] Impression: [Cardiopulmonary arrest ] This note was generated with [employer] dictation software. It may contain incorrect words, spelling, and punctuation that were not noted in review of the chart prior to signing ED Disposition - Plan for ED Patient: Referrals: [facility] [Primary Care Provider] -
[2019-02-17 08:15] LABS: Bedside Glucose 147 mg/dL (70-110)
--- NOTE | 2019-02-17 10:43 | CASEMGMT ---
SW responded to code blue. SW looked up patient and he lives with a daughter, Kristin and son in law Bhanu. Family did not show up so SW called and spoke with Bhanu. He said they would be here soon. Once they arrived SW notified physician and he notified them of patient's . SW provided emotional support. Patient's called family. Once ready SW accompanied them to patient's room. SW waited outside room and directed arriving family members to room. SW continued to monitor and offer support. AGUSTINA gave patient's daughter a list of homes that do cremation. Once she decided on [place] AGUSTINA notified foam rubber fabricator, Melodie. AGUSTINA Castillo then came to ED to relieve this SW. AGUSTINA notified Kristin that AGUSTINA is leaving and Anna is a SW that is available. AGUSTINA offered condolences for her loss. Chelsy MORRELL MSW
== END 2019-02-17 11:28 ==
PROVIDERS: Emergency Provider Emergency Medicine
DX: I46.9 Cardiac arrest, cause unspecified (principal); Z89.612 Acquired absence of left leg above knee; Z95.810 Presence of automatic (implantable) cardiac defibrillator; I25.10 Atherosclerotic heart disease of native coronary artery without angina pectoris; I50.9 Heart failure, unspecified; E11.9 Type 2 diabetes mellitus without complications; I10 Essential (primary) hypertension; I48.91 Unspecified atrial fibrillation
CPT/HCPCS: 31500; 82962; 92950; 99291; J7030; A4216